=== PATIENT | female | born 1975 | race Caucasian/White ===

== ENCOUNTER 2018-11-16 22:28 | Emergency (ER) | payer SELFPAY ==
[2018-11-16] MEDS ORDERED: Sodium Chloride 0.9% 1,000 ML IV ONE (23:01)
[2018-11-16] MEDS ORDERED: Albuterol/Ipratropium 3.0-0.5 MG/3 ML Neb Soln NEB ONE (23:02)
[2018-11-16] MEDS ORDERED: methylPREDNISolone Sodium Succinate 125 MG/2 ML SDV IVPUSH ONE (23:02)
--- NOTE | 2018-11-16 23:03 | EDM.PDOC ---
ED HPI GENERAL MEDICAL PROBLEM - General Chief Complaint: Syncope Stated Complaint: PT FAINTED Time Seen by Provider: 11/16/18 23:03 Source of Information: Reports: Patient - History of Present Illness INITIAL COMMENTS - FREE TEXT/NARRATIVE: HISTORY AND PHYSICAL: History of present illness: [Patient with complaint of fainting She states she has been feeling generally weak similar to a previous episode of urosepsis states she did faint for a period after standing she is vague in this history no evidence of head injury or trauma no current distress whatsoever Denies fever nausea vomiting chills sweats no chest pain shortness breath headache dizziness palpitation no bowel or urine symptoms ] Review of systems: As per history of present illness and below otherwise all systems reviewed and negative. Past medical history: As per history of present illness and as reviewed below otherwise noncontributory. Surgical history: As per history of present illness and as reviewed below otherwise noncontributory. Social history: No reported history of drug or alcohol abuse. Family history: As per history of present illness and as reviewed below otherwise noncontributory. Physical exam: HEENT: Atraumatic, normocephalic, pupils reactive, negative for conjunctival pallor or scleral icterus, mucous membranes moist, throat clear, neck supple, nontender, trachea midline. Lungs: Clear to auscultation, breath sounds equal bilaterally, chest nontender. post neb and Solu-Medrol Heart: S1S2, regular, negative for clicks, rubs, or JVD. Abdomen: Soft, nondistended, nontender. Negative for masses or hepatosplenomegaly. Negative for costovertebral tenderness. Pelvis: Stable nontender. Genitourinary: Deferred. Rectal: Deferred. Extremities: Atraumatic, negative for cords or calf pain. Neurovascular unremarkable. Neuro: Awake, alert, oriented. Cranial nerves II through XII unremarkable. Cerebellum unremarkable. Motor and sensory unremarkable throughout. Exam nonfocal. Diagnostics: [CBC CMP UA hCG Chest [address] no contrast ] Therapeutics: ns saline DuoNeb Solu-Medrol 125 mg IV Levaquin 500 mg by mouth now and daily #10 no refill Patient observed for extended period resting comfortably for nearly 5 hours patient has been in no distress and remained hemodynamically stable during episode she has been up and out of bed to the bathroom several times without difficulty Impression: [ vasovagal Syncope] UTI Definitive disposition and diagnosis as appropriate pending reevaluation and review of above. Generalized Pain Score (Numeric/FACES): 3 - Related Data Allergies Allergy/AdvReac Type Severity Reaction Status Date / Time Penicillins Allergy Vomiting Verified 11/16/18 22:50 Home Meds: Home Meds Ondansetron [Zofran] 1 tab PO ASDIRECTED PRN 08/17/18 [History] Past Medical History HEENT History: Reports: Impaired Vision, Other (See Below) Other HEENT History: wears glasses Cardiovascular History: Reports: Hypertension Respiratory History: Reports: PE Psychiatric History: Reports: Anxiety Hematologic History: Reports: Other (See Below) Other Hematologic History: sepsis - Infectious Disease History Infectious Disease History: Reports: Chicken Pox Social & Family History - Family History Family Medical History: Noncontributory - Tobacco Use Smoking Status *Q: Current Every Day Smoker Years of Tobacco use: 27 Packs/Tins Daily: 1 - Recreational Drug Use Recreational Drug Use: No ED ROS GENERAL - Review of Systems Review Of Systems: See Below ED EXAM, GENERAL - Physical Exam Exam: See Below Course - Vital Signs Last Recorded V/S: Last Vital Signs Temp 99.0 F 11/16/18 22:51 Pulse 68 11/17/18 02:35 Resp 18 11/17/18 02:35 BP 125/78 11/17/18 02:35 Pulse Ox 97 11/17/18 02:11 - Orders/Labs/Meds Orders: Active Orders 24 hr Category Date Time Status EKG Documentation Completion [RC] STAT Care 11/16/18 23:02 Active RT Aerosol Therapy [RC] ASDIRECTED Care 11/16/18 23:02 Active Chest 1V Frontal [CR] Stat Exams 11/16/18 23:02 Taken Head wo Cont [CT] Stat Exams 11/16/18 23:02 Taken CULTURE URINE [RM] Stat Lab 11/16/18 23:30 Received Labs: Laboratory Tests 11/16/18 11/16/18 11/16/18 Range/Units 22:50 22:50 23:30 WBC 10.72 (4.0-11.0) K/uL RBC 4.18 L (4.30-5.90) M/uL Hgb 14.8 (12.0-16.0) g/dL Hct 41.8 (36.0-46.0) % MCV 100.0 H (80.0-98.0) fL MCH 35.4 H (27.0-32.0) pg MCHC 35.4 (31.0-37.0) g/dL RDW Std Deviation 53.6 (28.0-62.0) fl RDW Coeff of [place] 15 (11.0-15.0) % Plt Count 336 (150-400) K/uL MPV 8.80 (7.40-12.00) fL Neut % (Auto) 64.8 (48.0-80.0) % Lymph % (Auto) 25.0 (16.0-40.0) % [place] % (Auto) 9.8 (0.0-15.0) % Eos % (Auto) 0.2 (0.0-7.0) % Baso % (Auto) 0.2 (0.0-1.5) % Neut # (Auto) 7.0 H (1.4-5.7) K/uL Lymph # (Auto) 2.7 H (0.6-2.4) K/uL [place] # (Auto) 1.1 H (0.0-0.8) K/uL Eos # (Auto) 0.0 (0.0-0.7) K/uL Baso # (Auto) 0.0 (0.0-0.1) K/uL Nucleated RBC % 0.0 /100WBC Nucleated RBCs # 0 K/uL Sodium 140 (136-145) mmol/L Potassium 3.6 (3.5-5.1) mmol/L Chloride 104 (98-107) mmol/L Carbon Dioxide 22.2 (21.0-32.0) mmol/L BUN 9 (7.0-18.0) mg/dL Creatinine 0.8 (0.6-1.0) mg/dL Est Cr Clr Drug Dosing 81.03 mL/min Estimated GFR (MDRD) > 60.0 ml/min Glucose 114 H (74-106) mg/dL Calcium 9.3 (8.5-10.1) mg/dL Total Bilirubin 0.4 (0.2-1.0) mg/dL AST 27 (15-37) IU/L ALT 21 (14-63) IU/L Alkaline Phosphatase 115 (46-116) U/L Troponin I < 0.050 (0.000-0.056) ng/mL Total Protein 7.7 (6.4-8.2) g/dL Albumin 3.8 (3.4-5.0) g/dL Globulin 3.9 (2.6-4.0) g/dL Albumin/Globulin Ratio 1.0 (0.9-1.6) Urine Color YELLOW Urine Appearance CLOUDY Urine pH 7.0 (5.0-8.0) Ur Specific [place] 1.015 (1.001-1.035) Urine Protein TRACE H (NEGATIVE) mg/dL Urine Glucose (UA) NEGATIVE (NEGATIVE) mg/dL Urine Ketones 40 H (NEGATIVE) mg/dL Urine Occult Blood SMALL H (NEGATIVE) Urine Nitrite POSITIVE H (NEGATIVE) Urine Bilirubin NEGATIVE (NEGATIVE) Urine Urobilinogen 0.2 (<2.0) EU/dL Ur Leukocyte Esterase NEGATIVE (NEGATIVE) Urine RBC 3-6 (0-2/HPF) Urine WBC 0-1 (0-5/HPF) Ur Squamous Epith Cells FEW Urine Bacteria 3+ H (NEGATIVE) Urine Mucus LIGHT (NONE-MOD) Urine HCG, Qual (NEGATIVE) 11/16/18 Range/Units 23:30 WBC (4.0-11.0) K/uL RBC (4.30-5.90) M/uL Hgb (12.0-16.0) g/dL Hct (36.0-46.0) % MCV (80.0-98.0) fL MCH (27.0-32.0) pg MCHC (31.0-37.0) g/dL RDW Std Deviation (28.0-62.0) fl RDW Coeff of [place] (11.0-15.0) % Plt Count (150-400) K/uL MPV (7.40-12.00) fL Neut % (Auto) (48.0-80.0) % Lymph % (Auto) (16.0-40.0) % [place] % (Auto) (0.0-15.0) % Eos % (Auto) (0.0-7.0) % Baso % (Auto) (0.0-1.5) % Neut # (Auto) (1.4-5.7) K/uL Lymph # (Auto) (0.6-2.4) K/uL [place] # (Auto) (0.0-0.8) K/uL Eos # (Auto) (0.0-0.7) K/uL Baso # (Auto) (0.0-0.1) K/uL Nucleated RBC % /100WBC Nucleated RBCs # K/uL Sodium (136-145) mmol/L Potassium (3.5-5.1) mmol/L Chloride (98-107) mmol/L Carbon Dioxide (21.0-32.0) mmol/L BUN (7.0-18.0) mg/dL Creatinine (0.6-1.0) mg/dL Est Cr Clr Drug Dosing mL/min Estimated GFR (MDRD) ml/min Glucose (74-106) mg/dL Calcium (8.5-10.1) mg/dL Total Bilirubin (0.2-1.0) mg/dL AST (15-37) IU/L ALT (14-63) IU/L Alkaline Phosphatase (46-116) U/L Troponin I (0.000-0.056) ng/mL Total Protein (6.4-8.2) g/dL Albumin (3.4-5.0) g/dL Globulin (2.6-4.0) g/dL Albumin/Globulin Ratio (0.9-1.6) Urine Color Urine Appearance Urine pH (5.0-8.0) Ur Specific [place] (1.001-1.035) Urine Protein (NEGATIVE) mg/dL Urine Glucose (UA) (NEGATIVE) mg/dL Urine Ketones (NEGATIVE) mg/dL Urine Occult Blood (NEGATIVE) Urine Nitrite (NEGATIVE) Urine Bilirubin (NEGATIVE) Urine Urobilinogen (<2.0) EU/dL Ur Leukocyte Esterase (NEGATIVE) Urine RBC (0-2/HPF) Urine WBC (0-5/HPF) Ur Squamous Epith Cells Urine Bacteria (NEGATIVE) Urine Mucus (NONE-MOD) Urine HCG, Qual NEGATIVE (NEGATIVE) Meds: Medications Discontinued Medications Generic Name Dose Route Start Last Admin Trade Name Freq PRN Reason Stop Dose Admin Albuterol/Ipratropium 3 ml 11/16/18 23:02 11/16/18 23:33 Duoneb 3.0-0.5 Mg/3 Ml NEB 11/16/18 23:03 3 ml ONETIME ONE Administration Sodium Chloride 1,000 mls @ 999 mls/hr 11/16/18 23:01 11/16/18 23:26 Normal Saline IV 11/17/18 00:01 999 mls/hr STAT ONE Administration Levofloxacin 500 mg 11/17/18 01:28 Levaquin PO 11/17/18 01:29 ONETIME ONE Methylprednisolone Sodium Succinate 125 mg 11/16/18 23:02 11/16/18 23:27 Solu-Medrol IVPUSH 11/16/18 23:03 125 mg ONETIME ONE Administration Ondansetron HCl 8 mg 11/16/18 23:21 11/16/18 23:26 Zofran IVPUSH 11/16/18 23:22 8 mg ONETIME ONE Administration Ondansetron HCl Confirm 11/16/18 23:23 11/16/18 23:36 Zofran Administered 11/16/18 23:24 Not Given Dose 8 mg .ROUTE .STK-MED ONE Departure - Departure Time of Disposition: 03:08 Disposition: Home, Self-Care 01 Condition: Good Clinical Impression: UTI (urinary tract infection), Vasovagal syncope - Discharge Information Referrals: PCP,None [Primary Care Provider] - Forms: ED Department Discharge Additional Instructions: The following information is given to patients seen in the emergency department who are being discharged to home. This information is to outline your options for follow-up care. We provide all patients seen in our emergency department with a follow-up referral. The need for follow-up, as well as the timing and circumstances, are variable depending upon the specifics of your emergency department visit. If you don't have a primary care physician on staff, we will provide you with a referral. We always advise you to contact your personal physician following an emergency department visit to inform them of the circumstance of the visit and for follow-up with them and/or the need for any referrals to a consulting specialist. The emergency department will also refer you to a specialist when appropriate. This referral assures that you have the opportunity for follow-up care with a specialist. All of these measure are taken in an effort to provide you with optimal care, which includes your follow-up. Under all circumstances we always encourage you to contact your private physician who remains a resource for coordinating your care. When calling for follow-up care, please make the office aware that this follow-up is from your recent emergency room visit. If for any reason you are refused follow-up, please contact the [facility] emergency department at and asked to speak to the emergency department charge nurse. - My Orders Last 24 Hours: My Active Orders 11/16/18 23:02 EKG Documentation Completion [RC] STAT RT Aerosol Therapy [RC] ASDIRECTED Chest 1V Frontal [CR] Stat Head wo Cont [CT] Stat 11/16/18 23:30 CULTURE URINE [RM] Stat - Assessment/Plan Last 24 Hours: My Active Orders 11/16/18 23:02 EKG Documentation Completion [RC] STAT RT Aerosol Therapy [RC] ASDIRECTED Chest 1V Frontal [CR] Stat Head wo Cont [CT] Stat 11/16/18 23:30 CULTURE URINE [RM] Stat
[2018-11-16] MEDS ORDERED: Ondansetron 4 MG/2 ML SDV IVPUSH ONE (23:21)
[2018-11-16 23:22] LABS: CHLORIDE,CL 104 mmol/L (98-107); SODIUM,NA 140 mmol/L (136-145)
[2018-11-16] MEDS ORDERED: Ondansetron 4 MG/2 ML SDV ONE (23:23)
[2018-11-17] MEDS ORDERED: Levofloxacin 500 MG Tab PO ONE (01:28)
--- NOTE | 2018-11-17 11:41 | CR ---
EXAM DATE: 11/16/18 PATIENT'S AGE: 43 Patient: MARVEL DARDEN Facility: [place], [place] Site . Site : 1975 Study: XRay Chest [id number]/16/2019 12:19:56 AM Ordering Physician: Jim Huston Final Report: Indication: Syncope Technique: Chest 1 view. Comparison: None Findings: Cardiovascular and mediastinum: Heart size and vasculature are normal in caliber and appearance. Mediastinum is within normal limits. Lungs and pleural space: Lungs are clear. No sign of infiltrate or mass. No sign of pleural effusion. No pneumothorax. Bones and soft tissues: No significant findings. Impression: No sign of acute disease. Dictated by Jeni Connor MD @ Nov 17 2018 12:23AM (Electronic Signature) Report Signed by Proxy. [facility] MEDICAL CENTERAnuel
--- NOTE | 2018-11-17 11:42 | CT ---
EXAM DATE: 11/16/18 PATIENT'S AGE: 43 Patient: MARVEL DARDEN Facility: [place], [place] Site . Site : 1975 Study: CT Head [id number]/16/2019 12:20:28 AM Ordering Physician: Jim Huston Final Report: INDICATION: Syncope TECHNIQUE: CT head without contrast. COMPARISON: None FINDINGS: CSF spaces: Within normal limits for age. Brain parenchyma: The lechuga-white differentiation is normal. No sign of mass, hemorrhage, or midline shift. Skull base and calvarium: The visualized paranasal sinuses and mastoid air cells demonstrate no acute or significant findings. The visualized orbits are grossly unremarkable. No skull fractures. IMPRESSION: Unremarkable noncontrast head CT. Please note that all CT scans at this facility use dose modulation, iterative reconstruction, and/or weight-based dosing when appropriate to reduce radiation dose to as low as reasonably achievable. Dictated by Jeni Connor MD @ Nov 17 2018 12:39AM (Electronic Signature) Report Signed by Proxy. [facility]TD[facility]
== END 2018-11-17 03:23 | disposition home or self-care (01) ==
LOC: MW.ED 22:28
DX: R55 Syncope and collapse (principal); N39.0 Urinary tract infection, site not specified; I10 Essential (primary) hypertension; F17.210 Nicotine dependence, cigarettes, uncomplicated; Z88.0 Allergy status to penicillin
CPT/HCPCS: 36415; 70450; 71045; 80053; 81001; 81025; 84484; 85025; 87086; 87088; 87186; 93005; 96361; 96374; 96375; 99285; A9270; J2405; J2930; J7040; J7620-GY

== ENCOUNTER 2018-11-20 17:39 | Emergency (ER) | payer SELFPAY ==
--- NOTE | 2018-11-20 18:02 | EDM.PDOC ---
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 Past medical history: As per history of present illness and as reviewed below otherwise noncontributory. Surgical history: As per history of present illness and as reviewed below otherwise noncontributory. Social history: No reported history of drug or alcohol abuse. Family history: As per history of present illness and as reviewed below otherwise noncontributory. Physical exam: HEENT: Atraumatic, normocephalic, pupils reactive, negative for conjunctival pallor or scleral icterus, mucous membranes moist, throat clear, neck supple, nontender, trachea midline. Lungs: Clear to auscultation, breath sounds equal bilaterally, chest nontender. Heart: S1S2, regular, negative for clicks, rubs, or JVD. Abdomen: Soft, nondistended, nontender. Negative for masses or hepatosplenomegaly. Negative for costovertebral tenderness. Pelvis: Stable nontender. Genitourinary: Deferred. Rectal: Deferred. Extremities: Atraumatic, negative for cords or calf pain. Neurovascular unremarkable. Neuro: Awake, alert, oriented. Cranial nerves II through XII unremarkable. Cerebellum unremarkable. Motor and sensory unremarkable throughout. Exam nonfocal. Diagnostics: []CBC CMP UA Carboxyhemoglobin Therapeutics: [] fix the carbon monoxide leak Impression: [] carbon monoxide exposure Definitive disposition and diagnosis as appropriate pending reevaluation and review of above. - Related Data Allergies Allergy/AdvReac Type Severity Reaction Status Date / Time Penicillins Allergy Vomiting Verified 11/20/18 17:52 Home Meds: Home Meds Ondansetron [Zofran] 1 tab PO ASDIRECTED PRN 08/17/18 [History] levoFLOXacin [Levaquin] 1 tab PO DAILY 11/20/18 [History] Past Medical History HEENT History: Reports: Impaired Vision, Other (See Below) Other HEENT History: wears glasses Cardiovascular History: Reports: Hypertension Respiratory History: Reports: PE Psychiatric History: Reports: Anxiety Hematologic History: Reports: Other (See Below) Other Hematologic History: sepsis - Infectious Disease History Infectious Disease History: Reports: Chicken Pox Social & Family History - Family History Family Medical History: Noncontributory - Tobacco Use Smoking Status *Q: Current Every Day Smoker Years of Tobacco use: 20 Packs/Tins Daily: 1 - Caffeine Use Caffeine Use: Reports: Coffee - Recreational Drug Use Recreational Drug Use: No ED ROS GENERAL - Review of Systems Review Of Systems: See Below ED EXAM, GENERAL - Physical Exam Exam: See Below Course - Vital Signs Last Recorded V/S: Last Vital Signs Temp 98.7 F 11/20/18 17:54 Pulse 86 11/20/18 17:54 Resp 16 11/20/18 17:54 BP 177/89 H 11/20/18 17:54 Pulse Ox 99 11/20/18 17:54 - Orders/Labs/Meds Orders: Active Orders 24 hr Category Date Time Status EKG Documentation Completion [RC] STAT Care 11/20/18 18:05 Active COMPREHENSIVE METABOLIC PN,CMP [CHEM] Stat Lab 11/20/18 18:18 Received HCG QUALITATIVE,URINE [URCHEM] Stat Lab 11/20/18 18:15 Ordered UA RFX VY AND CULT IF INDIC [URIN] Stat Lab 11/20/18 18:00 Ordered Labs: Laboratory Tests 11/20/18 11/20/18 Range/Units 18:18 18:18 WBC 11.60 H (4.0-11.0) K/uL RBC 3.59 L (4.30-5.90) M/uL Hgb 12.5 (12.0-16.0) g/dL Hct 36.2 (36.0-46.0) % MCV 100.8 H (80.0-98.0) fL MCH 34.8 H (27.0-32.0) pg MCHC 34.5 (31.0-37.0) g/dL RDW Std Deviation 53.0 (28.0-62.0) fl RDW Coeff of [place] 14 (11.0-15.0) % Plt Count 250 (150-400) K/uL MPV 9.00 (7.40-12.00) fL Neut % (Auto) 64.7 (48.0-80.0) % Lymph % (Auto) 27.5 (16.0-40.0) % [place] % (Auto) 6.8 (0.0-15.0) % Eos % (Auto) 0.8 (0.0-7.0) % Baso % (Auto) 0.2 (0.0-1.5) % Neut # (Auto) 7.5 H (1.4-5.7) K/uL Lymph # (Auto) 3.2 H (0.6-2.4) K/uL [place] # (Auto) 0.8 (0.0-0.8) K/uL Eos # (Auto) 0.1 (0.0-0.7) K/uL Baso # (Auto) 0.0 (0.0-0.1) K/uL Nucleated RBC % 0.0 /100WBC Nucleated RBCs # 0 K/uL ABG Carboxyhemoglobin 7.7 (0-15) % Departure - Departure Time of Disposition: 18:41 Disposition: Home, Self-Care 01 Condition: Good Clinical Impression: Carbon monoxide exposure - Discharge Information Forms: ED Department Discharge Additional Instructions: The following information is given to patients seen in the emergency department who are being discharged to home. This information is to outline your options for follow-up care. We provide all patients seen in our emergency department with a follow-up referral. The need for follow-up, as well as the timing and circumstances, are variable depending upon the specifics of your emergency department visit. If you don't have a primary care physician on staff, we will provide you with a referral. We always advise you to contact your personal physician following an emergency department visit to inform them of the circumstance of the visit and for follow-up with them and/or the need for any referrals to a consulting specialist. The emergency department will also refer you to a specialist when appropriate. This referral assures that you have the opportunity for follow-up care with a specialist. All of these measure are taken in an effort to provide you with optimal care, which includes your follow-up. Under all circumstances we always encourage you to contact your private physician who remains a resource for coordinating your care. When calling for follow-up care, please make the office aware that this follow-up is from your recent emergency room visit. If for any reason you are refused follow-up, please contact the [facility] emergency department at and asked to speak to the emergency department charge nurse. - My Orders Last 24 Hours: My Active Orders 11/20/18 18:00 UA RFX VY AND CULT IF INDIC [URIN] Stat 11/20/18 18:05 EKG Documentation Completion [RC] STAT 11/20/18 18:15 HCG QUALITATIVE,URINE [URCHEM] Stat 11/20/18 18:18 COMPREHENSIVE METABOLIC PN,CMP [CHEM] Stat - Assessment/Plan Last 24 Hours: My Active Orders 11/20/18 18:00 UA RFX VY AND CULT IF INDIC [URIN] Stat 11/20/18 18:05 EKG Documentation Completion [RC] STAT 11/20/18 18:15 HCG QUALITATIVE,URINE [URCHEM] Stat 11/20/18 18:18 COMPREHENSIVE METABOLIC PN,CMP [CHEM] Stat
[2018-11-20 18:50] LABS: CHLORIDE,CL 102 mmol/L (98-107); SODIUM,NA 139 mmol/L (136-145)
== END 2018-11-20 19:08 | disposition home or self-care (01) ==
LOC: MW.ED 17:39
DX: T58.91XA Toxic effect of carbon monoxide from unspecified source, accidental (unintentional), initial encounter (principal); I10 Essential (primary) hypertension; F17.210 Nicotine dependence, cigarettes, uncomplicated; Z88.0 Allergy status to penicillin; Z79.899 Other long term (current) drug therapy
CPT/HCPCS: 36415; 80053; 81001; 81025; 82375; 85025; 93005; 99283; 99284-25

== ENCOUNTER 2019-03-13 18:06 | Emergency (ER) | payer OTHER ==
[2019-03-13] MEDS ORDERED: Ketorolac 60 MG/2 ML SDV IM ONE (19:08)
--- NOTE | 2019-03-13 19:15 | EDM.PDOC ---
ED HPI GENERAL MEDICAL PROBLEM - General Chief Complaint: Upper Extremity Injury/Pain Stated Complaint: LEFT SHOULDER INJURY Time Seen by Provider: 03/13/19 18:28 Source of Information: Reports: Patient History Limitations: Reports: No Limitations - History of Present Illness INITIAL COMMENTS - FREE TEXT/NARRATIVE: HISTORY AND PHYSICAL: History of present illness: Patient is a 43-year-old female presents to the ED today with concern of left shoulder injury that occurred yesterday. 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 Patient states since then she has had pain with range of motion of the shoulder. Patient denies any prior injury to the shoulder. Patient has been taking Tylenol and ibuprofen without relief of symptoms. Patient states she is also concerned that she has a DVT as she has had some pain in her right calf. Patient states she has a history of a PE and prior DVT and she is concerned that her symptoms are similar with her leg in that she's had some intermittent swelling of her right calf. Patient denies any shortness of breath or any other symptoms at this time. Patient denies fever, chills, chest pain, shortness of breath, or cough. Denies headache, neck stiff ness, change in vision, syncope, or near syncope. Denies nausea, vomiting, abdominal pain, diarrhea, constipation, or dysuria. Has not noted any blood in urine or stool. Patient has been eating and drinking appropriately. Review of systems: As per history of present illness and below otherwise all systems reviewed and negative. Past medical history: As per history of present illness and as reviewed below otherwise noncontributory. Surgical history: As per history of present illness and as reviewed below otherwise noncontributory. Social history: See social history for further information Family history: As per history of present illness and as reviewed below otherwise noncontributory. Physical exam: General: Patient is alert, oriented, and in no acute distress. Patient sitting comfortably on exam table. Patient appears older than stated age. HEENT: Atraumatic, normocephalic, pupils equal and reactive bilaterally, negative for conjunctival pallor or scleral icterus, mucous membranes moist, TMs normal bilaterally, throat clear, neck supple, nontender, trachea midline. No drooling or trismus noted. No meningeal signs. No hot potato voice noted. Lungs: Clear to auscultation, breath sounds equal bilaterally, chest nontender. Heart: S1S2, regular rate and rhythm without overt murmur Abdomen: Soft, nondistended, nontender. Negative for masses or hepatosplenomegaly. Negative for costovertebral tenderness. Pelvis: Stable nontender. Genitourinary: Deferred. Rectal: Deferred. Skin: Intact, warm, dry. No lesions or rashes noted. Extremities:Negative for cords or calf pain. Neurovascular unremarkable. Range of motion of left shoulder is limited due to pain with both active and passive. No obvious deformities noted of the shoulder. No step-offs, or crepitus noted of palpation. Patient has generalized pain to palpation of the shoulder. Radial pulses grossly intact with capillary refill less than 2 seconds. Negative pain to palpation of the bilateral lower extremities without any edema, or erythema. Neuro: Awake, alert, oriented. Cranial nerves II through XII unremarkable. Cerebellum unremarkable. Motor and sensory unremarkable throughout. Exam nonfocal. Notes: Patient would not move her arm for different XR views. Discussed the importance of follow-up with an orthopedic provider and primary care provider. Voices understanding and is agreeable to plan of care. Denies any further questions or concerns at this time. Diagnostics: Shoulder x-ray, venous LE US Therapeutics: Toradol, arm sling Prescription: Diclofenac Impression: Left shoulder injury Medical screening exam Plan: 1. Rest, ice, elevate the affected area. You can apply ice 15 minutes on, 15 minutes off. 2. Tylenol as directed for pain management or discomfort. Take medication as prescribed. 3. Follow up with the Orthopedic provider/primary care provider as discussed. Return to the ED as needed and as discussed. Definitive disposition and diagnosis as appropriate pending reevaluation and review of above. left shoulder Pain Score (Numeric/FACES): 5 - Related Data Allergies Allergy/AdvReac Type Severity Reaction Status Date / Time Penicillins Allergy Vomiting Verified 03/13/19 18:31 Home Meds: Home Meds Ondansetron [Zofran] 1 tab PO ASDIRECTED PRN 08/17/18 [History] Promethazine [Phenergan] 10 mg PO ASDIRECTED 03/13/19 [History] Past Medical History HEENT History: Reports: Impaired Vision, Other (See Below) Other HEENT History: wears glasses Cardiovascular History: Reports: Hypertension Respiratory History: Reports: PE Gastrointestinal History: Reports: None Genitourinary History: Reports: UTI, Recurrent Other Genitourinary History: anorexia [employer]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 Musculoskeletal History: Reports: None Neurological History: Reports: None Psychiatric History: Reports: Anxiety Endocrine/Metabolic History: Reports: None Hematologic History: Reports: Other (See Below) Other Hematologic History: sepsis Immunologic History: Reports: None Oncologic (Cancer) History: Reports: None Dermatologic History: Reports: None, Other (See Below) Other Dermatologic History: DVT - Infectious Disease History Infectious Disease History: Reports: Chicken Pox, Other (See Below) Other Infectious Disease History: sepsis - Past Surgical History Head Surgeries/Procedures: Reports: None HEENT Surgical History: Reports: None Cardiovascular Surgical History: Reports: None Respiratory Surgical History: Reports: None GI Surgical History: Reports: None Female Surgical History: Reports: None Endocrine Surgical History: Reports: None Neurological Surgical History: Reports: None Musculoskeletal Surgical History: Reports: None Oncologic Surgical History: Reports: None Dermatological Surgical History: Reports: None Social & Family History - Family History Family Medical History: Noncontributory - Tobacco Use Smoking Status *Q: Current Every Day Smoker Years of Tobacco use: 27 Packs/Tins Daily: 0.7 - Caffeine Use Caffeine Use: Reports: Coffee - Recreational Drug Use Recreational Drug Use: No Review of Systems - Review of Systems Review Of Systems: ROS reveals no pertinent complaints other than HPI. ED EXAM, GENERAL - Physical Exam Exam: See Below (See dictation) Course - Vital Signs Last Recorded V/S: Last Vital Signs Temp 36.8 C 03/13/19 20:38 Pulse 70 03/13/19 20:38 Resp 16 03/13/19 20:38 BP 144/62 H 03/13/19 20:38 Pulse Ox 99 03/13/19 20:38 - Orders/Labs/Meds Orders: Active Orders 24 hr Category Date Time Status DME for Discharge [COMM] Stat Oth 03/13/19 19:15 Ordered Meds: Medications Discontinued Medications Generic Name Dose Route Start Last Admin Trade Name Freq PRN Reason Stop Dose Admin Ketorolac Tromethamine 60 mg 03/13/19 19:08 03/13/19 19:27 Toradol IM 03/13/19 19:09 Not Given ONETIME ONE Departure - Departure Time of Disposition: 21:19 Disposition: Home, Self-Care 01 Clinical Impression: Encounter for medical screening examination Shoulder injury Qualifiers: Encounter type: initial encounter Laterality: left Qualified Code(s): S49.92XA - Unspecified injury of left shoulder and upper arm, initial encounter - Discharge Information Referrals: PCP,None [Primary Care Provider] - Forms: ED Department Discharge Additional Instructions: The following information is given to patients seen in the emergency department who are being discharged to home. This information is to outline your options for follow-up care. We provide all patients seen in our emergency department with a follow-up referral. The need for follow-up, as well as the timing and circumstances, are variable depending upon the specifics of your emergency department visit. If you don't have a primary care physician on staff, we will provide you with a referral. We always advise you to contact your personal physician following an emergency department visit to inform them of the circumstance of the visit and for follow-up with them and/or the need for any referrals to a consulting specialist. The emergency department will also refer you to a specialist when appropriate. This referral assures that you have the opportunity for follow-up care with a specialist. All of these measure are taken in an effort to provide you with optimal care, which includes your follow-up. Under all circumstances we always encourage you to contact your private physician who remains a resource for coordinating your care. When calling for follow-up care, please make the office aware that this follow-up is from your recent emergency room visit. If for any reason you are refused follow-up, please contact the [facility] Emergency Department at and asked to speak to the emergency department charge nurse. [facility] [address] [place] [id number] [address] [facility] Professional Building [address] [facility], [address] [place] [address] 1. Rest, ice, elevate the affected area. You can apply ice 15 minutes on, 15 minutes off. 2. Tylenol as directed for pain management or discomfort. Take medication as prescribed. 3. Follow up with the Orthopedic provider/primary care provider as discussed. Return to the ED as needed and as discussed. - My Orders Last 24 Hours: My Active Orders 03/13/19 19:15 DME for Discharge [COMM] Stat - Assessment/Plan Last 24 Hours: My Active Orders 03/13/19 19:15 DME for Discharge [COMM] Stat
--- NOTE | 2019-03-13 19:32 | CR ---
INDICATION: cat jumped on shoulder INDICATION: Injury. TECHNIQUE: Left shoulder, single portable upright view. COMPARISON: None FINDINGS: Bones: Alignment is normal. No fractures or bone lesions. Joint spaces: Unremarkable. Soft tissues: Lungs are normal where visualized. There is no pneumothorax. IMPRESSION: There is no fracture identified. Dictated by Marek Ricardo MD @ 03/13/2019 7:30:56 PM Dictated by: Marek Ricardo MD @ 03/13/2019 19:31:03 (Electronically Signed)
--- NOTE | 2019-03-13 21:05 | US ---
HISTORY: Right calf pain. TECHNIQUE: Deep venous system of right lower extremity was examined using grayscale, color and Doppler techniques. Compression was assessed where able to be assessed. COMPARISON: No prior. FINDINGS: The right common femoral, superior aspect of the greater saphenous, femoral, popliteal, posterior tibial and peroneal veins are patent without thrombus. IMPRESSION: No deep venous thrombosis within the right lower extremity. Dictated by Dima Gooden MD @ 03/13/2019 9:01:59 PM Dictated by: Dima Gooden MD @ 03/13/2019 21:03:05 (Electronically Signed)
== END 2019-03-13 21:32 | disposition home or self-care (01) ==
LOC: MW.ED 18:06
DX: S49.92XA Unspecified injury of left shoulder and upper arm, initial encounter (principal); I10 Essential (primary) hypertension; F17.210 Nicotine dependence, cigarettes, uncomplicated; Z88.0 Allergy status to penicillin; Z79.899 Other long term (current) drug therapy; W18.09XA Striking against other object with subsequent fall, initial encounter; Y99.0 Civilian activity done for income or pay
CPT/HCPCS: 73030-26-LT; 73030-LT; 93971-26-RT; 93971-RT; 99284-25

== ENCOUNTER 2019-10-27 15:18 | Emergency (ER) | payer SELFPAY ==
--- NOTE | 2019-10-27 15:33 | EDM.PDOC ---
ED HPI GENERAL MEDICAL PROBLEM - General Chief Complaint: Gastrointestinal Problem Stated Complaint: NAUSEA/VOMITING Time Seen by Provider: 10/27/19 15:28 Source of Information: Reports: Patient History Limitations: Reports: No Limitations - History of Present Illness INITIAL COMMENTS - FREE TEXT/NARRATIVE: Patient is a 44-year-old female is complaining of having nausea with diarrhea. Symptoms started approximately 2 weeks ago initially she was also vomiting but has not been vomiting currently. Patient feels she is dehydrated and has lightheaded symptoms with standing. Patient also is complaining of feeling achy all over denies any significant headache or neck pain or stiffness or any cough or dysuria. Dority of her symptoms are consistent with flu. Duration: Week(s): (2) Location: Reports: Generalized Quality: Reports: Ache, Dull Severity: Moderate Improves with: Reports: None Worsens with: Reports: None Associated Symptoms: Reports: Cough, Loss of Appetite, Malaise. Denies: Fever/ Chills, Headaches, Nausea/Vomiting body aches Pain Score (Numeric/FACES): 5 - Related Data Allergies Allergy/AdvReac Type Severity Reaction Status Date / Time Penicillins Allergy Vomiting Verified 03/13/19 18:31 Home Meds: Home Meds Ondansetron [Zofran] 1 tab PO ASDIRECTED PRN 08/17/18 [History] Promethazine [Phenergan] 10 mg PO ASDIRECTED 03/13/19 [History] Past Medical History HEENT History: Reports: Impaired Vision, Other (See Below) Other HEENT History: wears glasses Cardiovascular History: Reports: Hypertension Respiratory History: Reports: PE Gastrointestinal History: Reports: None Genitourinary History: Reports: UTI, Recurrent Other Genitourinary History: anorexia [employer]BACK SPECIALIST History: Reports: None Musculoskeletal History: Reports: None Neurological History: Reports: None Psychiatric History: Reports: Anxiety Endocrine/Metabolic History: Reports: None Hematologic History: Reports: Other (See Below) Other Hematologic History: sepsis Immunologic History: Reports: None Oncologic (Cancer) History: Reports: None Dermatologic History: Reports: None, Other (See Below) Other Dermatologic History: DVT - Infectious Disease History Infectious Disease History: Reports: Chicken Pox, Other (See Below) Other Infectious Disease History: sepsis - Past Surgical History Head Surgeries/Procedures: Reports: None HEENT Surgical History: Reports: None Cardiovascular Surgical History: Reports: None Respiratory Surgical History: Reports: None GI Surgical History: Reports: None Female Surgical History: Reports: None Endocrine Surgical History: Reports: None Neurological Surgical History: Reports: None Musculoskeletal Surgical History: Reports: None Oncologic Surgical History: Reports: None Dermatological Surgical History: Reports: None Social & Family History - Family History Family Medical History: Noncontributory - Caffeine Use Caffeine Use: Reports: Coffee ED ROS GENERAL - Review of Systems Review Of Systems: Comprehensive ROS is negative, except as noted in HPI. ED EXAM, GI/ABD - Physical Exam Exam: See Below Exam Limited By: No Limitations General Appearance: Alert, No Apparent Distress Head: Atraumatic, Normocephalic Neck: Normal Inspection, Supple, Non-Tender Respiratory/Chest: No Respiratory Distress, Lungs Clear, Normal Breath Sounds GI/Abdominal Exam: Normal Bowel Sounds, Soft, Non-Tender, No Organomegaly Back Exam: Normal Inspection Extremities: Normal Inspection Neurological: Alert, Oriented, Normal Cognition Psychiatric: Normal Affect, Normal Mood Skin Exam: Other (Mucous membranes dry.) Course - Vital Signs Last Recorded V/S: Last Vital Signs Temp 37.0 C 10/27/19 15:27 Pulse 83 10/27/19 15:27 Resp 16 10/27/19 15:27 BP 193/110 H 10/27/19 15:27 Pulse Ox 96 10/27/19 15:27 - Orders/Labs/Meds Orders: Active Orders 24 hr Category Date Time Status Sodium Chloride 0.9% [Saline Flush] Med 10/27/19 15:37 Active 10 ml FLUSH ASDIRECTED PRN Sodium Chloride 0.9% [Saline Flush] Med 10/27/19 15:37 Active 2.5 ml FLUSH ASDIRECTED PRN Saline Lock Insert [OM.PC] Stat Oth 10/27/19 15:37 Ordered Medication Orders Sodium Chloride (Saline Flush) 10 ml FLUSH ASDIRECTED PRN PRN Reason: Keep Vein Open Last Admin: 10/27/19 15:47 Dose: 10 ml Sodium Chloride (Saline Flush) 2.5 ml FLUSH ASDIRECTED PRN PRN Reason: Keep Vein Open Last Admin: 10/27/19 15:47 Dose: 2.5 ml Labs: Laboratory Tests 10/27/19 10/27/19 10/27/19 Range/Units 15:37 15:56 15:56 WBC 9.06 (4.0-11.0) K/uL RBC 4.18 L (4.30-5.90) M/uL Hgb 15.6 (12.0-16.0) g/dL Hct 43.8 (36.0-46.0) % MCV 104.8 H (80.0-98.0) fL MCH 37.3 H (27.0-32.0) pg MCHC 35.6 (31.0-37.0) g/dL RDW Std Deviation 56.0 (28.0-62.0) fl RDW Coeff of [place] 15 (11.0-15.0) % Plt Count 220 (150-400) K/uL MPV 9.00 (7.40-12.00) fL Neut % (Auto) 61.2 (48.0-80.0) % Lymph % (Auto) 27.7 (16.0-40.0) % [place] % (Auto) 9.7 (0.0-15.0) % Eos % (Auto) 1.2 (0.0-7.0) % Baso % (Auto) 0.2 (0.0-1.5) % Neut # (Auto) 5.5 (1.4-5.7) K/uL Lymph # (Auto) 2.5 H (0.6-2.4) K/uL [place] # (Auto) 0.9 H (0.0-0.8) K/uL Eos # (Auto) 0.1 (0.0-0.7) K/uL Baso # (Auto) 0.0 (0.0-0.1) K/uL Nucleated RBC % 0.0 /100WBC Nucleated RBCs # 0 K/uL Sodium 141 (136-145) mmol/L Potassium 3.8 (3.5-5.1) mmol/L Chloride 103 (98-107) mmol/L Carbon Dioxide 27.6 (21.0-32.0) mmol/L BUN 8 (7.0-18.0) mg/dL Creatinine 0.7 (0.6-1.0) mg/dL Est Cr Clr Drug Dosing 87.21 mL/min Estimated GFR (MDRD) > 60.0 ml/min Glucose 76 (74-106) mg/dL Calcium 8.5 (8.5-10.1) mg/dL Total Bilirubin 0.6 (0.2-1.0) mg/dL AST 106 H (15-37) IU/L ALT 49 (14-63) IU/L Alkaline Phosphatase 165 H (46-116) U/L Total Protein 7.5 (6.4-8.2) g/dL Albumin 3.6 (3.4-5.0) g/dL Globulin 3.9 (2.6-4.0) g/dL Albumin/Globulin Ratio 0.9 (0.9-1.6) Urine Color YELLOW Urine Appearance HAZY Urine pH 6.5 (5.0-8.0) Ur Specific [place] 1.020 (1.001-1.035) Urine Protein NEGATIVE (NEGATIVE) mg/dL Urine Glucose (UA) NEGATIVE (NEGATIVE) mg/dL Urine Ketones NEGATIVE (NEGATIVE) mg/dL Urine Occult Blood MODERATE H (NEGATIVE) Urine Nitrite POSITIVE H (NEGATIVE) Urine Bilirubin NEGATIVE (NEGATIVE) Urine Urobilinogen 0.2 (<2.0) EU/dL Ur Leukocyte Esterase TRACE H (NEGATIVE) Urine RBC 5-10 (0-2/HPF) Urine WBC 0-3 (0-5/HPF) Ur Epithelial Cells RARE (NONE-FEW) Urine Bacteria 3+ H (NEGATIVE) Meds: Medications Generic Name Dose Route Start Last Admin Trade Name Freq PRN Reason Stop Dose Admin Sodium Chloride 10 ml 10/27/19 15:37 10/27/19 15:47 Saline Flush FLUSH 10 ml ASDIRECTED PRN Administration Keep Vein Open Sodium Chloride 2.5 ml 10/27/19 15:37 10/27/19 15:47 Saline Flush FLUSH 2.5 ml ASDIRECTED PRN Administration Keep Vein Open Discontinued Medications Generic Name Dose Route Start Last Admin Trade Name Freq PRN Reason Stop Dose Admin Sodium Chloride 1,000 mls @ 999 mls/hr 10/27/19 15:37 10/27/19 15:47 Normal Saline IV 10/27/19 16:37 999 mls/hr BOLUS ONE Administration Ketorolac Tromethamine 30 mg 10/27/19 15:37 10/27/19 15:47 Toradol IVPUSH 10/27/19 15:38 30 mg ONETIME ONE Administration Ondansetron HCl 4 mg 10/27/19 15:37 10/27/19 15:47 Zofran IVPUSH 10/27/19 15:38 4 mg ONETIME ONE Administration - Re-Assessments/Exams Free Text/Narrative Re-Assessment/Exam: 10/27/19 17:00 Patient's urine shows she has a urinary tract infection for which I will start her on Bactrim. The remainder of her labs are unremarkable. Patient had a liter of fluid is feeling a little bit better is refusing a second liter at this time and would prefer to go home. Patient's influenza test is negative. Departure - Departure Time of Disposition: 17:00 Disposition: Home, Self-Care 01 Condition: Good Clinical Impression: Gastroenteritis, Flu-like symptoms, UTI, Urinary tract infectious disease, UTI (urinary tract infection) - Discharge Information Instructions: Dehydration, Adult, [id number], Viral Gastroenteritis, Adult Referrals: PCP,None [Primary Care Provider] - Forms: ED Department Discharge Additional Instructions: [id number] Imodium as needed. Zofran if needed. [place] for flulike symptoms. Use fluids to keep your urine clear. Bactrim as prescribed. Follow- up with PCP to recheck urine and other symptoms in 1 week's time. Follow-up sooner or return to ER if not improving or worse. The following information is given to patients seen in the emergency department who are being discharged to home. This information is to outline your options for follow-up care. We provide all patients seen in our emergency department with a follow-up referral. The need for follow-up, as well as the timing and circumstances, are variable depending upon the specifics of your emergency department visit. If you don't have a primary care physician on staff, we will provide you with a referral. We always advise you to contact your personal physician following an emergency department visit to inform them of the circumstance of the visit and for follow-up with them and/or the need for any referrals to a consulting specialist. The emergency department will also refer you to a specialist when appropriate. This referral assures that you have the opportunity for follow-up care with a specialist. All of these measure are taken in an effort to provide you with optimal care, which includes your follow-up. Under all circumstances we always encourage you to contact your private physician who remains a resource for coordinating your care. When calling for follow-up care, please make the office aware that this follow-up is from your recent emergency room visit. If for any reason you are refused follow-up, please contact the [facility] Emergency Department at and asked to speak to the emergency department charge nurse. Sepsis Event Note - Focused Exam Vital Signs: Vital Signs Temp Pulse Resp BP Pulse Ox 10/27/19 15:27 37.0 C 83 16 193/110 H 96 Date Exam was Performed: 10/27/19 Time Exam was Performed: 16:56 - My Orders Last 24 Hours: My Active Orders 10/27/19 15:37 Sodium Chloride 0.9% [Saline Flush] 10 ml FLUSH ASDIRECTED PRN Sodium Chloride 0.9% [Saline Flush] 2.5 ml FLUSH ASDIRECTED PRN Saline Lock Insert [OM.PC] Stat - Assessment/Plan Last 24 Hours: My Active Orders 10/27/19 15:37 Sodium Chloride 0.9% [Saline Flush] 10 ml FLUSH ASDIRECTED PRN Sodium Chloride 0.9% [Saline Flush] 2.5 ml FLUSH ASDIRECTED PRN Saline Lock Insert [OM.PC] Stat
[2019-10-27] MEDS ORDERED: Sodium Chloride 0.9% 1,000 ML IV ONE (15:37)
[2019-10-27] MEDS ORDERED: Ondansetron 4 MG/2 ML SDV IVPUSH ONE (15:37)
[2019-10-27] MEDS ORDERED: Sodium Chloride 0.9% 2.5 ML Syringe FLUSH PRN (15:37)
[2019-10-27] MEDS ORDERED: Ketorolac 30 MG/ML SDV IVPUSH ONE (15:37)
[2019-10-27] MEDS ORDERED: Sodium Chloride 0.9% 10 ML Syringe FLUSH PRN (15:37)
[2019-10-27 16:36] LABS: BLOOD UREA NITROGEN,BUN 8 mg/dL (7.0-18.0); CARBON DIOXIDE,CO2 27.6 mmol/L (21.0-32.0); CHLORIDE,CL 103 mmol/L (98-107); GLUCOSE RANDOM 76 mg/dL (74-106); POTASSIUM,K 3.8 mmol/L (3.5-5.1); SODIUM,NA 141 mmol/L (136-145)
== END 2019-10-27 17:19 | disposition home or self-care (01) ==
LOC: MW.ED 15:18
DX: K52.9 Noninfective gastroenteritis and colitis, unspecified (principal); N39.0 Urinary tract infection, site not specified; J11.1 Influenza due to unidentified influenza virus with other respiratory manifestations; I10 Essential (primary) hypertension; Z88.0 Allergy status to penicillin
CPT/HCPCS: 36415; 80053; 81001; 85025; 87804; 96361; 96374; 96375; 99284; J1885; J2405; J7030

== ENCOUNTER 2020-04-05 09:52 | Emergency (ER) | payer SELFPAY ==
--- NOTE | 2020-04-05 10:18 | EDM.PDOC ---
ED HPI GENERAL MEDICAL PROBLEM - General Chief Complaint: Lower Extremity Injury/Pain Stated Complaint: DBT Time Seen by Provider: 04/05/20 09:59 Source of Information: Reports: Patient History Limitations: Reports: No Limitations - History of Present Illness INITIAL COMMENTS - FREE TEXT/NARRATIVE: HISTORY AND PHYSICAL: History of present illness: Patient is a 44-year-old female who presents to the emergency room with complaints of right ankle pain, swelling and some calf tenderness. She reports she does have history of DVT and is concerned she may have a blood clot. She denies any injury, trauma or falls and is not concerned of any hairline fracture or bone trauma. She denies any numbness, tingling or saddle paresthesias. She is fully ambulatory without any difficulty or deficits. She does wear knee-high CARLOS hose stockings but does not take any form of blood thinner. Patient denies any fever, chills, headache, change in vision, syncope or near syncope. Denies any chest pain, back pain, shortness of breath or cough. Denies any GI or symptoms. Patient has been eating and drinking appropriately. Review of systems: As per history of present illness and below otherwise all systems reviewed and negative. Past medical history: As per history of present illness and as reviewed below otherwise noncontributory. Surgical history: As per history of present illness and as reviewed below otherwise noncontributory. Social history: See social history for further information Family history: As per history of present illness and as reviewed below otherwise noncontributory. Physical exam: General: Well developed and well nourished 44 year old female. A & O x 3. Nontoxic appearing and in no acute distress. HEENT: Atraumatic, normocephalic, pupils equal and reactive bilaterally, negative for conjunctival pallor or scleral icterus, mucous membranes moist, TMs normal bilaterally, throat clear, neck supple, nontender, trachea midline. No drooling or trismus noted. No meningeal signs. No hot potato voice noted. Lungs: Clear to auscultation, breath sounds equal bilaterally, chest nontender. Heart: S1S2, regular rate and rhythm without overt murmur Abdomen: Soft, nondistended, nontender. Negative for masses or hepatosplenomegaly. Negative for costovertebral tenderness. Skin: Intact, warm, dry. No lesions or rashes noted. Extremities: Atraumatic, moves all extremities per self without difficulty or deficits, strong pedal pulses bilaterally. +1 pitting edema to right lateral ankle. Mild right sided calf tenderness without redness or localized area of redness. Neurovascular unremarkable. Neuro: Awake, alert, oriented. Cranial nerves II through XII unremarkable. Cerebellum unremarkable. Motor and sensory unremarkable throughout. Exam nonfocal. Notes: Sluggish blood flow presumably due to chronic valvular disease. No evidence of DVT. We did discuss further diagnostics such as x-ray and lab, she would like to follow-up with Dr. Odom, her primary care provider. We discussed signs and symptoms that would prompt her to return to the emergency room. Supportive care measures were reviewed and discussed. Voices understanding and is agreeable to plan of care. Denies any further questions or concerns at this time. Diagnostics: Venous U/S of right lower ext. Therapeutics: None Prescription: None Impression: Ankle swelling, right Plan: 1. Your ultrasound today showed no evidence of DTV (blood clot). I would like you to follow up with Dr Odom as we discussed for re-evaluation and further management. 2. Rest, ice, elevate the extremity as able. You can alternate Tylenol and/or ibuprofen as needed. Continue to wear your CARLOS hose stockings. 3. Return to the emergency department as needed and as discussed. Definitive disposition and diagnosis as appropriate pending reevaluation and review of above. Right Ankle Pain Score (Numeric/FACES): 5 - Related Data Allergies Allergy/AdvReac Type Severity Reaction Status Date / Time Penicillins Allergy Vomiting Verified 04/05/20 10:20 Home Meds: Home Meds Promethazine [Phenergan] 10 mg PO ASDIRECTED 03/13/19 [History] Ondansetron [Zofran ODT] 4 mg PO Q6H PRN #10 tab.dis 10/27/19 [Rx] Past Medical History HEENT History: Reports: Impaired Vision, Other (See Below) Other HEENT History: wears glasses Cardiovascular History: Reports: Hypertension Respiratory History: Reports: PE Gastrointestinal History: Reports: None Genitourinary History: Reports: UTI, Recurrent Other Genitourinary History: anorexia 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 Musculoskeletal History: Reports: None Neurological History: Reports: None Psychiatric History: Reports: Anxiety Endocrine/Metabolic History: Reports: None Hematologic History: Reports: Other (See Below) Other Hematologic History: sepsis Immunologic History: Reports: None Oncologic (Cancer) History: Reports: None Dermatologic History: Reports: None, Other (See Below) Other Dermatologic History: DVT - Infectious Disease History Infectious Disease History: Reports: Chicken Pox, Other (See Below) Other Infectious Disease History: sepsis - Past Surgical History Head Surgeries/Procedures: Reports: None HEENT Surgical History: Reports: None Cardiovascular Surgical History: Reports: None Respiratory Surgical History: Reports: None GI Surgical History: Reports: None Female Surgical History: Reports: None Endocrine Surgical History: Reports: None Neurological Surgical History: Reports: None Musculoskeletal Surgical History: Reports: None Oncologic Surgical History: Reports: None Dermatological Surgical History: Reports: None Social & Family History - Family History Family Medical History: Noncontributory - Caffeine Use Caffeine Use: Reports: Coffee Review of Systems - Review of Systems Review Of Systems: Comprehensive ROS is negative, except as noted in HPI. ED EXAM, GENERAL - Physical Exam Exam: See Below (See dictation) Course - Vital Signs Last Recorded V/S: Last Vital Signs Temp 97.0 F 04/05/20 10:21 Pulse 64 04/05/20 10:21 Resp 15 04/05/20 10:21 BP 107/69 04/05/20 10:21 Pulse Ox 97 04/05/20 10:21 Departure - Departure Time of Disposition: 11:11 Disposition: Home, Self-Care 01 Clinical Impression: Right ankle swelling - Discharge Information Referrals: Eben Odom DO [Primary Care Provider] - Forms: ED Department Discharge Additional Instructions: The following information is given to patients seen in the emergency department who are being discharged to home. This information is to outline your options for follow-up care. We provide all patients seen in our emergency department with a follow-up referral. The need for follow-up, as well as the timing and circumstances, are variable depending upon the specifics of your emergency department visit. If you don't have a primary care physician on staff, we will provide you with a referral. We always advise you to contact your personal physician following an emergency department visit to inform them of the circumstance of the visit and for follow-up with them and/or the need for any referrals to a consulting specialist. The emergency department will also refer you to a specialist when appropriate. This referral assures that you have the opportunity for follow-up care with a specialist. All of these measure are taken in an effort to provide you with optimal care, which includes your follow-up. Under all circumstances we always encourage you to contact your private physician who remains a resource for coordinating your care. When calling for follow-up care, please make the office aware that this follow-up is from your recent emergency room visit. If for any reason you are refused follow-up, please contact the [facility] Emergency Department at and asked to speak to the emergency department charge nurse. [facility] [address] [place] [address] [facility] [address] [place] [id number] 1. Your ultrasound today showed no evidence of DTV (blood clot). I would like you to follow up with Dr Odom as we discussed for re-evaluation and further management. 2. Rest, ice, elevate the extremity as able. You can alternate Tylenol and/or ibuprofen as needed. Continue to wear your CARLOS hose stockings. 3. Return to the emergency department as needed and as discussed. Sepsis Event Note - Focused Exam Vital Signs: Vital Signs Temp Pulse Resp BP Pulse Ox 04/05/20 10:21 97.0 F 64 15 107/69 97 Date Exam was Performed: 04/05/20 Time Exam was Performed: 11:10
--- NOTE | 2020-04-05 11:01 | US ---
Right lower extremity deep venous ultrasound: Duplex and color Doppler evaluation was obtained of the right common femoral, superficial femoral, popliteal, anterior tibial and posterior tibial veins. Findings: Previous right lower extremity deep venous ultrasound of 03/13/19. Blood flow is sluggish presumably due to chronic valvular disease. Normal compression and Doppler blood flow is seen. Impression: 1. Sluggish blood flow most likely due to chronic valvular disease. 2. No findings of acute deep venous thrombosis within the right lower extremity. Diagnostic code #2 This report was dictated in MDT
== END 2020-04-05 11:22 | disposition home or self-care (01) ==
LOC: MW.ED 09:52
DX: M79.89 Other specified soft tissue disorders (principal); I10 Essential (primary) hypertension; Z86.73 Personal history of transient ischemic attack (TIA), and cerebral infarction without residual deficits; Z88.0 Allergy status to penicillin
CPT/HCPCS: 93971-26-RT; 93971-RT; 99282; 99283-25

== ENCOUNTER 2020-08-05 08:13 | Emergency (ER) | payer OTHER ==
[2020-08-05] MEDS ORDERED: Lactated Ringers 1,000 ML IV ONE (08:16)
[2020-08-05] MEDS ORDERED: Sodium Chloride 0.9% 10 ML Syringe FLUSH PRN (08:16)
[2020-08-05] MEDS ORDERED: Sodium Chloride 0.9% 2.5 ML Syringe FLUSH PRN (08:16)
--- NOTE | 2020-08-05 08:20 | EDM.PDOC ---
ED HPI GENERAL MEDICAL PROBLEM - General Stated Complaint: DIZZINESS Time Seen by Provider: 08/05/20 08:16 Source of Information: Reports: Patient, EMS History Limitations: Reports: No Limitations - History of Present Illness INITIAL COMMENTS - FREE TEXT/NARRATIVE: 45F PMHx anorexia presents for "not feeling well" for last week worsening over last couple of days. Patient notes generalized weakness, nausea, decreased PO, decreased urination. Denies fevers, cough, SOB, chest pain, abdominal pain, dysuria, hematuria. No known sick exposures. Has been staying at home and feels very weak. Notes that her extremities feel numb and she's had her hands cramp so badly she has difficulty moving them. general Pain Score (Numeric/FACES): 3 - Related Data Allergies Allergy/AdvReac Type Severity Reaction Status Date / Time Penicillins Allergy Vomiting Verified 08/05/20 08:25 Home Meds: Home Meds Promethazine [Phenergan] 10 mg PO ASDIRECTED 03/13/19 [History] Ondansetron [Zofran ODT] 4 mg PO Q6H PRN #10 tab.dis 10/27/19 [Rx] Ondansetron [Zofran ODT] 4 mg PO Q6H PRN #12 tab.dis 08/05/20 [Rx] Sulfamethoxazole/Trimethoprim [Bactrim Ds Tablet] 1 each PO BID 7 Days #14 tablet 08/05/20 [Rx] Past Medical History HEENT History: Reports: Impaired Vision, Other (See Below) Other HEENT History: wears glasses Cardiovascular History: Reports: Hypertension Respiratory History: Reports: PE Gastrointestinal History: Reports: None Genitourinary History: Reports: UTI, Recurrent Other Genitourinary History: anorexia 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 Musculoskeletal History: Reports: None Neurological History: Reports: None Psychiatric History: Reports: Anxiety Endocrine/Metabolic History: Reports: None Hematologic History: Reports: Other (See Below) Other Hematologic History: sepsis Immunologic History: Reports: None Oncologic (Cancer) History: Reports: None Dermatologic History: Reports: None, Other (See Below) Other Dermatologic History: DVT - Infectious Disease History Infectious Disease History: Reports: Chicken Pox, Other (See Below) Other Infectious Disease History: sepsis - Past Surgical History Head Surgeries/Procedures: Reports: None HEENT Surgical History: Reports: None Cardiovascular Surgical History: Reports: None Respiratory Surgical History: Reports: None GI Surgical History: Reports: None Female Surgical History: Reports: None Endocrine Surgical History: Reports: None Neurological Surgical History: Reports: None Musculoskeletal Surgical History: Reports: None Oncologic Surgical History: Reports: None Dermatological Surgical History: Reports: None Social & Family History - Family History Family Medical History: Noncontributory - Caffeine Use Caffeine Use: Reports: Coffee ED ROS GENERAL - Review of Systems Review Of Systems: Comprehensive ROS is negative, except as noted in HPI. ED EXAM, GENERAL - Physical Exam Exam: See Below Exam Limited By: No Limitations General Appearance: Alert, WD/WN, Anxious Ears: Normal External Exam Nose: Normal Inspection Throat/Mouth: Normal Inspection, Normal Oropharynx, Normal Voice Head: Atraumatic, Normocephalic Neck: Normal Inspection Respiratory/Chest: No Respiratory Distress, Lungs Clear, Normal Breath Sounds, No Accessory Muscle Use Cardiovascular: Normal Peripheral Pulses, Regular Rate, Rhythm, No Edema GI/Abdominal: Soft, Non-Tender Extremities: Normal Inspection Neurological: Alert Psychiatric: Normal Affect, Anxious Skin Exam: Warm, Dry, Intact, Normal Color EKG INTERPRETATION EKG Date: 08/05/20 Time: 08:25 Rhythm: NSR Rate (Beats/Min): 66 [place]: Normal P-Wave: Present QRS: Normal ST-T: Normal QT: Normal ND/PQ Interval: 66 Comparison: Other: (diffuse T-wave flattening not seen on prior EKG from 2019) Course - Vital Signs Last Recorded V/S: Last Vital Signs Temp 96.9 F 08/05/20 08:24 Pulse 71 08/05/20 11:16 Resp 23 H 08/05/20 11:16 BP 151/57 H 08/05/20 11:16 Pulse Ox 92 L 08/05/20 11:16 - Orders/Labs/Meds Orders: Active Orders 24 hr Category Date Time Status Cardiac Monitoring [RC] . DIRECTED Care 08/05/20 08:16 Active EKG Documentation Completion [RC] STAT Care 08/05/20 08:16 Active Pulse Oximetry [RC] ASDIRECTED Care 08/05/20 08:16 Active Sodium Chloride 0.9% [Saline Flush] Med 08/05/20 08:16 Active 10 ml FLUSH ASDIRECTED PRN Sodium Chloride 0.9% [Saline Flush] Med 08/05/20 08:16 Active 2.5 ml FLUSH ASDIRECTED PRN Saline Lock Insert [OM.PC] Stat Oth 08/05/20 08:16 Ordered Medication Orders Sodium Chloride (Saline Flush) 10 ml FLUSH ASDIRECTED PRN PRN Reason: Keep Vein Open Last Admin: 08/05/20 08:57 Dose: 10 ml Documented by: SANDRITA Sodium Chloride (Saline Flush) 2.5 ml FLUSH ASDIRECTED PRN PRN Reason: Keep Vein Open Last Admin: 08/05/20 08:58 Dose: 2.5 ml Documented by: [email or web address] Labs: Laboratory Tests 08/05/20 08/05/20 08/05/20 Range/Units 08:33 08:33 08:33 WBC 10.92 (4.0-11.0) K/uL RBC 3.69 L (4.30-5.90) M/uL Hgb 14.1 (12.0-16.0) g/dL Hct 40.9 (36.0-46.0) % MCV 110.8 H (80.0-98.0) fL MCH 38.2 H (27.0-32.0) pg MCHC 34.5 (31.0-37.0) g/dL RDW Std Deviation 60.6 (28.0-62.0) fl RDW Coeff of S[place] 15 (11.0-15.0) % Plt Count 349 (150-400) K/uL MPV 9.20 (7.40-12.00) fL Neut % (Auto) 71.1 (48.0-80.0) % Lymph % (Auto) 18.9 (16.0-40.0) % [place] % (Auto) 8.9 (0.0-15.0) % Eos % (Auto) 0.9 (0.0-7.0) % Baso % (Auto) 0.2 (0.0-1.5) % Neut # (Auto) 7.8 H (1.4-5.7) K/uL Lymph # (Auto) 2.1 (0.6-2.4) K/uL [place] # (Auto) 1.0 H (0.0-0.8) K/uL Eos # (Auto) 0.1 (0.0-0.7) K/uL Baso # (Auto) 0.0 (0.0-0.1) K/uL Nucleated RBC % 0.0 /100WBC Nucleated RBCs # 0 K/uL Lactate 4.1 H* (0.20-2.00) mmol/L Sodium 142 (136-145) mmol/L Potassium 3.0 L (3.5-5.1) mmol/L Chloride 103 (98-107) mmol/L Carbon Dioxide 22.7 (21.0-32.0) mmol/L BUN 4 L (7.0-18.0) mg/dL Creatinine 0.7 (0.6-1.0) mg/dL Est Cr Clr Drug Dosing 93.48 mL/min Estimated GFR (MDRD) > 60.0 ml/min Glucose 72 L (74-106) mg/dL Calcium 7.8 L (8.5-10.1) mg/dL Magnesium 1.2 L (1.8-2.4) mg/dL Total Bilirubin 0.5 (0.2-1.0) mg/dL AST 109 H (15-37) IU/L ALT 83 H (14-63) IU/L Alkaline Phosphatase 160 H (46-116) U/L Troponin I < 0.050 (0.000-0.056) ng/mL Total Protein 6.4 (6.4-8.2) g/dL Albumin 3.2 L (3.4-5.0) g/dL Globulin 3.2 (2.6-4.0) g/dL Albumin/Globulin Ratio 1.0 (0.9-1.6) Urine Color Urine Appearance Urine pH (5.0-8.0) Ur Specific [place] (1.001-1.035) Urine Protein (NEGATIVE) mg/dL Urine Glucose (UA) (NEGATIVE) mg/dL Urine Ketones (NEGATIVE) mg/dL Urine Occult Blood (NEGATIVE) Urine Nitrite (NEGATIVE) Urine Bilirubin (NEGATIVE) Urine Urobilinogen (<2.0) EU/dL Ur Leukocyte Esterase (NEGATIVE) Urine RBC (0-2/HPF) Urine WBC (0-5/HPF) Ur Epithelial Cells (NONE-FEW) Urine Bacteria (NEGATIVE) SARS-CoV-2 RNA (SD) (NEGATIVE) 08/05/20 08/05/2020 Range/Units 08:45 12:06 13:10 WBC (4.0-11.0) K/uL RBC (4.30-5.90) M/uL Hgb (12.0-16.0) g/dL Hct (36.0-46.0) % MCV (80.0-98.0) fL MCH (27.0-32.0) pg MCHC (31.0-37.0) g/dL RDW Std Deviation (28.0-62.0) fl RDW Coeff of S[place] (11.0-15.0) % Plt Count (150-400) K/uL MPV (7.40-12.00) fL Neut % (Auto) (48.0-80.0) % Lymph % (Auto) (16.0-40.0) % [place] % (Auto) (0.0-15.0) % Eos % (Auto) (0.0-7.0) % Baso % (Auto) (0.0-1.5) % Neut # (Auto) (1.4-5.7) K/uL Lymph # (Auto) (0.6-2.4) K/uL [place] # (Auto) (0.0-0.8) K/uL Eos # (Auto) (0.0-0.7) K/uL Baso # (Auto) (0.0-0.1) K/uL Nucleated RBC % /100WBC Nucleated RBCs # K/uL Lactate 1.3 (0.20-2.00) mmol/L Sodium (136-145) mmol/L Potassium (3.5-5.1) mmol/L Chloride (98-107) mmol/L Carbon Dioxide (21.0-32.0) mmol/L BUN (7.0-18.0) mg/dL Creatinine (0.6-1.0) mg/dL Est Cr Clr Drug Dosing mL/min Estimated GFR (MDRD) ml/min Glucose (74-106) mg/dL Calcium (8.5-10.1) mg/dL Magnesium (1.8-2.4) mg/dL Total Bilirubin (0.2-1.0) mg/dL AST (15-37) IU/L ALT (14-63) IU/L Alkaline Phosphatase (46-116) U/L Troponin I (0.000-0.056) ng/mL Total Protein (6.4-8.2) g/dL Albumin (3.4-5.0) g/dL Globulin (2.6-4.0) g/dL Albumin/Globulin Ratio (0.9-1.6) Urine Color YELLOW Urine Appearance SLT CLOUDY Urine pH 7.0 (5.0-8.0) Ur Specific [place] 1.020 (1.001-1.035) Urine Protein NEGATIVE (NEGATIVE) mg/dL Urine Glucose (UA) NEGATIVE (NEGATIVE) mg/dL Urine Ketones 15 H (NEGATIVE) mg/dL Urine Occult Blood SMALL H (NEGATIVE) Urine Nitrite POSITIVE H (NEGATIVE) Urine Bilirubin NEGATIVE (NEGATIVE) Urine Urobilinogen 0.2 (<2.0) EU/dL Ur Leukocyte Esterase SMALL H (NEGATIVE) Urine RBC 0-4 (0-2/HPF) Urine WBC 3-6 (0-5/HPF) Ur Epithelial Cells FEW (NONE-FEW) Urine Bacteria 3+ H (NEGATIVE) SARS-CoV-2 RNA (SD) NEGATIVE (NEGATIVE) Meds: Medications Generic Name Dose Route Start Last Admin Trade Name Alejandro PRN Reason Stop Dose Admin Sodium Chloride 10 ml 08/05/20 08:16 08/05/20 08:57 Saline Flush FLUSH 10 ml ASDIRECTED PRN Administration Keep Vein Open Sodium Chloride 2.5 ml 08/05/20 08:16 08/05/20 08:58 Saline Flush FLUSH 2.5 ml ASDIRECTED PRN Administration Keep Vein Open Discontinued Medications Generic Name Dose Route Start Last Admin Trade Name Alejandro PRN Reason Stop Dose Admin Lactated Ringer's 1,000 mls @ 999 mls/hr 08/05/20 08:16 08/05/20 08:58 Ringers, Lactated IV 08/05/20 09:16 999 mls/hr .BOLUS ONE Administration Magnesium Sulfate 2 gm/ Premix 50 mls @ 50 mls/hr 08/05/20 09:57 08/05/20 10:34 IV 08/05/20 10:56 50 mls/hr ONETIME ONE Administration Sodium Chloride 1,000 mls @ 999 mls/hr 08/05/20 10:26 08/05/20 10:34 Normal Saline IV 10/04/20 11:26 999 mls/hr .Bolus ONE Administration Ceftriaxone Sodium/Dextrose 1 50 mls @ 100 mls/hr 08/05/20 12:53 gm/ Premix IV 08/05/20 13:22 ONETIME ONE Labetalol HCl 20 mg 08/05/20 08:47 08/05/20 08:59 Normodyne IVPUSH 08/05/20 08:48 Not Given ONETIME ONE Protocol Ondansetron HCl 4 mg 08/05/20 09:17 08/05/20 10:34 Zofran IVPUSH 08/05/20 09:18 4 mg ONETIME ONE Administration Potassium Chloride 40 meq 08/05/20 09:17 08/05/20 10:34 Potassium Chloride PO 08/05/20 09:18 40 meq ONETIME ONE Administration - Re-Assessments/Exams Free Text/Narrative Re-Assessment/Exam: 08/05/20 08:20 Patient with non-specific symptoms. Does appear anxious/uncomfortable. Will get broad labs to look for source of infection, electrolyte abnormality, COVID. Will give IVFB while working up. Will f/u results and disposition accordingly. 08/05/20 09:00 Patient was noted to be very hypertensive to 200s/170s on arrival, but repeat check without any intervention 140s/90s suggesting either very labile BP or inaccurate initial reading. Chart searching, patient does have history of labile BP with several normal-low readings and several readings >170s systolic. Will defer antihypertensive treatment at this time. 08/05/20 13:00 Patient feels "100%" better after 2-L IVFB. Labs were remarkable for markedly elevated lactate, hypokalemia, and hypomangesemia. Electrolytes were repleted. UA remarkable for UTI. Will give rocephin 1-gm in ED. Spoke with patient regarding admission vs d/c home. She would prefer to go home. I think this is reasonable as long as lactate is downtrending after 2nd bolus. She is also very health literate and understands return precautions to come back to ED if things aren't improving at home. 08/05/20 13:23 Repeat lactate 1.3; will d/c home with PO antibiotics, zofran for symptomatic relief of nausea, and encouragement to PO hydrate. Departure - Departure Time of Disposition: 13:23 Disposition: Home, Self-Care 01 Condition: Good Clinical Impression: Dehydration, Hypokalemia UTI (urinary tract infection) Qualifiers: Urinary tract infection type: acute cystitis Hematuria presence: without hematuria Qualified Code(s): N30.00 - Acute cystitis without hematuria - Discharge Information Prescriptions: Sulfamethoxazole/Trimethoprim [Bactrim Ds Tablet] 1 each PO BID 7 Days #14 tablet Referrals: Hunter Carreon [Primary Care Provider] - Additional Instructions: The following information is given to patients seen in the emergency department who are being discharged to home. This information is to outline your options for follow-up care. We provide all patients seen in our emergency department with a follow-up referral. The need for follow-up, as well as the timing and circumstances, are variable d epending upon the specifics of your emergency department visit. If you don't have a primary care physician on staff, we will provide you with a referral. We always advise you to contact your personal physician following an emergency department visit to inform them of the circumstance of the visit and for follow-up with them and/or the need for any referrals to a consulting specialist. The emergency department will also refer you to a specialist when appropriate. This referral assures that you have the opportunity for follow-up care with a specialist. All of these measure are taken in an effort to provide you with optimal care, which includes your follow-up. Under all circumstances we always encourage you to contact your private physician who remains a resource for coordinating your care. When calling for follow-up care, please make the office aware that this follow-up is from your recent emergency room visit. If for any reason you are refused follow-up, please contact the [facility] Emergency Department at and asked to speak to the emergency department charge nurse. Please follow up with your primary care physician. If you do not have a primary care physician, see below: [facility] [address] [place] [id number] [facility] [address] [place] [address] Sepsis Event Note (ED) - Focused Exam Vital Signs: Vital Signs Temp Pulse Resp BP Pulse Ox 08/05/20 11:16 71 23 H 151/57 H 92 L 08/05/20 10:16 65 18 152/82 H 96 08/05/20 08:59 66 18 148/88 H 96 08/05/20 08:24 96.9 F 78 16 202/178 H 96 - My Orders Last 24 Hours: My Active Orders 08/05/20 08:16 Cardiac Monitoring [RC] . DIRECTED EKG Documentation Completion [RC] STAT Pulse Oximetry [RC] ASDIRECTED Sodium Chloride 0.9% [Saline Flush] 10 ml FLUSH ASDIRECTED PRN Sodium Chloride 0.9% [Saline Flush] 2.5 ml FLUSH ASDIRECTED PRN Saline Lock Insert [OM.PC] Stat - Assessment/Plan Last 24 Hours: My Active Orders 08/05/20 08:16 Cardiac Monitoring [RC] . DIRECTED EKG Documentation Completion [RC] STAT Pulse Oximetry [RC] ASDIRECTED Sodium Chloride 0.9% [Saline Flush] 10 ml FLUSH ASDIRECTED PRN Sodium Chloride 0.9% [Saline Flush] 2.5 ml FLUSH ASDIRECTED PRN Saline Lock Insert [OM.PC] Stat
[2020-08-05] MEDS ORDERED: Labetalol 100 MG/20 ML MDV IVPUSH ONE (08:47)
[2020-08-05 09:08] LABS: BLOOD UREA NITROGEN,BUN 4 mg/dL (7.0-18.0); CARBON DIOXIDE,CO2 22.7 mmol/L (21.0-32.0); CHLORIDE,CL 103 mmol/L (98-107); GLUCOSE RANDOM 72 mg/dL (74-106); SODIUM,NA 142 mmol/L (136-145)
--- NOTE | 2020-08-05 09:15 | CR ---
INDICATION: Shortness of breath. TECHNIQUE: Chest 1 view. COMPARISON: 11/16/2018. FINDINGS: Cardiovascular and mediastinum: Heart size and vasculature are normal in caliber and appearance. Mediastinum is within normal limits. Lungs and pleural space: Lungs are clear. No sign of infiltrate or mass. No sign of pleural effusion. No pneumothorax. Bones and soft tissues: No significant findings. IMPRESSION: Lungs are clear. Dictated by Marek Ricardo MD @ Aug 05 2020 9:13AM Signed by Dr. Marek Ricardo @ Aug 05 2020 9:14AM
[2020-08-05] MEDS ORDERED: Ondansetron 4 MG/2 ML SDV IVPUSH ONE ×2 (09:17→13:26)
[2020-08-05] MEDS ORDERED: Potassium Chloride 10% 20 MEQ/15 ML Soln 30 ML UD Cup PO ONE (09:17)
[2020-08-05] MEDS ORDERED: Magnesium Sulfate/Water 2 GM in Premix Bag 1 BAG IV ONE (09:57)
[2020-08-05] MEDS ORDERED: Sodium Chloride 0.9% 1,000 ML IV ONE (10:26)
[2020-08-05] MEDS ORDERED: cefTRIAXone 1 GM in Premix Bag 1 BAG IV ONE (12:53)
== END 2020-08-05 14:12 | disposition home or self-care (01) ==
LOC: MW.ED 08:13
DX: E86.0 Dehydration (principal); E87.6 Hypokalemia; N30.00 Acute cystitis without hematuria; I10 Essential (primary) hypertension; Z88.0 Allergy status to penicillin; Z20.828 Contact with and (suspected) exposure to other viral communicable diseases
CPT/HCPCS: 36415; 71045; 80053; 81001; 83605; 83735; 84484; 85025; 87635; 93005; 96361; 96365; 96367; 96375; 96376; 99285; A9270; J0696; J2405; J3475; J7030; J7120; 93010; 99284; J3490; U0002

== ENCOUNTER 2020-08-09 16:33 | Inpatient (IN) | payer OTHER ==
[2020-08-09] MEDS ORDERED: cefTRIAXone 1 GM in Premix Bag 1 BAG IV ONE (16:58)
[2020-08-09] MEDS ORDERED: Sodium Chloride 0.9% 10 ML Syringe FLUSH PRN (16:58)
[2020-08-09] MEDS ORDERED: Sodium Chloride 0.9% 1,000 ML IV ONE (16:58)
[2020-08-09] MEDS ORDERED: Sodium Chloride 0.9% 2.5 ML Syringe FLUSH PRN (16:58)
[2020-08-09] MEDS ORDERED: Ondansetron 4 MG/2 ML SDV IVPUSH ONE (17:15)
--- NOTE | 2020-08-09 18:08 | EDM.PDOC ---
ED HPI GENERAL MEDICAL PROBLEM - General Chief Complaint: General Stated Complaint: SICK Time Seen by Provider: 08/09/20 16:43 - History of Present Illness INITIAL COMMENTS - FREE TEXT/NARRATIVE: History of present illness: Patient presents with bilateral flank pain described as aching she was here 3 days ago diagnosed with urinary tract infection was given Bactrim and discharged. She apparently was in the emergency department for a while with an elevated lactic acid of 4.4 she was given fluids and discharged home once it normalized. She states she is feeling weaker and still having achy flank pain. She has been taking the Bactrim as directed but does not feel any better she says she feels like her body is shutting down and that she is septic. She says she has had urosepsis in the past. Patient denies any fever chills she does not have any cough or trouble breathing no abdominal pain she has been nauseous but no vomiting Review of systems: As per history of present illness and below otherwise all systems reviewed and negative. Past medical history: As per history of present illness and as reviewed below otherwise noncontributory. Surgical history: As per history of present illness and as reviewed below otherwise noncontributory. Social history: No reported history of drug or alcohol abuse. Family history: As per history of present illness and as reviewed below otherwise noncontributory. Physical exam: HEENT: Atraumatic, normocephalic, pupils reactive, negative for conjunctival pallor or scleral icterus, mucous membranes moist, throat clear, neck supple, nontender, trachea midline. Lungs: Clear to auscultation, breath sounds equal bilaterally, chest nontender. Heart: S1S2, regular, negative for clicks, rubs, or JVD. Abdomen: Soft, nondistended, nontender. Negative for masses or hepatos plenomegaly. Negative for costovertebral tenderness. Pelvis: Stable nontender. Genitourinary: Deferred. Some bilateral CVA tenderness. Rectal: Deferred. Extremities: Atraumatic, negative for cords or calf pain. Neurovascular unremarkable. Neuro: Awake, alert, oriented. Cranial nerves II through XII unremarkable. Cerebellum unremarkable. Motor and sensory unremarkable throughout. Exam nonfocal. Diagnostics: [] Therapeutics: [] Impression: Pyelonephritis [] Plan: Fluids labs IV antibiotics admit [] Definitive disposition and diagnosis as appropriate pending reevaluation and review of above. - Related Data Allergies Allergy/AdvReac Type Severity Reaction Status Date / Time Penicillins Allergy Vomiting Verified 08/09/20 16:43 Home Meds: Home Meds Promethazine [Phenergan] 10 mg PO ASDIRECTED 03/13/19 [History] Ondansetron [Zofran ODT] 4 mg PO Q6H PRN #12 tab.dis 08/05/20 [Rx] Sulfamethoxazole/Trimethoprim [Bactrim Ds Tablet] 1 each PO BID 7 Days #14 tablet 08/05/20 [Rx] Past Medical History HEENT History: Reports: Impaired Vision, Other (See Below) Other HEENT History: wears glasses Cardiovascular History: Reports: Blood Clots/VTE/DVT, Hypertension Other Cardiovascular History: PE, Seepsis Respiratory History: Reports: PE Gastrointestinal History: Reports: None Genitourinary History: Reports: UTI, Recurrent Other Genitourinary History: anorexia [employer] History: Reports: None Musculoskeletal History: Reports: None Neurological History: Reports: None Psychiatric History: Reports: Anxiety Endocrine/Metabolic History: Reports: None Hematologic History: Reports: Other (See Below) Other Hematologic History: sepsis Immunologic History: Reports: None Oncologic (Cancer) History: Reports: None Dermatologic History: Reports: None, Other (See Below) Other Dermatologic History: DVT - Infectious Disease History Infectious Disease History: Reports: Chicken Pox, Measles Other Infectious Disease History: sepsis - Past Surgical History Head Surgeries/Procedures: Reports: None HEENT Surgical History: Reports: None Cardiovascular Surgical History: Reports: None Respiratory Surgical History: Reports: None GI Surgical History: Reports: None Female Surgical History: Reports: None Endocrine Surgical History: Reports: None Neurological Surgical History: Reports: None Musculoskeletal Surgical History: Reports: None Oncologic Surgical History: Reports: None Dermatological Surgical History: Reports: None Social & Family History - Family History Family Medical History: Noncontributory - Tobacco Use Smoking Status *Q: Current Every Day Smoker Years of Tobacco use: 20 Packs/Tins Daily: 1 - Caffeine Use Caffeine Use: Reports: Coffee - Recreational Drug Use Recreational Drug Use: No ED ROS GENERAL - Review of Systems Review Of Systems: See Below ED EXAM, GENERAL - Physical Exam Exam: See Below Course - Vital Signs Text/Narrative:: Patient is feeling better after antibiotics and fluids however she again has an elevated lactic acid. Her urine looks improved but I think she needs to be admitted for pyelonephritis. Her previous ED stay she had a lactic of 4.4 that cleared but it has recurred so I think it is best to keep her inpatient with IV antibiotics. At 6:20 PM I discussed case with Dr. Garcia who will admit the patient inpatient for pyelonephritis. Last Recorded V/S: Last Vital Signs Temp 37.0 C 08/09/20 16:40 Pulse 86 08/09/20 16:40 Resp 20 08/09/20 16:40 BP 157/93 H 08/09/20 16:40 Pulse Ox 95 08/09/20 16:40 - Orders/Labs/Meds Orders: Active Orders 24 hr Category Date Time Status CORONAVIRUS COVID-19 PCR PHL Stat Lab 08/09/20 18:08 Ordered Sodium Chloride 0.9% [Saline Flush] Med 08/09/20 16:58 Active 10 ml FLUSH ASDIRECTED PRN Sodium Chloride 0.9% [Saline Flush] Med 08/09/20 16:58 Active 2.5 ml FLUSH ASDIRECTED PRN Saline Lock Insert [OM.PC] Stat Oth 08/09/20 16:58 Ordered Medication Orders Sodium Chloride (Saline Flush) 10 ml FLUSH ASDIRECTED PRN PRN Reason: Keep Vein Open Last Admin: 08/09/20 17:28 Dose: 10 ml Documented by: KAUSHIK Sodium Chloride (Saline Flush) 2.5 ml FLUSH ASDIRECTED PRN PRN Reason: Keep Vein Open Last Admin: 08/09/20 17:28 Dose: 2.5 ml Documented by: KAUSHIK Labs: Laboratory Tests 08/09/20 08/09/20 08/09/20 Range/Units 17:19 17:19 17:19 WBC 10.00 (4.0-11.0) K/uL RBC 3.73 L (4.30-5.90) M/uL Hgb 14.2 (12.0-16.0) g/dL Hct 41.2 (36.0-46.0) % MCV 110.5 H (80.0-98.0) fL MCH 38.1 H (27.0-32.0) pg MCHC 34.5 (31.0-37.0) g/dL RDW Std Deviation 59.4 (28.0-62.0) fl RDW Coeff of Sobia 15 (11.0-15.0) % Plt Count 295 (150-400) K/uL MPV 9.50 (7.40-12.00) fL Neut % (Auto) 63.8 (48.0-80.0) % Lymph % (Auto) 25.3 (16.0-40.0) % Barton % (Auto) 9.0 (0.0-15.0) % Eos % (Auto) 1.7 (0.0-7.0) % Baso % (Auto) 0.2 (0.0-1.5) % Neut # (Auto) 6.4 H (1.4-5.7) K/uL Lymph # (Auto) 2.5 H (0.6-2.4) K/uL Barton # (Auto) 0.9 H (0.0-0.8) K/uL Eos # (Auto) 0.2 (0.0-0.7) K/uL Baso # (Auto) 0.0 (0.0-0.1) K/uL Nucleated RBC % 0.0 /100WBC Nucleated RBCs # 0 K/uL Lactate 2.2 H* (0.20-2.00) mmol/L Sodium 141 (136-145) mmol/L Potassium 3.2 L (3.5-5.1) mmol/L Chloride 104 (98-107) mmol/L Carbon Dioxide 23.5 (21.0-32.0) mmol/L BUN 4 L (7.0-18.0) mg/dL Creatinine 0.5 L (0.6-1.0) mg/dL Est Cr Clr Drug Dosing 130.87 mL/min Estimated GFR (MDRD) > 60.0 ml/min Glucose 87 (74-106) mg/dL Calcium 8.2 L (8.5-10.1) mg/dL Total Bilirubin 0.4 (0.2-1.0) mg/dL AST 152 H (15-37) IU/L ALT 91 H (14-63) IU/L Alkaline Phosphatase 149 H (46-116) U/L Total Protein 6.3 L (6.4-8.2) g/dL Albumin 3.0 L (3.4-5.0) g/dL Globulin 3.3 (2.6-4.0) g/dL Albumin/Globulin Ratio 0.9 (0.9-1.6) Urine Color Urine Appearance Urine pH (5.0-8.0) Ur Specific Archbold (1.001-1.035) Urine Protein (NEGATIVE) mg/dL Urine Glucose (UA) (NEGATIVE) mg/dL Urine Ketones (NEGATIVE) mg/dL Urine Occult Blood (NEGATIVE) Urine Nitrite (NEGATIVE) Urine Bilirubin (NEGATIVE) Urine Urobilinogen (<2.0) EU/dL Ur Leukocyte Esterase (NEGATIVE) Urine RBC (0-2/HPF) Urine WBC (0-5/HPF) Ur Epithelial Cells (NONE-FEW) Amorphous Sediment (NEGATIVE) Urine Bacteria (NEGATIVE) Urine Mucus (NONE-MOD) Urine HCG, Qual (NEGATIVE) 08/09/20 08/09/20 Range/Units 17:20 17:20 WBC (4.0-11.0) K/uL RBC (4.30-5.90) M/uL Hgb (12.0-16.0) g/dL Hct (36.0-46.0) % MCV (80.0-98.0) fL MCH (27.0-32.0) pg MCHC (31.0-37.0) g/dL RDW Std Deviation (28.0-62.0) fl RDW Coeff of Sobia (11.0-15.0) % Plt Count (150-400) K/uL MPV (7.40-12.00) fL Neut % (Auto) (48.0-80.0) % Lymph % (Auto) (16.0-40.0) % Barton % (Auto) (0.0-15.0) % Eos % (Auto) (0.0-7.0) % Baso % (Auto) (0.0-1.5) % Neut # (Auto) (1.4-5.7) K/uL Lymph # (Auto) (0.6-2.4) K/uL Barton # (Auto) (0.0-0.8) K/uL Eos # (Auto) (0.0-0.7) K/uL Baso # (Auto) (0.0-0.1) K/uL Nucleated RBC % /100WBC Nucleated RBCs # K/uL Lactate (0.20-2.00) mmol/L Sodium (136-145) mmol/L Potassium (3.5-5.1) mmol/L Chloride (98-107) mmol/L Carbon Dioxide (21.0-32.0) mmol/L BUN (7.0-18.0) mg/dL Creatinine (0.6-1.0) mg/dL Est Cr Clr Drug Dosing mL/min Estimated GFR (MDRD) ml/min Glucose (74-106) mg/dL Calcium (8.5-10.1) mg/dL Total Bilirubin (0.2-1.0) mg/dL AST (15-37) IU/L ALT (14-63) IU/L Alkaline Phosphatase (46-116) U/L Total Protein (6.4-8.2) g/dL Albumin (3.4-5.0) g/dL Globulin (2.6-4.0) g/dL Albumin/Globulin Ratio (0.9-1.6) Urine Color YELLOW Urine Appearance CLEAR Urine pH 6.5 (5.0-8.0) Ur Specific Archbold 1.010 (1.001-1.035) Urine Protein NEGATIVE (NEGATIVE) mg/dL Urine Glucose (UA) NEGATIVE (NEGATIVE) mg/dL Urine Ketones NEGATIVE (NEGATIVE) mg/dL Urine Occult Blood TRACE-INTACT H (NEGATIVE) Urine Nitrite NEGATIVE (NEGATIVE) Urine Bilirubin NEGATIVE (NEGATIVE) Urine Urobilinogen 0.2 (<2.0) EU/dL Ur Leukocyte Esterase NEGATIVE (NEGATIVE) Urine RBC 0-2 (0-2/HPF) Urine WBC 0-1 (0-5/HPF) Ur Epithelial Cells FEW (NONE-FEW) Amorphous Sediment RARE (NEGATIVE) Urine Bacteria FEW (NEGATIVE) Urine Mucus RARE (NONE-MOD) Urine HCG, Qual NEGATIVE (NEGATIVE) Meds: Medications Generic Name Dose Route Start Last Admin Trade Name Freq PRN Reason Stop Dose Admin Sodium Chloride 10 ml 08/09/20 16:58 08/09/20 17:28 Saline Flush FLUSH 10 ml ASDIRECTED PRN Administration Keep Vein Open Sodium Chloride 2.5 ml 08/09/20 16:58 08/09/20 17:28 Saline Flush FLUSH 2.5 ml ASDIRECTED PRN Administration Keep Vein Open Discontinued Medications Generic Name Dose Route Start Last Admin Trade Name Damonq PRN Reason Stop Dose Admin Ceftriaxone Sodium/Dextrose 1 50 mls @ 100 mls/hr 08/09/20 16:58 08/09/20 17:27 gm/ Premix IV 08/09/20 17:27 100 mls/hr ONETIME ONE Administration Sodium Chloride 1,000 mls @ 999 mls/hr 08/09/20 16:58 08/09/20 17:27 Normal Saline IV 08/09/20 17:58 999 mls/hr .Bolus ONE Administration Ondansetron HCl 4 mg 08/09/20 17:15 08/09/20 17:28 Zofran IVPUSH 08/09/20 17:16 4 mg ONETIME ONE Administration Departure - Departure Time of Disposition: 18:20 Disposition: Admitted As Inpatient 65 Condition: Good Clinical Impression: Pyelonephritis - Discharge Information *PRESCRIPTION DRUG MONITORING PROGRAM REVIEWED*: Not Applicable *COPY OF PRESCRIPTION DRUG MONITORING REPORT IN PATIENT MELLY: Not Applicable Referrals: Eben Odom DO [Primary Care Provider] - Forms: ED Department Discharge Sepsis Event Note (ED) - Evaluation Sepsis Screening Result: No Definite Risk - Focused Exam Vital Signs: Vital Signs Temp Pulse Resp BP Pulse Ox 08/09/20 16:40 37.0 C 86 20 157/93 H 95 - My Orders Last 24 Hours: My Active Orders 08/09/20 16:58 Sodium Chloride 0.9% [Saline Flush] 10 ml FLUSH ASDIRECTED PRN Sodium Chloride 0.9% [Saline Flush] 2.5 ml FLUSH ASDIRECTED PRN Saline Lock Insert [OM.PC] Stat 08/09/20 18:08 CORONAVIRUS COVID-19 PCR PHL Stat - Assessment/Plan Last 24 Hours: My Active Orders 08/09/20 16:58 Sodium Chloride 0.9% [Saline Flush] 10 ml FLUSH ASDIRECTED PRN Sodium Chloride 0.9% [Saline Flush] 2.5 ml FLUSH ASDIRECTED PRN Saline Lock Insert [OM.PC] Stat 08/09/20 18:08 CORONAVIRUS COVID-19 PCR PHL Stat
[2020-08-09 18:09] LABS: BLOOD UREA NITROGEN,BUN 4 mg/dL (7.0-18.0); CARBON DIOXIDE,CO2 23.5 mmol/L (21.0-32.0); CHLORIDE,CL 104 mmol/L (98-107); GLUCOSE RANDOM 87 mg/dL (74-106); POTASSIUM,K 3.2 mmol/L (3.5-5.1); SODIUM,NA 141 mmol/L (136-145)
--- NOTE | 2020-08-09 19:45 | US ---
INDICATION: pyelonephritis RENAL ULTRASOUND Multiple sonographic images of the kidneys and urinary bladder were performed. The kidneys appear normal in size and shape, the right kidney measuring 11.1 x 5.0 x 5.6cm and the left kidney measuring 11.9 x 6.2 x 5.3cm. Renal parenchymal thickness and echogenicity are within normal limits. No renal masses or calcifications are identified and there is no hydronephrosis involving either kidney. Images of the urinary bladder show no apparent wall thickening or mass. Ureteral jets are demonstrated. IMPRESSION: Normal renal ultrasound. MARIS CEDILLO MD [facility] Dictated by: Cuco Cedillo MD @ 08/09/2020 19:43:59 (Electronically Signed)
[2020-08-09] MEDS ORDERED: Potassium Chloride 20 MEQ Tab.ER PO ONE (22:10)
[2020-08-09] MEDS ORDERED: Acetaminophen 325 MG Tab PO PRN (22:40)
--- NOTE | 2020-08-09 23:43 | PCM.HP.2 ---
H&P History of Present Illness - General Date of Service: 08/09/20 Admit Problem/Dx: Admission Diagnosis/Problem Admission Diagnosis/Problem Pyelonephritis - History of Present Illness Initial Comments - Free Text/Narative: 45 yo female who over past few weeks has been feeling ill. She reports nausea and vomiting. She denies any fevers, chills, dysuria, cough, shortness of breath or abdominal pain. She was seen in the ED four days ago noted to have a UTI with a lactate of 4 which improved with IV fluids. She was sent home on bactrim. She reports she has still burton nauseated and filling ill. She reports chronic lower back pain on and off. - Related Data Allergies/Adverse Reactions: Allergies Allergy/AdvReac Type Severity Reaction Status Date / Time Penicillins Allergy Vomiting Verified 08/09/20 16:43 Home Medications: Home Meds Promethazine [Phenergan] 10 mg PO ASDIRECTED 03/13/19 [History] Ondansetron [Zofran ODT] 4 mg PO Q6H PRN #12 tab.dis 08/05/20 [Rx] Sulfamethoxazole/Trimethoprim [Bactrim Ds Tablet] 1 each PO BID 7 Days #14 tablet 08/05/20 [Rx] Past Medical History HEENT History: Reports: Impaired Vision, Other (See Below) Other HEENT History: wears glasses Cardiovascular History: Reports: Blood Clots/VTE/DVT, Hypertension Other Cardiovascular History: PE, Seepsis Respiratory History: Reports: PE Gastrointestinal History: Reports: None Genitourinary History: Reports: UTI, Recurrent Other Genitourinary History: anorexia 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 Musculoskeletal History: Reports: None Neurological History: Reports: None Psychiatric History: Reports: Anxiety Endocrine/Metabolic History: Reports: None Hematologic History: Reports: Other (See Below) Other Hematologic History: sepsis Immunologic History: Reports: None Oncologic (Cancer) History: Reports: None Dermatologic History: Reports: None, Other (See Below) Other Dermatologic History: DVT - Infectious Disease History Infectious Disease History: Reports: Chicken Pox, Measles Other Infectious Disease History: sepsis - Past Surgical History Head Surgeries/Procedures: Reports: None HEENT Surgical History: Reports: None Cardiovascular Surgical History: Reports: None Respiratory Surgical History: Reports: None GI Surgical History: Reports: None Female Surgical History: Reports: None Endocrine Surgical History: Reports: None Neurological Surgical History: Reports: None Musculoskeletal Surgical History: Reports: None Oncologic Surgical History: Reports: None Dermatological Surgical History: Reports: None Social & Family History - Family History Family Medical History: Noncontributory - Tobacco Use Smoking Status *Q: Current Every Day Smoker Years of Tobacco use: 20 Packs/Tins Daily: 1 - Caffeine Use Caffeine Use: Reports: Coffee - Recreational Drug Use Recreational Drug Use: No H&P Review of Systems - Review of Systems: Review Of Systems: Comprehensive ROS is negative, except as noted in HPI. Exam - Exam Exam: See Below - Vital Signs Vital Signs: Last Vital Signs Temp 35.9 C L 08/09/20 21:08 Pulse 70 08/09/20 21:08 Resp 17 08/09/20 21:08 BP 156/96 H 08/09/20 21:08 Pulse Ox 98 08/09/20 21:08 Weight: 60.6 kg - Exam General: Alert, Oriented HEENT: Mucosa Moist & [place] Lungs: Clear to Auscultation, Normal Respiratory Effort Cardiovascular: Regular Rate, Regular Rhythm GI/Abdominal Exam: Normal Bowel Sounds, Soft, Non-Tender Back Exam: No: CVA Tenderness (L), CVA Tenderness (R) Extremities: Non-Tender, No Pedal Edema Skin: Warm, Dry, Intact - Patient Data Lab Results Last 24 hrs: Laboratory Results - last 24 hr 08/09/20 08/09/20 08/09/20 Range/Units 17:19 17:19 17:19 WBC 10.00 (4.0-11.0) K/uL RBC 3.73 L (4.30-5.90) M/uL Hgb 14.2 (12.0-16.0) g/dL Hct 41.2 (36.0-46.0) % MCV 110.5 H (80.0-98.0) fL MCH 38.1 H (27.0-32.0) pg MCHC 34.5 (31.0-37.0) g/dL RDW Std Deviation 59.4 (28.0-62.0) fl RDW Coeff of [place] 15 (11.0-15.0) % Plt Count 295 (150-400) K/uL MPV 9.50 (7.40-12.00) fL Neut % (Auto) 63.8 (48.0-80.0) % Lymph % (Auto) 25.3 (16.0-40.0) % [place] % (Auto) 9.0 (0.0-15.0) % Eos % (Auto) 1.7 (0.0-7.0) % Baso % (Auto) 0.2 (0.0-1.5) % Neut # (Auto) 6.4 H (1.4-5.7) K/uL Lymph # (Auto) 2.5 H (0.6-2.4) K/uL [place] # (Auto) 0.9 H (0.0-0.8) K/uL Eos # (Auto) 0.2 (0.0-0.7) K/uL Baso # (Auto) 0.0 (0.0-0.1) K/uL Nucleated RBC % 0.0 /100WBC Nucleated RBCs # 0 K/uL Lactate 2.2 H* (0.20-2.00) mmol/L Sodium 141 (136-145) mmol/L Potassium 3.2 L (3.5-5.1) mmol/L Chloride 104 (98-107) mmol/L Carbon Dioxide 23.5 (21.0-32.0) mmol/L BUN 4 L (7.0-18.0) mg/dL Creatinine 0.5 L (0.6-1.0) mg/dL Est Cr Clr Drug Dosing 130.87 mL/min Estimated GFR (MDRD) > 60.0 ml/min Glucose 87 (74-106) mg/dL Calcium 8.2 L (8.5-10.1) mg/dL Total Bilirubin 0.4 (0.2-1.0) mg/dL AST 152 H (15-37) IU/L ALT 91 H (14-63) IU/L Alkaline Phosphatase 149 H (46-116) U/L Total Protein 6.3 L (6.4-8.2) g/dL Albumin 3.0 L (3.4-5.0) g/dL Globulin 3.3 (2.6-4.0) g/dL Albumin/Globulin Ratio 0.9 (0.9-1.6) Urine Color Urine Appearance Urine pH (5.0-8.0) Ur Specific [place] (1.001-1.035) Urine Protein (NEGATIVE) mg/dL Urine Glucose (UA) (NEGATIVE) mg/dL Urine Ketones (NEGATIVE) mg/dL Urine Occult Blood (NEGATIVE) Urine Nitrite (NEGATIVE) Urine Bilirubin (NEGATIVE) Urine Urobilinogen (<2.0) EU/dL Ur Leukocyte Esterase (NEGATIVE) Urine RBC (0-2/HPF) Urine WBC (0-5/HPF) Ur Epithelial Cells (NONE-FEW) Amorphous Sediment (NEGATIVE) Urine Bacteria (NEGATIVE) Urine Mucus (NONE-MOD) Urine HCG, Qual (NEGATIVE) SARS-CoV-2 RNA (SD) (NEGATIVE) 08/09/20 08/09/20 08/09/20 Range/Units 17:20 17:20 19:10 WBC (4.0-11.0) K/uL RBC (4.30-5.90) M/uL Hgb (12.0-16.0) g/dL Hct (36.0-46.0) % MCV (80.0-98.0) fL MCH (27.0-32.0) pg MCHC (31.0-37.0) g/dL RDW Std Deviation (28.0-62.0) fl RDW Coeff of [place] (11.0-15.0) % Plt Count (150-400) K/uL MPV (7.40-12.00) fL Neut % (Auto) (48.0-80.0) % Lymph % (Auto) (16.0-40.0) % [place] % (Auto) (0.0-15.0) % Eos % (Auto) (0.0-7.0) % Baso % (Auto) (0.0-1.5) % Neut # (Auto) (1.4-5.7) K/uL Lymph # (Auto) (0.6-2.4) K/uL [place] # (Auto) (0.0-0.8) K/uL Eos # (Auto) (0.0-0.7) K/uL Baso # (Auto) (0.0-0.1) K/uL Nucleated RBC % /100WBC Nucleated RBCs # K/uL Lactate (0.20-2.00) mmol/L Sodium (136-145) mmol/L Potassium (3.5-5.1) mmol/L Chloride (98-107) mmol/L Carbon Dioxide (21.0-32.0) mmol/L BUN (7.0-18.0) mg/dL Creatinine (0.6-1.0) mg/dL Est Cr Clr Drug Dosing mL/min Estimated GFR (MDRD) ml/min Glucose (74-106) mg/dL Calcium (8.5-10.1) mg/dL Total Bilirubin (0.2-1.0) mg/dL AST (15-37) IU/L ALT (14-63) IU/L Alkaline Phosphatase (46-116) U/L Total Protein (6.4-8.2) g/dL Albumin (3.4-5.0) g/dL Globulin (2.6-4.0) g/dL Albumin/Globulin Ratio (0.9-1.6) Urine Color YELLOW Urine Appearance CLEAR Urine pH 6.5 (5.0-8.0) Ur Specific [place] 1.010 (1.001-1.035) Urine Protein NEGATIVE (NEGATIVE) mg/dL Urine Glucose (UA) NEGATIVE (NEGATIVE) mg/dL Urine Ketones NEGATIVE (NEGATIVE) mg/dL Urine Occult Blood TRACE-INTACT H (NEGATIVE) Urine Nitrite NEGATIVE (NEGATIVE) Urine Bilirubin NEGATIVE (NEGATIVE) Urine Urobilinogen 0.2 (<2.0) EU/dL Ur Leukocyte Esterase NEGATIVE (NEGATIVE) Urine RBC 0-2 (0-2/HPF) Urine WBC 0-1 (0-5/HPF) Ur Epithelial Cells FEW (NONE-FEW) Amorphous Sediment RARE (NEGATIVE) Urine Bacteria FEW (NEGATIVE) Urine Mucus RARE (NONE-MOD) Urine HCG, Qual NEGATIVE (NEGATIVE) SARS-CoV-2 RNA (SD) NEGATIVE (NEGATIVE) 08/09/20 Range/Units 21:47 WBC (4.0-11.0) K/uL RBC (4.30-5.90) M/uL Hgb (12.0-16.0) g/dL Hct (36.0-46.0) % MCV (80.0-98.0) fL MCH (27.0-32.0) pg MCHC (31.0-37.0) g/dL RDW Std Deviation (28.0-62.0) fl RDW Coeff of [place] (11.0-15.0) % Plt Count (150-400) K/uL MPV (7.40-12.00) fL Neut % (Auto) (48.0-80.0) % Lymph % (Auto) (16.0-40.0) % [place] % (Auto) (0.0-15.0) % Eos % (Auto) (0.0-7.0) % Baso % (Auto) (0.0-1.5) % Neut # (Auto) (1.4-5.7) K/uL Lymph # (Auto) (0.6-2.4) K/uL [place] # (Auto) (0.0-0.8) K/uL Eos # (Auto) (0.0-0.7) K/uL Baso # (Auto) (0.0-0.1) K/uL Nucleated RBC % /100WBC Nucleated RBCs # K/uL Lactate 1.1 (0.20-2.00) mmol/L Sodium (136-145) mmol/L Potassium (3.5-5.1) mmol/L Chloride (98-107) mmol/L Carbon Dioxide (21.0-32.0) mmol/L BUN (7.0-18.0) mg/dL Creatinine (0.6-1.0) mg/dL Est Cr Clr Drug Dosing mL/min Estimated GFR (MDRD) ml/min Glucose (74-106) mg/dL Calcium (8.5-10.1) mg/dL Total Bilirubin (0.2-1.0) mg/dL AST (15-37) IU/L ALT (14-63) IU/L Alkaline Phosphatase (46-116) U/L Total Protein (6.4-8.2) g/dL Albumin (3.4-5.0) g/dL Globulin (2.6-4.0) g/dL Albumin/Globulin Ratio (0.9-1.6) Urine Color Urine Appearance Urine pH (5.0-8.0) Ur Specific [place] (1.001-1.035) Urine Protein (NEGATIVE) mg/dL Urine Glucose (UA) (NEGATIVE) mg/dL Urine Ketones (NEGATIVE) mg/dL Urine Occult Blood (NEGATIVE) Urine Nitrite (NEGATIVE) Urine Bilirubin (NEGATIVE) Urine Urobilinogen (<2.0) EU/dL Ur Leukocyte Esterase (NEGATIVE) Urine RBC (0-2/HPF) Urine WBC (0-5/HPF) Ur Epithelial Cells (NONE-FEW) Amorphous Sediment (NEGATIVE) Urine Bacteria (NEGATIVE) Urine Mucus (NONE-MOD) Urine HCG, Qual (NEGATIVE) SARS-CoV-2 RNA (SD) (NEGATIVE) Result Diagrams: 08/09/20 17:19 08/09/20 17:19 Sepsis Event Note - Evaluation Sepsis Screening Result: No Definite Risk - Focused Exam Vital Signs: Vital Signs Temp Pulse Resp BP Pulse Ox 08/09/20 21:08 35.9 C L 70 17 156/96 H 98 08/09/20 20:08 65 130/87 96 08/09/20 19:08 71 141/90 H 96 08/09/20 18:39 66 142/82 H 98 08/09/20 17:13 79 18 168/90 H 98 08/09/20 16:40 37.0 C 86 20 157/93 H 95 Problem List Initiated/Reviewed/Updated: Yes Orders Last 24hrs: Active Orders 24 hr Category Date Time Status Patient Status [ADT] Routine ADT 08/09/20 18:26 Active Antiembolic Devices [RC] PER UNIT ROUTINE Care 08/09/20 23:37 Ordered Oxygen Therapy [RC] PRN Care 08/09/20 23:36 Ordered Up ad [place] [RC] ASDIRECTED Care 08/09/20 23:36 Ordered VTE/DVT Education [RC] PER UNIT ROUTINE Care 08/09/20 23:36 Ordered Vital Signs [RC] Q4H Care 08/09/20 23:36 Ordered Regular Diet [DIET] Diet 08/10/20 Breakfast Active BASIC METABOLIC PANEL,BMP [CHEM] Routine Lab 08/10/20 05:11 Ordered CBC WITH AUTO DIFF [HEME] Routine Lab 08/10/20 05:11 Ordered CULTURE URINE [RM] Routine Lab 08/09/20 17:20 Received MAGNESIUM [CHEM] Routine Lab 08/09/20 23:38 Ordered Acetaminophen [TylenoL] Med 08/09/20 22:40 Active 650 mg PO Q6H PRN Enoxaparin [Lovenox] Med 08/09/20 23:45 Ordered 40 mg SUBCUT Q24H Ondansetron [Zofran] Med 08/09/20 22:41 Active 4 mg IVPUSH Q4H PRN Sodium Chloride 0.9% @ 125 MLS/HR (1000ml) Med 08/09/20 23:45 Ordered Sodium Chloride 0.9% [Normal Saline] 1,000 ml IV ASDIRECTED Sodium Chloride 0.9% [Saline Flush] Med 08/09/20 16:58 Active 10 ml FLUSH ASDIRECTED PRN Sodium Chloride 0.9% [Saline Flush] Med 08/09/20 16:58 Active 2.5 ml FLUSH ASDIRECTED PRN cefTRIAXone [Rocephin in Dextrose,Iso-Osm 1 GM/50 ML] 1 Med 08/10/20 10:00 Active gm Premix Bag 1 bag IV Q24H Saline Lock Insert [OM.PC] Stat Oth 08/09/20 16:58 Ordered Sequential Compression Device [OM.PC] Per Unit Routine Oth 08/09/20 23:37 Ordered Resuscitation Status Routine Resus Stat 08/09/20 23:36 Ordered Medication Orders Acetaminophen (Tylenol) 650 mg PO Q6H PRN PRN Reason: Pain Enoxaparin Sodium (Lovenox) 40 mg SUBCUT Q24H NEVA Ceftriaxone Sodium/Dextrose 1 (gm/ Premix) 50 mls @ 100 mls/hr IV Q24H NEVA Sodium Chloride (Normal Saline) 1,000 mls @ 125 mls/hr IV ASDIRECTED NEVA Ondansetron HCl (Zofran) 4 mg IVPUSH Q4H PRN PRN Reason: Nausea/Vomiting Sodium Chloride (Saline Flush) 10 ml FLUSH ASDIRECTED PRN PRN Reason: Keep Vein Open Last Admin: 08/09/20 17:28 Dose: 10 ml Documented by: KAUSHIK Sodium Chloride (Saline Flush) 2.5 ml FLUSH ASDIRECTED PRN PRN Reason: Keep Vein Open Last Admin: 08/09/20 17:28 Dose: 2.5 ml Documented by: KAUSHIK Assessment/Plan Comment:: 45 yo female admitted for suspect UTI which has failed outpatient management. We will treat with Rocephin, cultures ordered. Will hydrate with IV fluids.
[2020-08-09] MEDS ORDERED: Enoxaparin 40 MG/0.4 ML Syringe SUBCUT ONE (23:45)
[2020-08-09] MEDS ORDERED: Sodium Chloride 0.9% 1,000 ML IV SCH (23:45)
[2020-08-10] MEDS: Ondansetron 4 MG/2 ML SDV IVPUSH PRN ×2 (00:46→10:46)
[2020-08-10 06:50] LABS: BLOOD UREA NITROGEN,BUN 6 mg/dL (7.0-18.0); CARBON DIOXIDE,CO2 28.1 mmol/L (21.0-32.0); CHLORIDE,CL 106 mmol/L (98-107); GLUCOSE RANDOM 86 mg/dL (74-106); POTASSIUM,K 3.8 mmol/L (3.5-5.1); SODIUM,NA 141 mmol/L (136-145)
[2020-08-10] MEDS ORDERED: cefTRIAXone 1 GM in Premix Bag 1 BAG IV SCH (10:00)
--- NOTE | 2020-08-10 10:33 | PCM.DCSUM1 ---
Discharge Summary - Hospital Course Brief History: 45 yo female who over past few weeks has been feeling ill. She reports nausea and vomiting. She denies any fevers, chills, dysuria, cough, shortness of breath or abdominal pain. She was seen in the ED four days ago noted to have a UTI with a lactate of 4 which improved with IV fluids. She was sent home on bactrim. She reports she has still bur[place] nauseated and filling ill. She reports chronic lower back pain on and off. - Discharge Data Discharge Date: 08/10/20 Discharge Disposition: Home, Self-Care 01 Condition: Good - Referral to Home Health Primary Care Physician: Eben Odom DO - Patient Summary/Data Hospital Course: Admitting Diagnoses: Pyelonephritis Discharge Diagnoses: Pyelonephritis She was admitted secondary to continued illness and low back pain suspected pyelonephritis. She was placed on Rocephin. Lactic acid was elevated on arrival she was given IV fluids which improved this. Today she is feeling much better no more back pain and tolerating diet well. She is requesting discharge home. I will discharge home with Levaquin 750 for 5 more days for pyelonephritis. She is to return to the ER or clinic if concerns should arise sooner. Follow-up with PCP in 1 week. She was told to monitor for fevers chil ls and return of back pain. - Patient Instructions Diet: Regular Diet as Tolerated Activity: As Tolerated, No Strenuous Activities, Rest and Relax Today Showering/Bathing: May Shower Notify Provider of: Fever, Increased Pain, Swelling and Redness, Drainage, Nausea and/or Vomiting - Discharge Plan *PRESCRIPTION DRUG MONITORING PROGRAM REVIEWED*: Not Applicable *COPY OF PRESCRIPTION DRUG MONITORING REPORT IN PATIENT MELLY: Not Applicable Prescriptions/Med Rec: levoFLOXacin [Levaquin] 750 mg PO DAILY #5 tab Home Medications: Home Meds Promethazine [Phenergan] 10 mg PO ASDIRECTED PRN 03/13/19 [History] Ondansetron [Zofran ODT] 8 mg PO Q6H PRN 08/10/20 [History] levoFLOXacin [Levaquin] 750 mg PO DAILY #5 tab 08/10/20 [Rx] Oxygen Therapy Mode: Room Air Patient Handouts: Pyelonephritis, Adult, Urinary Tract Infection, Adult, Levofloxacin tablets Referrals: Eben Odom DO [Primary Care Provider] - 08/28/20 5:45 pm - Discharge Summary/Plan Comment DC Time >30 min.: No - Patient Data Vitals - Most Recent: Last Vital Signs Temp 98.4 F 08/10/20 08:00 Pulse 67 08/10/20 08:00 Resp 16 08/10/20 08:00 BP 163/79 H 08/10/20 08:00 Pulse Ox 96 08/10/20 08:00 Weight - Most Recent: 60.6 kg I&O - Last 24 hours: Intake & Output 08/09/20 08/10/20 08/10/20 22:59 06:59 14:59 Intake Total 550 Output Total 650 Balance -100 Lab Results - Last 24 hrs: Laboratory Results - last 24 hr 08/09/20 08/09/20 08/09/20 Range/Units 17:19 17:19 17:19 WBC 10.00 (4.0-11.0) K/uL RBC 3.73 L (4.30-5.90) M/uL Hgb 14.2 (12.0-16.0) g/dL Hct 41.2 (36.0-46.0) % MCV 110.5 H (80.0-98.0) fL MCH 38.1 H (27.0-32.0) pg MCHC 34.5 (31.0-37.0) g/dL RDW Std Deviation 59.4 (28.0-62.0) fl RDW Coeff of [place] 15 (11.0-15.0) % Plt Count 295 (150-400) K/uL MPV 9.50 (7.40-12.00) fL Neut % (Auto) 63.8 (48.0-80.0) % Lymph % (Auto) 25.3 (16.0-40.0) % [place] % (Auto) 9.0 (0.0-15.0) % Eos % (Auto) 1.7 (0.0-7.0) % Baso % (Auto) 0.2 (0.0-1.5) % Neut # (Auto) 6.4 H (1.4-5.7) K/uL Lymph # (Auto) 2.5 H (0.6-2.4) K/uL [place] # (Auto) 0.9 H (0.0-0.8) K/uL Eos # (Auto) 0.2 (0.0-0.7) K/uL Baso # (Auto) 0.0 (0.0-0.1) K/uL Nucleated RBC % 0.0 /100WBC Nucleated RBCs # 0 K/uL Lactate 2.2 H* (0.20-2.00) mmol/L Sodium 141 (136-145) mmol/L Potassium 3.2 L (3.5-5.1) mmol/L Chloride 104 (98-107) mmol/L Carbon Dioxide 23.5 (21.0-32.0) mmol/L BUN 4 L (7.0-18.0) mg/dL Creatinine 0.5 L (0.6-1.0) mg/dL Est Cr Clr Drug Dosing 130.87 mL/min Estimated GFR (MDRD) > 60.0 ml/min Glucose 87 (74-106) mg/dL Calcium 8.2 L (8.5-10.1) mg/dL Magnesium (1.8-2.4) mg/dL Total Bilirubin 0.4 (0.2-1.0) mg/dL AST 152 H (15-37) IU/L ALT 91 H (14-63) IU/L Alkaline Phosphatase 149 H (46-116) U/L Total Protein 6.3 L (6.4-8.2) g/dL Albumin 3.0 L (3.4-5.0) g/dL Globulin 3.3 (2.6-4.0) g/dL Albumin/Globulin Ratio 0.9 (0.9-1.6) Urine Color Urine Appearance Urine pH (5.0-8.0) Ur Specific [place] (1.001-1.035) Urine Protein (NEGATIVE) mg/dL Urine Glucose (UA) (NEGATIVE) mg/dL Urine Ketones (NEGATIVE) mg/dL Urine Occult Blood (NEGATIVE) Urine Nitrite (NEGATIVE) Urine Bilirubin (NEGATIVE) Urine Urobilinogen (<2.0) EU/dL Ur Leukocyte Esterase (NEGATIVE) Urine RBC (0-2/HPF) Urine WBC (0-5/HPF) Ur Epithelial Cells (NONE-FEW) Amorphous Sediment (NEGATIVE) Urine Bacteria (NEGATIVE) Urine Mucus (NONE-MOD) Urine HCG, Qual (NEGATIVE) SARS-CoV-2 RNA (SD) (NEGATIVE) 08/09/20 08/09/20 08/09/20 Range/Units 17:19 17:20 17:20 WBC (4.0-11.0) K/uL RBC (4.30-5.90) M/uL Hgb (12.0-16.0) g/dL Hct (36.0-46.0) % MCV (80.0-98.0) fL MCH (27.0-32.0) pg MCHC (31.0-37.0) g/dL RDW Std Deviation (28.0-62.0) fl RDW Coeff of [place] (11.0-15.0) % Plt Count (150-400) K/uL MPV (7.40-12.00) fL Neut % (Auto) (48.0-80.0) % Lymph % (Auto) (16.0-40.0) % [place] % (Auto) (0.0-15.0) % Eos % (Auto) (0.0-7.0) % Baso % (Auto) (0.0-1.5) % Neut # (Auto) (1.4-5.7) K/uL Lymph # (Auto) (0.6-2.4) K/uL [place] # (Auto) (0.0-0.8) K/uL Eos # (Auto) (0.0-0.7) K/uL Baso # (Auto) (0.0-0.1) K/uL Nucleated RBC % /100WBC Nucleated RBCs # K/uL Lactate (0.20-2.00) mmol/L Sodium (136-145) mmol/L Potassium (3.5-5.1) mmol/L Chloride (98-107) mmol/L Carbon Dioxide (21.0-32.0) mmol/L BUN (7.0-18.0) mg/dL Creatinine (0.6-1.0) mg/dL Est Cr Clr Drug Dosing mL/min Estimated GFR (MDRD) ml/min Glucose (74-106) mg/dL Calcium (8.5-10.1) mg/dL Magnesium 1.4 L (1.8-2.4) mg/dL Total Bilirubin (0.2-1.0) mg/dL AST (15-37) IU/L ALT (14-63) IU/L Alkaline Phosphatase (46-116) U/L Total Protein (6.4-8.2) g/dL Albumin (3.4-5.0) g/dL Globulin (2.6-4.0) g/dL Albumin/Globulin Ratio (0.9-1.6) Urine Color YELLOW Urine Appearance CLEAR Urine pH 6.5 (5.0-8.0) Ur Specific [place] 1.010 (1.001-1.035) Urine Protein NEGATIVE (NEGATIVE) mg/dL Urine Glucose (UA) NEGATIVE (NEGATIVE) mg/dL Urine Ketones NEGATIVE (NEGATIVE) mg/dL Urine Occult Blood TRACE-INTACT H (NEGATIVE) Urine Nitrite NEGATIVE (NEGATIVE) Urine Bilirubin NEGATIVE (NEGATIVE) Urine Urobilinogen 0.2 (<2.0) EU/dL Ur Leukocyte Esterase NEGATIVE (NEGATIVE) Urine RBC 0-2 (0-2/HPF) Urine WBC 0-1 (0-5/HPF) Ur Epithelial Cells FEW (NONE-FEW) Amorphous Sediment RARE (NEGATIVE) Urine Bacteria FEW (NEGATIVE) Urine Mucus RARE (NONE-MOD) Urine HCG, Qual NEGATIVE (NEGATIVE) SARS-CoV-2 RNA (SD) (NEGATIVE) 08/09/20 08/09/20 08/10/20 Range/Units 19:10 21:47 05:38 WBC 9.37 (4.0-11.0) K/uL RBC 3.49 L (4.30-5.90) M/uL Hgb 13.0 (12.0-16.0) g/dL Hct 39.0 (36.0-46.0) % MCV 111.7 H (80.0-98.0) fL MCH 37.2 H (27.0-32.0) pg MCHC 33.3 (31.0-37.0) g/dL RDW Std Deviation 61.0 (28.0-62.0) fl RDW Coeff of [place] 15 (11.0-15.0) % Plt Count 258 (150-400) K/uL MPV 9.90 (7.40-12.00) fL Neut % (Auto) 64.3 (48.0-80.0) % Lymph % (Auto) 22.6 (16.0-40.0) % [place] % (Auto) 11.2 (0.0-15.0) % Eos % (Auto) 1.7 (0.0-7.0) % Baso % (Auto) 0.2 (0.0-1.5) % Neut # (Auto) 6.0 H (1.4-5.7) K/uL Lymph # (Auto) 2.1 (0.6-2.4) K/uL [place] # (Auto) 1.1 H (0.0-0.8) K/uL Eos # (Auto) 0.2 (0.0-0.7) K/uL Baso # (Auto) 0.0 (0.0-0.1) K/uL Nucleated RBC % 0.0 /100WBC Nucleated RBCs # 0 K/uL Lactate 1.1 (0.20-2.00) mmol/L Sodium (136-145) mmol/L Potassium (3.5-5.1) mmol/L Chloride (98-107) mmol/L Carbon Dioxide (21.0-32.0) mmol/L BUN (7.0-18.0) mg/dL Creatinine (0.6-1.0) mg/dL Est Cr Clr Drug Dosing mL/min Estimated GFR (MDRD) ml/min Glucose (74-106) mg/dL Calcium (8.5-10.1) mg/dL Magnesium (1.8-2.4) mg/dL Total Bilirubin (0.2-1.0) mg/dL AST (15-37) IU/L ALT (14-63) IU/L Alkaline Phosphatase (46-116) U/L Total Protein (6.4-8.2) g/dL Albumin (3.4-5.0) g/dL Globulin (2.6-4.0) g/dL Albumin/Globulin Ratio (0.9-1.6) Urine Color Urine Appearance Urine pH (5.0-8.0) Ur Specific [place] (1.001-1.035) Urine Protein (NEGATIVE) mg/dL Urine Glucose (UA) (NEGATIVE) mg/dL Urine Ketones (NEGATIVE) mg/dL Urine Occult Blood (NEGATIVE) Urine Nitrite (NEGATIVE) Urine Bilirubin (NEGATIVE) Urine Urobilinogen (<2.0) EU/dL Ur Leukocyte Esterase (NEGATIVE) Urine RBC (0-2/HPF) Urine WBC (0-5/HPF) Ur Epithelial Cells (NONE-FEW) Amorphous Sediment (NEGATIVE) Urine Bacteria (NEGATIVE) Urine Mucus (NONE-MOD) Urine HCG, Qual (NEGATIVE) SARS-CoV-2 RNA (SD) NEGATIVE (NEGATIVE) 08/10/20 Range/Units 05:38 WBC (4.0-11.0) K/uL RBC (4.30-5.90) M/uL Hgb (12.0-16.0) g/dL Hct (36.0-46.0) % MCV (80.0-98.0) fL MCH (27.0-32.0) pg MCHC (31.0-37.0) g/dL RDW Std Deviation (28.0-62.0) fl RDW Coeff of [place] (11.0-15.0) % Plt Count (150-400) K/uL MPV (7.40-12.00) fL Neut % (Auto) (48.0-80.0) % Lymph % (Auto) (16.0-40.0) % [place] % (Auto) (0.0-15.0) % Eos % (Auto) (0.0-7.0) % Baso % (Auto) (0.0-1.5) % Neut # (Auto) (1.4-5.7) K/uL Lymph # (Auto) (0.6-2.4) K/uL [place] # (Auto) (0.0-0.8) K/uL Eos # (Auto) (0.0-0.7) K/uL Baso # (Auto) (0.0-0.1) K/uL Nucleated RBC % /100WBC Nucleated RBCs # K/uL Lactate (0.20-2.00) mmol/L Sodium 141 (136-145) mmol/L Potassium 3.8 (3.5-5.1) mmol/L Chloride 106 (98-107) mmol/L Carbon Dioxide 28.1 (21.0-32.0) mmol/L BUN 6 L (7.0-18.0) mg/dL Creatinine 0.6 (0.6-1.0) mg/dL Est Cr Clr Drug Dosing 112.08 mL/min Estimated GFR (MDRD) > 60.0 ml/min Glucose 86 (74-106) mg/dL Calcium 7.8 L (8.5-10.1) mg/dL Magnesium (1.8-2.4) mg/dL Total Bilirubin (0.2-1.0) mg/dL AST (15-37) IU/L ALT (14-63) IU/L Alkaline Phosphatase (46-116) U/L Total Protein (6.4-8.2) g/dL Albumin (3.4-5.0) g/dL Globulin (2.6-4.0) g/dL Albumin/Globulin Ratio (0.9-1.6) Urine Color Urine Appearance Urine pH (5.0-8.0) Ur Specific [place] (1.001-1.035) Urine Protein (NEGATIVE) mg/dL Urine Glucose (UA) (NEGATIVE) mg/dL Urine Ketones (NEGATIVE) mg/dL Urine Occult Blood (NEGATIVE) Urine Nitrite (NEGATIVE) Urine Bilirubin (NEGATIVE) Urine Urobilinogen (<2.0) EU/dL Ur Leukocyte Esterase (NEGATIVE) Urine RBC (0-2/HPF) Urine WBC (0-5/HPF) Ur Epithelial Cells (NONE-FEW) Amorphous Sediment (NEGATIVE) Urine Bacteria (NEGATIVE) Urine Mucus (NONE-MOD) Urine HCG, Qual (NEGATIVE) SARS-CoV-2 RNA (SD) (NEGATIVE) Med Orders - Current: Current Medications Acetaminophen (Tylenol) 650 mg PO Q6H PRN PRN Reason: Pain Enoxaparin Sodium (Lovenox) 40 mg SUBCUT Q24H [facility] Ceftriaxone Sodium/Dextrose 1 (gm/ Premix) 50 mls @ 100 mls/hr IV Q24H [facility] Sodium Chloride (Normal Saline) 1,000 mls @ 125 mls/hr IV ASDIRECTED NEVA Last Admin: 08/10/20 00:44 Dose: 125 mls/hr Documented by: Ondansetron HCl (Zofran) 4 mg IVPUSH Q4H PRN PRN Reason: Nausea/Vomiting Last Admin: 08/10/20 00:46 Dose: 4 mg Documented by: Sodium Chloride (Saline Flush) 10 ml FLUSH ASDIRECTED PRN PRN Reason: Keep Vein Open Last Admin: 08/09/20 17:28 Dose: 10 ml Documented by: Sodium Chloride (Saline Flush) 2.5 ml FLUSH ASDIRECTED PRN PRN Reason: Keep Vein Open Last Admin: 08/09/20 17:28 Dose: 2.5 ml Documented by: Discontinued Medications Enoxaparin Sodium (Lovenox) 40 mg SUBCUT ONETIME ONE Stop: 08/09/20 23:46 Last Admin: 08/10/20 00:34 Dose: 40 mg Documented by: Ceftriaxone Sodium/Dextrose 1 (gm/ Premix) 50 mls @ 100 mls/hr IV ONETIME ONE Stop: 08/09/20 17:27 Last Admin: 08/09/20 17:27 Dose: 100 mls/hr Documented by: Sodium Chloride (Normal Saline) 1,000 mls @ 999 mls/hr IV .Bolus ONE Stop: 08/09/20 17:58 Last Admin: 08/09/20 17:27 Dose: 999 mls/hr Documented by: Ondansetron HCl (Zofran) 4 mg IVPUSH ONETIME ONE Stop: 08/09/20 17:16 Last Admin: 08/09/20 17:28 Dose: 4 mg Documented by: Potassium Chloride (Klor-Con M20) 40 meq PO ONETIME ONE Stop: 08/09/20 22:11 Last Admin: 08/09/20 23:07 Dose: 40 meq Documented by:
[2020-08-10] MEDS ORDERED: Enoxaparin 40 MG/0.4 ML Syringe SUBCUT SCH (21:00)
== END 2020-08-10 14:15 | disposition home or self-care (01) | DRG 690 ==
LOC: MW.ED 16:33 → MW.MS 18:26
PROVIDERS: ADMIT Internal Medicine; ATTEND Internal Medicine
DX: N12 Tubulo-interstitial nephritis, not specified as acute or chronic (principal); F41.9 Anxiety disorder, unspecified; I10 Essential (primary) hypertension; F17.200 Nicotine dependence, unspecified, uncomplicated; Z20.828 Contact with and (suspected) exposure to other viral communicable diseases; Z88.0 Allergy status to penicillin; Z79.899 Other long term (current) drug therapy; Z86.718 Personal history of other venous thrombosis and embolism; Z86.711 Personal history of pulmonary embolism
CPT/HCPCS: 36415; 76770; 76770-26; 80048; 80053; 81001; 81025; 83605; 83735; 85025; 87086; 96365; 96375; 99221; 99238; 99284; 99285-25; A9270-GY; J0696; J1650; J2405; J7030; U0002

== ENCOUNTER 2020-08-12 06:55 | Day surgery (SDC) | payer OTHER ==
[2020-08-12] MEDS ORDERED: Lactated Ringers 1,000 ML IV ONE (07:54)
[2020-08-12] MEDS ORDERED: fentaNYL 50 MCG/ML SDV IVPUSH ONE (07:54)
[2020-08-12] MEDS ORDERED: Sodium Chloride 0.9% 10 ML Syringe FLUSH PRN (07:54)
[2020-08-12] MEDS ORDERED: Sodium Chloride 0.9% 2.5 ML Syringe FLUSH PRN (07:54)
[2020-08-12] MEDS ORDERED: Ondansetron 4 MG/2 ML SDV IVPUSH ONE (07:54)
--- NOTE | 2020-08-12 07:58 | EDM.PDOC ---
ED HPI GENERAL MEDICAL PROBLEM - General Chief Complaint: Abdominal Pain Stated Complaint: RT SIDE PAIN Time Seen by Provider: 08/12/20 07:03 Source of Information: Reports: Patient, Old Records History Limitations: Reports: No Limitations - History of Present Illness INITIAL COMMENTS - FREE TEXT/NARRATIVE: 45-year-old female with a past medical history of pyelonephritis, hypertension, DVT, recurrent UTIs, anxiety with recent hospitalization for the same presenting with abdominal pain. Recently hospitalized from 08/09 to 08/10 for pyelonephritis, discharged home with levofloxacin for 5 days. Left the hospital 2 days ago. Was feeling better. Yesterday morning, she began developing right lower quadrant abdominal pain. Onset gradual, now constant. Worse with deep breathing. Described as "sharp". Reports nausea but no vomiting. No history of prior pain like this. No history of any intra- abdominal surgeries. Denies fever, vomiting, hematemesis, diarrhea, rectal bleeding, dysuria, urinary frequency, hematuria, history of kidney stones. ROS: A 10-point review of systems was negative, except as noted in the HPI (or in the ROS section of this note). Past medical history: Reviewed, no additional pertinent history. Surgical history: Reviewed in system, no additional pertinent history. Social history: Reviewed in system, no additional pertinent history. Family history: Reviewed in system, no additional pertinent history. PHYSICAL EXAM Vital signs reviewed. Nursing notes reviewed. Constitutional: Awake, alert, non-distressed. Head: Normocephalic, atraumatic. Eyes: EOMI, conjunctiva normal, no discharge, no scleral icterus. Ears, Nose, Throat: External ears and nose normal, moist oral mucosa. Cardiovascular: 2+ radial pulse, capillary refill less than 2 seconds. Pulmonary: normal work of breathing, no accessory muscle use. Abdomen/GI: Soft, moderate tenderness with guarding in the right lower quadrant, nondistended, no guarding or rigidity, no masses. No CVA tenderness. Musculoskeletal: No deformities. Integumentary: Appropriate color for ethnicity, warm, dry, no pallor or jaundice, no rash. Neurologic: Alert, answering questions appropriately, normal speech, no facial droop, moving all extremities well. Psychiatric: Appropriate mood and affect, normal thought process. Right Lower Abdomen Pain Score (Numeric/FACES): 7 - Related Data Allergies Allergy/AdvReac Type Severity Reaction Status Date / Time Penicillins Allergy Vomiting Verified 08/12/20 07:08 Home Meds: Home Meds Promethazine [Phenergan] 10 mg PO ASDIRECTED PRN 03/13/19 [History] Ondansetron [Zofran ODT] 8 mg PO Q6H PRN 08/10/20 [History] levoFLOXacin [Levaquin] 750 mg PO DAILY #5 tab 08/10/20 [Rx] Past Medical History HEENT History: Reports: Impaired Vision, Other (See Below) Other HEENT History: wears glasses Cardiovascular History: Reports: Blood Clots/VTE/DVT, Hypertension Other Cardiovascular History: PE, Seepsis Respiratory History: Reports: PE Gastrointestinal History: Reports: None Genitourinary History: Reports: UTI, Recurrent Other Genitourinary History: anorexia FUDGER History: Reports: None Musculoskeletal History: Reports: None Neurological History: Reports: None Psychiatric History: Reports: Anxiety Endocrine/Metabolic History: Reports: None Hematologic History: Reports: Other (See Below) Other Hematologic History: sepsis Immunologic History: Reports: None Oncologic (Cancer) History: Reports: None Dermatologic History: Reports: None, Other (See Below) Other Dermatologic History: DVT - Infectious Disease History Infectious Disease History: Reports: None Other Infectious Disease History: sepsis - Past Surgical History Head Surgeries/Procedures: Reports: None HEENT Surgical History: Reports: None Cardiovascular Surgical History: Reports: None Respiratory Surgical History: Reports: None GI Surgical History: Reports: None Female Surgical History: Reports: None Endocrine Surgical History: Reports: None Neurological Surgical History: Reports: None Musculoskeletal Surgical History: Reports: None Oncologic Surgical History: Reports: None Dermatological Surgical History: Reports: None Social & Family History - Family History Family Medical History: Noncontributory - Tobacco Use Smoking Status *Q: Current Every Day Smoker Years of Tobacco use: 20 Packs/Tins Daily: 1 - Caffeine Use Caffeine Use: Reports: Coffee, Tea - Recreational Drug Use Recreational Drug Use: No ED ROS GENERAL - Review of Systems Review Of Systems: See Below ED EXAM, GI/ABD - Physical Exam Exam: See Below Course - Vital Signs Text/Narrative:: Patient hemodynamically stable, afebrile, well-appearing, looks nontoxic. Differential diagnosis includes but is not limited to: appendicitis, ovarian to rsion, constipation, rectus abdominus muscle strain, mesenteric ischemia, cystitis, pyelonephritis, renal colic, aortic aneurysm, gastritis, mesenteric thrombus, strangulated bowel, small bowel obstruction, IBD, and many others. 0745: Ordered IV access, labs, urinalysis, fentanyl and Zofran, noncontrast CT abdomen/pelvis (did recommend a contrasted CT scan but the patient refused due to prior side effects of IV contrast, primarily anxiety/restlessness, she understands the potential limitations in diagnostic utility by foregoing IV contrast and still wants to decline the contrast). 0945: Reviewed CT report concerning for acute appendicitis. I discussed this with the patient. Patient is n.p.o. She is resting comfortably. I did page the on-call surgeon Dr. Rk Norman who is going to evaluate the patient in the emergency department. We will get a routine COVID swab. Dr. Norman wants to wait on antibiotics until he evaluates the patient. 1052: Dr. Norman at bedside. 1105: Dr. Norman also concerned about acute appendicitis - will plan to take the patient to the operating room for surgical management. He does not want antibiotics in the ED at this point. Transferred to the OR in good condition. Last Recorded V/S: Last Vital Signs Temp 36.6 C 08/12/20 10:03 Pulse 91 08/12/20 10:03 Resp 20 08/12/20 10:03 BP 169/120 H 08/12/20 10:03 Pulse Ox 95 08/12/20 10:03 - Orders/Labs/Meds Orders: Active Orders 24 hr Category Date Time Status Admission Status [Patient Status] [ADT] Stat ADT 08/12/20 10:12 Active Pulse Oximetry [RC] ASDIRECTED Care 08/12/20 07:54 Active Nothing Per Oral Diet [DIET] Diet 08/12/20 Breakfast Active CORONAVIRUS COVID-19 SD [MOLEC] Stat Lab 08/12/20 10:10 Received Sodium Chloride 0.9% [Saline Flush] Med 08/12/20 07:54 Active 10 ml FLUSH ASDIRECTED PRN Sodium Chloride 0.9% [Saline Flush] Med 08/12/20 07:54 Active 2.5 ml FLUSH ASDIRECTED PRN Saline Lock Insert [OM.PC] Stat Oth 08/12/20 07:54 Ordered Medication Orders Sodium Chloride (Saline Flush) 10 ml FLUSH ASDIRECTED PRN PRN Reason: Keep Vein Open Last Admin: 08/12/20 08:12 Dose: 10 ml Documented by: KAUSHIK Sodium Chloride (Saline Flush) 2.5 ml FLUSH ASDIRECTED PRN PRN Reason: Keep Vein Open Last Admin: 08/12/20 08:12 Dose: 2.5 ml Documented by: KAUSHIK Labs: Laboratory Tests 08/12/20 08/12/20 08/12/20 Range/Units 08:00 08:00 08:08 WBC 9.53 (4.0-11.0) K/uL RBC 3.66 L (4.30-5.90) M/uL Hgb 13.9 (12.0-16.0) g/dL Hct 40.6 (36.0-46.0) % MCV 110.9 H (80.0-98.0) fL MCH 38.0 H (27.0-32.0) pg MCHC 34.2 (31.0-37.0) g/dL RDW Std Deviation 59.9 (28.0-62.0) fl RDW Coeff of [place] 15 (11.0-15.0) % Plt Count 268 (150-400) K/uL MPV 9.30 (7.40-12.00) fL Neut % (Auto) 68.2 (48.0-80.0) % Lymph % (Auto) 20.3 (16.0-40.0) % [place] % (Auto) 10.6 (0.0-15.0) % Eos % (Auto) 0.7 (0.0-7.0) % Baso % (Auto) 0.2 (0.0-1.5) % Neut # (Auto) 6.5 H (1.4-5.7) K/uL Lymph # (Auto) 1.9 (0.6-2.4) K/uL [place] # (Auto) 1.0 H (0.0-0.8) K/uL Eos # (Auto) 0.1 (0.0-0.7) K/uL Baso # (Auto) 0.0 (0.0-0.1) K/uL Nucleated RBC % 0.0 /100WBC Nucleated RBCs # 0 K/uL Lactate (0.20-2.00) mmol/L Sodium (136-145) mmol/L Potassium (3.5-5.1) mmol/L Chloride (98-107) mmol/L Carbon Dioxide (21.0-32.0) mmol/L BUN (7.0-18.0) mg/dL Creatinine (0.6-1.0) mg/dL Est Cr Clr Drug Dosing mL/min Estimated GFR (MDRD) ml/min Glucose (74-106) mg/dL Calcium (8.5-10.1) mg/dL Total Bilirubin (0.2-1.0) mg/dL AST (15-37) IU/L ALT (14-63) IU/L Alkaline Phosphatase (46-116) U/L Total Protein (6.4-8.2) g/dL Albumin (3.4-5.0) g/dL Globulin (2.6-4.0) g/dL Albumin/Globulin Ratio (0.9-1.6) Urine Color YELLOW Urine Appearance SLT CLOUDY Urine pH 6.0 (5.0-8.0) Ur Specific [place] >= 1.030 (1.001-1.035) Urine Protein NEGATIVE (NEGATIVE) mg/dL Urine Glucose (UA) NEGATIVE (NEGATIVE) mg/dL Urine Ketones NEGATIVE (NEGATIVE) mg/dL Urine Occult Blood TRACE-INTACT H (NEGATIVE) Urine Nitrite NEGATIVE (NEGATIVE) Urine Bilirubin NEGATIVE (NEGATIVE) Urine Urobilinogen 0.2 (<2.0) EU/dL Ur Leukocyte Esterase TRACE H (NEGATIVE) Urine RBC 0-2 (0-2/HPF) Urine WBC 0-2 (0-5/HPF) Ur Epithelial Cells FEW (NONE-FEW) Calcium Oxalate Crystal FEW (NEGATIVE) Amorphous Sediment LIGHT (NEGATIVE) Urine Bacteria FEW (NEGATIVE) Urine Mucus LIGHT (NONE-MOD) Urine HCG, Qual NEGATIVE (NEGATIVE) 08/12/20 08/12/20 Range/Units 08:08 08:08 WBC (4.0-11.0) K/uL RBC (4.30-5.90) M/uL Hgb (12.0-16.0) g/dL Hct (36.0-46.0) % MCV (80.0-98.0) fL MCH (27.0-32.0) pg MCHC (31.0-37.0) g/dL RDW Std Deviation (28.0-62.0) fl RDW Coeff of [place] (11.0-15.0) % Plt Count (150-400) K/uL MPV (7.40-12.00) fL Neut % (Auto) (48.0-80.0) % Lymph % (Auto) (16.0-40.0) % [place] % (Auto) (0.0-15.0) % Eos % (Auto) (0.0-7.0) % Baso % (Auto) (0.0-1.5) % Neut # (Auto) (1.4-5.7) K/uL Lymph # (Auto) (0.6-2.4) K/uL [place] # (Auto) (0.0-0.8) K/uL Eos # (Auto) (0.0-0.7) K/uL Baso # (Auto) (0.0-0.1) K/uL Nucleated RBC % /100WBC Nucleated RBCs # K/uL Lactate 1.6 (0.20-2.00) mmol/L Sodium 141 (136-145) mmol/L Potassium 3.4 L (3.5-5.1) mmol/L Chloride 104 (98-107) mmol/L Carbon Dioxide 22.9 (21.0-32.0) mmol/L BUN 4 L (7.0-18.0) mg/dL Creatinine 0.6 (0.6-1.0) mg/dL Est Cr Clr Drug Dosing 111.58 mL/min Estimated GFR (MDRD) > 60.0 ml/min Glucose 90 (74-106) mg/dL Calcium 8.4 L (8.5-10.1) mg/dL Total Bilirubin 0.2 (0.2-1.0) mg/dL AST 92 H (15-37) IU/L ALT 78 H (14-63) IU/L Alkaline Phosphatase 152 H (46-116) U/L Total Protein 6.5 (6.4-8.2) g/dL Albumin 3.0 L (3.4-5.0) g/dL Globulin 3.5 (2.6-4.0) g/dL Albumin/Globulin Ratio 0.9 (0.9-1.6) Urine Color Urine Appearance Urine pH (5.0-8.0) Ur Specific [place] (1.001-1.035) Urine Protein (NEGATIVE) mg/dL Urine Glucose (UA) (NEGATIVE) mg/dL Urine Ketones (NEGATIVE) mg/dL Urine Occult Blood (NEGATIVE) Urine Nitrite (NEGATIVE) Urine Bilirubin (NEGATIVE) Urine Urobilinogen (<2.0) EU/dL Ur Leukocyte Esterase (NEGATIVE) Urine RBC (0-2/HPF) Urine WBC (0-5/HPF) Ur Epithelial Cells (NONE-FEW) Calcium Oxalate Crystal (NEGATIVE) Amorphous Sediment (NEGATIVE) Urine Bacteria (NEGATIVE) Urine Mucus (NONE-MOD) Urine HCG, Qual (NEGATIVE) Meds: Medications Generic Name Dose Route Start Last Admin Trade Name Freq PRN Reason Stop Dose Admin Sodium Chloride 10 ml 08/12/20 07:54 08/12/20 08:12 Saline Flush FLUSH 10 ml ASDIRECTED PRN Administration Keep Vein Open Sodium Chloride 2.5 ml 08/12/20 07:54 08/12/20 08:12 Saline Flush FLUSH 2.5 ml ASDIRECTED PRN Administration Keep Vein Open Discontinued Medications Generic Name Dose Route Start Last Admin Trade Name Freq PRN Reason Stop Dose Admin Fentanyl 75 mcg 08/12/20 07:54 08/12/20 08:12 Fentanyl IVPUSH 08/12/20 07:55 75 mcg ONETIME ONE Administration Lactated Ringer's 1,000 mls @ 999 mls/hr 08/12/20 07:54 08/12/20 08:12 Ringers, Lactated IV 08/12/20 08:54 999 mls/hr .BOLUS ONE Administration Metoclopramide HCl 5 mg 08/12/20 08:38 08/12/20 09:05 Reglan IVPUSH 08/12/20 08:39 5 mg ONETIME ONE Administration Ondansetron HCl 4 mg 08/12/20 07:54 08/12/20 08:12 Zofran IVPUSH 08/12/20 07:55 4 mg ONETIME ONE Administration Departure - Departure Time of Disposition: 11:08 Disposition: Still A Patient 30 Condition: Good Clinical Impression: Appendicitis Qualifiers: Appendicitis type: acute appendicitis Acute appendicitis type: unspecified acute appendicitis type Qualified Code(s): K35.80 - Unspecified acute appendicitis - Discharge Information Sepsis Event Note (ED) - Evaluation Sepsis Screening Result: No Definite Risk - Focused Exam Vital Signs: Vital Signs Temp Pulse Resp BP Pulse Ox 08/12/20 10:03 36.6 C 91 20 169/120 H 95 08/12/20 09:23 92 174/90 H 95 08/12/20 08:22 99 16 115/94 H 94 L 08/12/20 07:08 36.8 C 106 H 20 136/74 94 L - My Orders Last 24 Hours: My Active Orders 08/12/20 Breakfast Nothing Per Oral Diet [DIET] 08/12/20 07:54 Pulse Oximetry [RC] ASDIRECTED Sodium Chloride 0.9% [Saline Flush] 10 ml FLUSH ASDIRECTED PRN Sodium Chloride 0.9% [Saline Flush] 2.5 ml FLUSH ASDIRECTED PRN Saline Lock Insert [OM.PC] Stat 08/12/20 10:10 CORONAVIRUS COVID-19 SD [MOLEC] Stat 08/12/20 10:12 Admission Status [Patient Status] [ADT] Stat - Assessment/Plan Last 24 Hours: My Active Orders 08/12/20 Breakfast Nothing Per Oral Diet [DIET] 08/12/20 07:54 Pulse Oximetry [RC] ASDIRECTED Sodium Chloride 0.9% [Saline Flush] 10 ml FLUSH ASDIRECTED PRN Sodium Chloride 0.9% [Saline Flush] 2.5 ml FLUSH ASDIRECTED PRN Saline Lock Insert [OM.PC] Stat 08/12/20 10:10 CORONAVIRUS COVID-19 SD [MOLEC] Stat 08/12/20 10:12 Admission Status [Patient Status] [ADT] Stat
[2020-08-12] MEDS ORDERED: Metoclopramide 10 MG/2 ML SDV IVPUSH ONE (08:38)
[2020-08-12 08:40] LABS: BLOOD UREA NITROGEN,BUN 4 mg/dL (7.0-18.0); CARBON DIOXIDE,CO2 22.9 mmol/L (21.0-32.0); CHLORIDE,CL 104 mmol/L (98-107); GLUCOSE RANDOM 90 mg/dL (74-106); POTASSIUM,K 3.4 mmol/L (3.5-5.1); SODIUM,NA 141 mmol/L (136-145)
--- NOTE | 2020-08-12 09:29 | CT ---
INDICATION: Right lower quadrant pain. Suspect appendicitis versus stone TECHNIQUE: CT of abdomen and pelvis performed without oral IV contrast due to patient reported previous severe reaction to IV contrast aspect. FINDINGS: Moderate vascular calcifications in the abdomen and pelvis. Linear atelectasis or scarring in the lower lungs greatest in the right middle lobe posteriorly. Heterogeneous moderately prominent abnormal density throughout the liver consistent combination of moderately severe fatty infiltration of liver with areas of focal fatty sparing. No renal or ureteral calculi. Small amount of fluid density and lower central uterus and endocervix could be could be related fluid in the endometrial canal and endocervix or thickening of the structures. Minimal stranding in the perirectal and left colon regions. Increased number of small nonenlarged lymph nodes in the abdomen pelvis nonspecific. The appendix is mildly dilated at 8-9 findings borders are indistinct with fluid and inflammatory stranding in the fat posterior to the cecum and about the appendix. There are diverticula involving the cecum. Wall of the cecum in the region of the diverticula is somewhat thickened. Fascia plane thickening in this region. Findings would favor an acute appendicitis given the dilatation of the appendix. Differential consideration would be inflammatory changes related to right-sided colonic diverticula extending to the periappendiceal region. The former should be excluded. Reactive right lower quadrant lymph nodes. Remainder negative. Impression : 1. Acute inflammatory stranding in the right lower quadrant fat about the cecum and appendix with a small amount of fluid in the pericecal and periappendiceal regions. Appendix is mildly dilated and its borders are indistinct. Right-sided colonic diverticula with wall thickening involving portions of the sigmoid colon. Findings would favor acute appendicitis over right-sided diverticulitis with inflammatory changes extending to the appendiceal regions. Appendicitis is favored due to the fluid and stranding being most prominent around the appendix and the fact that the appendix is dilated. No free air or abscess. 2. Increased fluid density in the lower endometrial caudal and endocervix could be correlated pelvic ultrasound. 3. Heterogeneous fatty infiltration of liver. Other findings as above. Please note that all CT scans at this facility use dose modulation, iterative reconstruction, and/or weight-based dosing when appropriate to reduce radiation dose to as low as reasonably achievable. Dictated by Jessee Holguin MD @ Aug 12 2020 9:24AM Signed by Dr. Jessee Holguin @ Aug 12 2020 9:27AM
--- NOTE | 2020-08-12 11:14 | PCM.CONS ---
H&P History of Present Illness - General Date of Service: 08/12/20 Admit Problem/Dx: Admission Diagnosis/Problem Admission Diagnosis/Problem Acute appendicitis Right lower quadrant pain with nausea and anorexia. No vomiting. Source of Information: Patient History Limitations: Reports: No Limitations - History of Present Illness Initial Comments - Free Text/Narative: Patient is a 45-year-old female who presented to the emergency room today complaining of right-sided abdominal pain. She was discharged from the hospital 2-3 days ago following an episode of pyelonephritis. She was being treated with outpatient antibiotics. Thursday morning she developed onset of right-sided abdominal pain that has become progressively more intense. This is associated with nausea but no vomiting. She says her appetite is poor, although she did have some liquids earlier this morning. She denies any fever or chills. She also notes pain on ambulation and is unable to stand straight up when she walks. Symptom Onset Date: 08/11/20 Duration of Symptoms: Reports: Day(s): Location: Reports: Abdomen (Right lower quadrant) Quality: Reports: Pressure, Sharp Severity: Moderate Improves with: Reports: Rest Worsens with: Reports: Eating, Movement Context: Reports: Sick Contact Associated Symptoms: Reports: Loss of Appetite, Nausea/Vomiting (No vomiting) Right Lower Abdomen Pain Score (Numeric/FACES): 7 - Related Data Allergies/Adverse Reactions: Allergies Allergy/AdvReac Type Severity Reaction Status Date / Time Penicillins Allergy Vomiting Verified 08/12/20 07:08 Home Medications: Home Meds Promethazine [Phenergan] 10 mg PO ASDIRECTED PRN 03/13/19 [History] Ondansetron [Zofran ODT] 8 mg PO Q6H PRN 08/10/20 [History] levoFLOXacin [Levaquin] 750 mg PO DAILY #5 tab 08/10/20 [Rx] Past Medical History HEENT History: Reports: Impaired Vision, Other (See Below) Other HEENT History: wears glasses Cardiovascular History: Reports: Blood Clots/VTE/DVT, Hypertension Other Cardiovascular History: PE, Seepsis Respiratory History: Reports: PE Gastrointestinal History: Reports: None Genitourinary History: Reports: UTI, Recurrent Other Genitourinary History: anorexia [employer] History: Reports: None Musculoskeletal History: Reports: None Neurological History: Reports: None Psychiatric History: Reports: Anxiety Endocrine/Metabolic History: Reports: None Hematologic History: Reports: Other (See Below) Other Hematologic History: sepsis Immunologic History: Reports: None Oncologic (Cancer) History: Reports: None Dermatologic History: Reports: None, Other (See Below) Other Dermatologic History: DVT - Infectious Disease History Infectious Disease History: Reports: None Other Infectious Disease History: sepsis - Past Surgical History Head Surgeries/Procedures: Reports: None HEENT Surgical History: Reports: None Cardiovascular Surgical History: Reports: None Respiratory Surgical History: Reports: None GI Surgical History: Reports: None Female Surgical History: Reports: None Endocrine Surgical History: Reports: None Neurological Surgical History: Reports: None Musculoskeletal Surgical History: Reports: None Oncologic Surgical History: Reports: None Dermatological Surgical History: Reports: None Social & Family History - Family History Family Medical History: Noncontributory - Tobacco Use Smoking Status *Q: Current Every Day Smoker Years of Tobacco use: 20 Packs/Tins Daily: 1 - Caffeine Use Caffeine Use: Reports: Coffee, Tea - Recreational Drug Use Recreational Drug Use: No H&P Review of Systems - Review of Systems: Review Of Systems: See Below General: Reports: Decreased Appetite. Denies: Fever, Chills, Malaise HEENT: Reports: No Symptoms Pulmonary: Denies: Shortness of Breath, Wheezing Cardiovascular: Denies: Chest Pain, Palpitations Gastrointestinal: Reports: Abdominal Pain, Anorexia, Flatus, Nausea. Denies: Black Stool, Bloody Stool, Constipation, Diarrhea, Decreased Appetite, Hematemesis, Vomiting Genitourinary: Denies: Dysuria, Frequency, Burning, Pain, Urgency Musculoskeletal: Reports: No Symptoms Skin: Reports: No Symptoms Psychiatric: Reports: Anxiety. Denies: Confusion, Depression Neurological: Reports: No Symptoms Hematologic/Lymphatic: Reports: No Symptoms Immunologic: Reports: Other (States she is allergic to penicillin. This causes nausea. No skin rash or respiratory problems.) Exam - Exam Exam: See Below - Vital Signs Vital Signs: Last Vital Signs Temp 97.9 F 08/12/20 10:03 Pulse 91 08/12/20 10:03 Resp 20 08/12/20 10:03 BP 169/120 H 08/12/20 10:03 Pulse Ox 95 08/12/20 10:03 Weight: 133 lb - Exam Quality Assessment: No: Supplemental Oxygen, Central Line/PICC, Urinary Catheter General: Alert, Oriented, Cooperative, Moderate Distress HEENT: Conjunctiva Clear, Nares Patent, Pupils Equal, Pupils Reactive. No: Scleral Icterus Neck: Supple, Trachea Midline Lungs: Clear to Auscultation, Normal Respiratory Effort. No: Wheezing Cardiovascular: Regular Rate, Regular Rhythm. No: Tachycardia GI/Abdominal Exam: Normal Bowel Sounds, Soft, No Distention, Rebound, Tender (Right lower quadrant over McBurney's point). No: Guarding, Rigid (Female) Exam: Deferred Rectal (Female) Exam: Deferred Back Exam: Normal Inspection, Full Range of Motion Extremities: Normal Inspection, Normal Range of Motion, Normal Capillary Refill Peripheral Pulses: 4+: Posterior Tibial (L), Posterior Tibial (R), Dorsalis Pedis (L), Dorsalis Pedis (R) Skin: Warm, Dry, Intact Neurological: Cranial Nerves Intact, Reflexes Equal Bilateral Psychiatric: Alert, Normal Affect, Normal Mood, Anxious - Patient Data Lab Results Last 24 hrs: Laboratory Results - last 24 hr 08/12/20 08/12/20 08/12/20 Range/Units 08:00 08:00 08:08 WBC 9.53 (4.0-11.0) K/uL RBC 3.66 L (4.30-5.90) M/uL Hgb 13.9 (12.0-16.0) g/dL Hct 40.6 (36.0-46.0) % MCV 110.9 H (80.0-98.0) fL MCH 38.0 H (27.0-32.0) pg MCHC 34.2 (31.0-37.0) g/dL RDW Std Deviation 59.9 (28.0-62.0) fl RDW Coeff of Sobia 15 (11.0-15.0) % Plt Count 268 (150-400) K/uL MPV 9.30 (7.40-12.00) fL Neut % (Auto) 68.2 (48.0-80.0) % Lymph % (Auto) 20.3 (16.0-40.0) % [place] % (Auto) 10.6 (0.0-15.0) % Eos % (Auto) 0.7 (0.0-7.0) % Baso % (Auto) 0.2 (0.0-1.5) % Neut # (Auto) 6.5 H (1.4-5.7) K/uL Lymph # (Auto) 1.9 (0.6-2.4) K/uL [place] # (Auto) 1.0 H (0.0-0.8) K/uL Eos # (Auto) 0.1 (0.0-0.7) K/uL Baso # (Auto) 0.0 (0.0-0.1) K/uL Nucleated RBC % 0.0 /100WBC Nucleated RBCs # 0 K/uL Lactate (0.20-2.00) mmol/L Sodium (136-145) mmol/L Potassium (3.5-5.1) mmol/L Chloride (98-107) mmol/L Carbon Dioxide (21.0-32.0) mmol/L BUN (7.0-18.0) mg/dL Creatinine (0.6-1.0) mg/dL Est Cr Clr Drug Dosing mL/min Estimated GFR (MDRD) ml/min Glucose (74-106) mg/dL Calcium (8.5-10.1) mg/dL Total Bilirubin (0.2-1.0) mg/dL AST (15-37) IU/L ALT (14-63) IU/L Alkaline Phosphatase (46-116) U/L Total Protein (6.4-8.2) g/dL Albumin (3.4-5.0) g/dL Globulin (2.6-4.0) g/dL Albumin/Globulin Ratio (0.9-1.6) Urine Color YELLOW Urine Appearance SLT CLOUDY Urine pH 6.0 (5.0-8.0) Ur Specific [place] >= 1.030 (1.001-1.035) Urine Protein NEGATIVE (NEGATIVE) mg/dL Urine Glucose (UA) NEGATIVE (NEGATIVE) mg/dL Urine Ketones NEGATIVE (NEGATIVE) mg/dL Urine Occult Blood TRACE-INTACT H (NEGATIVE) Urine Nitrite NEGATIVE (NEGATIVE) Urine Bilirubin NEGATIVE (NEGATIVE) Urine Urobilinogen 0.2 (<2.0) EU/dL Ur Leukocyte Esterase TRACE H (NEGATIVE) Urine RBC 0-2 (0-2/HPF) Urine WBC 0-2 (0-5/HPF) Ur Epithelial Cells FEW (NONE-FEW) Calcium Oxalate Crystal FEW (NEGATIVE) Amorphous Sediment LIGHT (NEGATIVE) Urine Bacteria FEW (NEGATIVE) Urine Mucus LIGHT (NONE-MOD) Urine HCG, Qual NEGATIVE (NEGATIVE) 08/12/20 08/12/20 Range/Units 08:08 08:08 WBC (4.0-11.0) K/uL RBC (4.30-5.90) M/uL Hgb (12.0-16.0) g/dL Hct (36.0-46.0) % MCV (80.0-98.0) fL MCH (27.0-32.0) pg MCHC (31.0-37.0) g/dL RDW Std Deviation (28.0-62.0) fl RDW Coeff of S[place] (11.0-15.0) % Plt Count (150-400) K/uL MPV (7.40-12.00) fL Neut % (Auto) (48.0-80.0) % Lymph % (Auto) (16.0-40.0) % [place] % (Auto) (0.0-15.0) % Eos % (Auto) (0.0-7.0) % Baso % (Auto) (0.0-1.5) % Neut # (Auto) (1.4-5.7) K/uL Lymph # (Auto) (0.6-2.4) K/uL [place] # (Auto) (0.0-0.8) K/uL Eos # (Auto) (0.0-0.7) K/uL Baso # (Auto) (0.0-0.1) K/uL Nucleated RBC % /100WBC Nucleated RBCs # K/uL Lactate 1.6 (0.20-2.00) mmol/L Sodium 141 (136-145) mmol/L Potassium 3.4 L (3.5-5.1) mmol/L Chloride 104 (98-107) mmol/L Carbon Dioxide 22.9 (21.0-32.0) mmol/L BUN 4 L (7.0-18.0) mg/dL Creatinine 0.6 (0.6-1.0) mg/dL Est Cr Clr Drug Dosing 111.58 mL/min Estimated GFR (MDRD) > 60.0 ml/min Glucose 90 (74-106) mg/dL Calcium 8.4 L (8.5-10.1) mg/dL Total Bilirubin 0.2 (0.2-1.0) mg/dL AST 92 H (15-37) IU/L ALT 78 H (14-63) IU/L Alkaline Phosphatase 152 H (46-116) U/L Total Protein 6.5 (6.4-8.2) g/dL Albumin 3.0 L (3.4-5.0) g/dL Globulin 3.5 (2.6-4.0) g/dL Albumin/Globulin Ratio 0.9 (0.9-1.6) Urine Color Urine Appearance Urine pH (5.0-8.0) Ur Specific [place] (1.001-1.035) Urine Protein (NEGATIVE) mg/dL Urine Glucose (UA) (NEGATIVE) mg/dL Urine Ketones (NEGATIVE) mg/dL Urine Occult Blood (NEGATIVE) Urine Nitrite (NEGATIVE) Urine Bilirubin (NEGATIVE) Urine Urobilinogen (<2.0) EU/dL Ur Leukocyte Esterase (NEGATIVE) Urine RBC (0-2/HPF) Urine WBC (0-5/HPF) Ur Epithelial Cells (NONE-FEW) Calcium Oxalate Crystal (NEGATIVE) Amorphous Sediment (NEGATIVE) Urine Bacteria (NEGATIVE) Urine Mucus (NONE-MOD) Urine HCG, Qual (NEGATIVE) Result Diagrams: 08/12/20 08:08 08/12/20 08:08 Imaging Impressions Last 24 hrs: CT scan has been personally reviewed, and the report. Discussed with the interpreting radiologist. There are mild inflammatory changes in the area of the appendix. She is noted to have cecal diverticulitis, but there does not appear to be any direct inflammatory component to the cecum. There was no free air nor any fluid collection. The interpretation favors appendicitis over cecal diverticulitis. Sepsis Event Note - Evaluation Sepsis Screening Result: No Definite Risk - Focused Exam Vital Signs: Vital Signs Temp Pulse Resp BP Pulse Ox 08/12/20 10:03 97.9 F 91 20 169/120 H 95 08/12/20 09:23 92 174/90 H 95 08/12/20 08:22 99 16 115/94 H 94 L 08/12/20 07:08 98.2 F 106 H 20 136/74 94 L Consult PN Assessment/Plan Procedures: Procedures ASSAY CARBOXYHB QUANT (11/20/18) ASSAY OF LACTIC ACID (08/05/20) ASSAY OF MAGNESIUM (08/05/20) ASSAY OF TROPONIN QUANT (08/05/20) COMPLETE CBC W/AUTO DIFF WBC (08/05/20) COMPREHEN METABOLIC PANEL (08/05/20) CT HEAD/BRAIN W/O DYE (11/16/18) DRUG TEST PRSMV DIR OPT OBS (08/17/18) ELECTROCARDIOGRAM TRACING (08/05/20) EMERGENCY DEPT VISIT (08/05/20) EMERGENCY DEPT VISIT (04/05/20) EMERGENCY DEPT VISIT (10/27/19) EMERGENCY DEPT VISIT (11/16/18) EXTREMITY STUDY (04/05/20) FIBRIN DEGRADATION QUANT (08/17/18) HYDRATE IV INFUSION ADD-ON (08/05/20) INFLUENZA ASSAY W/OPTIC (10/27/19) MICROBE SUSCEPTIBLE VY (11/16/18) PROTHROMBIN TIME (08/17/18) ROUTINE VENIPUNCTURE (08/05/20) SARS-COV2 COVID-19 AMP PRB (08/05/20) THER/PROPH/DIAG INJ IV PUSH (10/27/19) THER/PROPH/DIAG IV INF INIT (08/05/20) TX/PRO/DX INJ NEW DRUG ADDON (08/05/20) TX/PRO/DX INJ SAME DRUG GUEST ASSOCIATE (08/05/20) TX/PROPH/DG ADDL SEQ IV INF (08/05/20) URINALYSIS AUTO W/SCOPE (08/05/20) URINE BACTERIA CULTURE (11/16/18) URINE CULTURE/COLONY COUNT (11/16/18) URINE TEST (11/20/18) X-RAY EXAM CHEST 1 VIEW (08/05/20) X-RAY EXAM OF SHOULDER (03/13/19) (1) Right lower quadrant abdominal pain SNOMED Code(s): 108441629 Code(s): R10.31 - RIGHT LOWER QUADRANT PAIN Priority: High Current Visit: Yes (2) Diverticulosis of colon SNOMED Code(s): 919141204, 636741097 Code(s): K57.30 - DVRTCLOS OF LG INT W/O PERFORATION OR ABSCESS W/O BLEEDING Priority: Low Current Visit: Yes (3) Appendicitis SNOMED Code(s): 15797240 Code(s): K37 - UNSPECIFIED APPENDICITIS Priority: High Current Visit: Yes Qualifiers: Appendicitis type: acute appendicitis Acute appendicitis type: unspecified acute appendicitis type Qualified Code(s): K35.80 - Unspecified acute appendicitis Problem List Initiated/Reviewed/Updated: Yes My Orders Last 24 Hours: My Active Orders 08/12/20 Lunch Nothing Per Oral Diet [DIET] 08/12/20 11:06 Resuscitation Status Routine 08/12/20 11:07 Antiembolic Devices [RC] PER UNIT ROUTINE Insert Urinary Catheter [OM.PC] Timed Oxygen Therapy [RC] ASDIRECTED RT Incentive Spirometry [RC] Q1HWA Skin Preparation [RC] .PREOP Urinary Catheter Assessment [RC] ASDIRECTED Urinary Catheter Assessment [RC] ASDIRECTED Urinary Catheter Assessment [RC] ASDIRECTED Vital Signs [RC] PER UNIT ROUTINE Antiembolic Hose [OM.PC] Routine 08/12/20 11:15 Lactated Ringers @ 125 MLS/HR(1000ml) Lactated Ringers [Ringers, Lactated] 1,000 ml IV ASDIRECTED cefOXitin [Mefoxin in Dextrose,Iso-Osm 1 GM/50 ML] 1 gm Premix Bag 1 bag IV Q6H Plan: Clinically, the diagnosis fits appendicitis, more likely than cecal diverticulitis. Both entities have been discussed with the patient including the possibility that this could indeed be cecal diverticulitis, which might require a larger operation than laparoscopic or open appendectomy. Laparoscopic appendectomy, possible open appendectomy. Both operative procedures, along with the risks, including, but not limited to, bleeding, infection, pneumonia, deep venous thrombosis, pulmonary emboli, myocardial infarction, and adjacent organ injury have been reviewed with the patient who voices understanding, offers no questions and agrees to proceed. Patient has been informed about the potential for an open appendectomy or laparotomy if inde ed this is a cecal diverticulitis. She states she understands. Questions have been answered. She wishes to proceed.
[2020-08-12] MEDS ORDERED: Lactated Ringers 1,000 ML IV SCH ×2 (11:15→13:45)
[2020-08-12] MEDS ORDERED: Midazolam 1 MG/ML 2 ML SDV ONE (11:20)
[2020-08-12] MEDS ORDERED: Propofol 200 MG/20 ML SDV ONE (11:20)
[2020-08-12] MEDS ORDERED: ceFAZolin 1 GM Vial ONE (11:20)
[2020-08-12] MEDS ORDERED: Bupivacaine 0.5% 30 ML SDV ONE (11:20)
[2020-08-12] MEDS ORDERED: fentaNYL 250 MCG/5 ML SDV ONE (11:20)
[2020-08-12] MEDS ORDERED: Succinylcholine/Sod PF 100 MG/5 ML SYRINGE IV ONE (11:22)
[2020-08-12] MEDS ORDERED: Rocuronium Bromide 50 MG/5 ML Syringe ONE (11:22)
[2020-08-12] MEDS ORDERED: Scopolamine 1.5 MG Transdermal Patch ONE (11:45)
[2020-08-12] MEDS ORDERED: Ondansetron 4 MG/2 ML SDV ONE (12:14)
[2020-08-12] MEDS ORDERED: Dexamethasone 4 MG/ML 5 ML MDV ONE (12:14)
--- NOTE | 2020-08-12 12:40 | PCM.PREANE ---
Preanesthetic Assessment - Procedure Proposed Procedure: Laparoscopic Appendectomy - Anesthesia/Transfusion/Family Hx Anesthesia History: Prior Anesthesia Reaction Transfusion History: No Prior Transfusion(s) - Review of Systems General: No Symptoms Pulmonary: No Symptoms Cardiovascular: No Symptoms Gastrointestinal: No Symptoms Neurological: No Symptoms Other: Reports: None - Physical Assessment NPO Status Date: 08/12/20 NPO Status Time: 06:30 (Water at 0630, Solids before midnight) Vital Signs: Last Vital Signs Temp 36.6 C 08/12/20 10:03 Pulse 91 08/12/20 10:03 Resp 20 08/12/20 10:03 BP 169/120 H 08/12/20 10:03 Pulse Ox 95 08/12/20 10:03 Height: 5 ft 9 in Weight: 60.328 kg ASA Class: 2E Mental Status: Alert & Oriented x3 (Very anxious. Tearful at times.) Airway Class: Mallampati = 2 Dentition: Reports: Broken Tooth/Teeth, Caries (Poor dentition. Some loose.) Thyro-Mental Finger Breadths: 3 Mouth Opening Finger Breadths: 3 ROM/Head Extension: Full Lungs: Clear to Auscultation, Normal Respiratory Effort Cardiovascular: Regular Rate, Regular Rhythm - Lab Values: Laboratory Last Values WBC 9.53 K/uL (4.0-11.0) 08/12/20 08:08 RBC 3.66 M/uL (4.30-5.90) L 08/12/20 08:08 Hgb 13.9 g/dL (12.0-16.0) 08/12/20 08:08 Hct 40.6 % (36.0-46.0) 08/12/20 08:08 MCV 110.9 fL (80.0-98.0) H 08/12/20 08:08 MCH 38.0 pg (27.0-32.0) H 08/12/20 08:08 MCHC 34.2 g/dL (31.0-37.0) 08/12/20 08:08 RDW Std Deviation 59.9 fl (28.0-62.0) 08/12/20 08:08 RDW Coeff of Sobia 15 % (11.0-15.0) 08/12/20 08:08 Plt Count 268 K/uL (150-400) 08/12/20 08:08 MPV 9.30 fL (7.40-12.00) 08/12/20 08:08 Neut % (Auto) 68.2 % (48.0-80.0) 08/12/20 08:08 Lymph % (Auto) 20.3 % (16.0-40.0) 08/12/20 08:08 [place] % (Auto) 10.6 % (0.0-15.0) 08/12/20 08:08 Eos % (Auto) 0.7 % (0.0-7.0) 08/12/20 08:08 Baso % (Auto) 0.2 % (0.0-1.5) 08/12/20 08:08 Neut # (Auto) 6.5 K/uL (1.4-5.7) H 08/12/20 08:08 Lymph # (Auto) 1.9 K/uL (0.6-2.4) 08/12/20 08:08 [place] # (Auto) 1.0 K/uL (0.0-0.8) H 08/12/20 08:08 Eos # (Auto) 0.1 K/uL (0.0-0.7) 08/12/20 08:08 Baso # (Auto) 0.0 K/uL (0.0-0.1) 08/12/20 08:08 Nucleated RBC % 0.0 /100WBC 08/12/20 08:08 Nucleated RBCs # 0 K/uL 08/12/20 08:08 Lactate 1.6 mmol/L (0.20-2.00) 08/12/20 08:08 Sodium 141 mmol/L (136-145) 08/12/20 08:08 Potassium 3.4 mmol/L (3.5-5.1) L 08/12/20 08:08 Chloride 104 mmol/L (98-107) 08/12/20 08:08 Carbon Dioxide 22.9 mmol/L (21.0-32.0) 08/12/20 08:08 BUN 4 mg/dL (7.0-18.0) L 08/12/20 08:08 Creatinine 0.6 mg/dL (0.6-1.0) 08/12/20 08:08 Est Cr Clr Drug Dosing 111.58 mL/min 08/12/20 08:08 Estimated GFR (MDRD) > 60.0 ml/min 08/12/20 08:08 Glucose 90 mg/dL (74-106) 08/12/20 08:08 Calcium 8.4 mg/dL (8.5-10.1) L 08/12/20 08:08 Total Bilirubin 0.2 mg/dL (0.2-1.0) 08/12/20 08:08 AST 92 IU/L (15-37) H 08/12/20 08:08 ALT 78 IU/L (14-63) H 08/12/20 08:08 Alkaline Phosphatase 152 U/L (46-116) H 08/12/20 08:08 Total Protein 6.5 g/dL (6.4-8.2) 08/12/20 08:08 Albumin 3.0 g/dL (3.4-5.0) L 08/12/20 08:08 Globulin 3.5 g/dL (2.6-4.0) 08/12/20 08:08 Albumin/Globulin Ratio 0.9 (0.9-1.6) 08/12/20 08:08 Urine Color YELLOW 08/12/20 08:00 Urine Appearance SLT CLOUDY 08/12/20 08:00 Urine pH 6.0 (5.0-8.0) 08/12/20 08:00 Ur Specific [place] >= 1.030 (1.001-1.035) 08/12/20 08:00 Urine Protein NEGATIVE mg/dL (NEGATIVE) 08/12/20 08:00 Urine Glucose (UA) NEGATIVE mg/dL (NEGATIVE) 08/12/20 08:00 Urine Ketones NEGATIVE mg/dL (NEGATIVE) 08/12/20 08:00 Urine Occult Blood TRACE-INTACT (NEGATIVE) H 08/12/20 08:00 Urine Nitrite NEGATIVE (NEGATIVE) 08/12/20 08:00 Urine Bilirubin NEGATIVE (NEGATIVE) 08/12/20 08:00 Urine Urobilinogen 0.2 EU/dL (<2.0) 08/12/20 08:00 Ur Leukocyte Esterase TRACE (NEGATIVE) H 08/12/20 08:00 Urine RBC 0-2 (0-2/HPF) 08/12/20 08:00 Urine WBC 0-2 (0-5/HPF) 08/12/20 08:00 Ur Epithelial Cells FEW (NONE-FEW) 08/12/20 08:00 Calcium Oxalate Crystal FEW (NEGATIVE) 08/12/20 08:00 Amorphous Sediment LIGHT (NEGATIVE) 08/12/20 08:00 Urine Bacteria FEW (NEGATIVE) 08/12/20 08:00 Urine Mucus LIGHT (NONE-MOD) 08/12/20 08:00 Urine HCG, Qual NEGATIVE (NEGATIVE) 08/12/20 08:00 SARS-CoV-2 RNA (SD) NEGATIVE (NEGATIVE) 08/12/20 10:10 - Allergies Allergies/Adverse Reactions: Allergies Allergy/AdvReac Type Severity Reaction Status Date / Time Penicillins Allergy Vomiting Verified 08/12/20 07:08 - Anesthesia Plan Free Text/Narrative:: GETA Pre-Op Medication Ordered: Other (Scopalomine patch for hx PONV) - Acknowledgements Anesthesia Type Planned: General Anesthesia Pt an Appropriate Candidate for the Planned Anesthesia: Yes Alternatives and Risks of Anesthesia Discussed w Pt/Guardian: Yes Pt/Guardian Understands and Agrees with Anesthesia Plan: Yes PreAnesthesia Questionnaire HEENT History: Reports: Impaired Vision, Other (See Below) Other HEENT History: wears glasses Cardiovascular History: Reports: Blood Clots/VTE/DVT, Hypertension Other Cardiovascular History: PE, Sepsis Respiratory History: Reports: PE Other Respiratory History: Bilateral PE 7 yrs ago, DVT after non-surgical leg injury Gastrointestinal History: Reports: GERD Other Gastrointestinal History: GERD food related Genitourinary History: Reports: Pyelonephritis, UTI, Recurrent Other Genitourinary History: pylonepritis recently with admission within the past week. Recurrent UTI's. CONTACT ASSEMBLER History: Reports: None Musculoskeletal History: Reports: None Neurological History: Reports: None Psychiatric History: Reports: Anxiety, Depression (Currently very anxious and concerned. Patient reports hx of depression.) Endocrine/Metabolic History: Reports: None Other Endocrine/Metabolic History: Anorexia Hematologic History: Reports: Other (See Below) Other Hematologic History: sepsis Immunologic History: Reports: None Oncologic (Cancer) History: Reports: None Dermatologic History: Reports: None, Other (See Below) Other Dermatologic History: DVT - Infectious Disease History Infectious Disease History: Reports: None Other Infectious Disease History: sepsis - Past Surgical History Head Surgeries/Procedures: Reports: None HEENT Surgical History: Reports: None Cardiovascular Surgical History: Reports: None Respiratory Surgical History: Reports: None GI Surgical History: Reports: None Other Female Surgeries/Procedures: Right Breast Abcess Endocrine Surgical History: Reports: None Neurological Surgical History: Reports: None Musculoskeletal Surgical History: Reports: Arthroscopic Knee Other Musculoskeletal Surgeries/Procedures:: Right knee scope Oncologic Surgical History: Reports: None Dermatological Surgical History: Reports: None Other Surgical History Comment: EDG/Colonoscopy - SUBSTANCE USE Smoking Status *Q: Current Every Day Smoker (1ppd+) Number of Drinks Per Day: 4 (reports 3-4 glasses of wine daily) Date of Last Drink: 08/11/20 Recreational Drug Use History: No - HOME MEDS Home Medications: Home Meds Promethazine [Phenergan] 10 mg PO ASDIRECTED PRN 03/13/19 [History] Ondansetron [Zofran ODT] 8 mg PO Q6H PRN 08/10/20 [History] levoFLOXacin [Levaquin] 750 mg PO DAILY #5 tab 08/10/20 [Rx] - CURRENT (IN HOUSE) MEDS Current Meds: Current Medications Lactated Ringer's (Ringers, Lactated) 1,000 mls @ 125 mls/hr IV ASDIRECTED NEVA Cefoxitin Sodium 1 gm/ Premix 50 mls @ 100 mls/hr IV Q6H NEVA Sodium Chloride (Saline Flush) 10 ml FLUSH ASDIRECTED PRN PRN Reason: Keep Vein Open Last Admin: 08/12/20 08:12 Dose: 10 ml Documented by: Sodium Chloride (Saline Flush) 2.5 ml FLUSH ASDIRECTED PRN PRN Reason: Keep Vein Open Last Admin: 08/12/20 08:12 Dose: 2.5 ml Documented by: Discontinued Medications Bupivacaine HCl (Marcaine 0.5%) Confirm Administered Dose 30 ml .ROUTE .STK-MED ONE Stop: 08/12/20 11:21 Cefazolin Sodium (Ancef) Confirm Administered Dose 1 gm .ROUTE .STK-MED ONE Stop: 08/12/20 11:21 Dexamethasone (Dexamethasone) Confirm Administered Dose 20 mg .ROUTE .STK-MED ONE Stop: 08/12/20 12:15 Fentanyl (Fentanyl) 75 mcg IVPUSH ONETIME ONE Stop: 08/12/20 07:55 Last Admin: 08/12/20 08:12 Dose: 75 mcg Documented by: Fentanyl (Sublimaze) Confirm Administered Dose 250 mcg .ROUTE .STK-MED ONE Stop: 08/12/20 11:21 Lactated Ringer's (Ringers, Lactated) 1,000 mls @ 999 mls/hr IV .BOLUS ONE Stop: 08/12/20 08:54 Last Admin: 08/12/20 08:12 Dose: 999 mls/hr Documented by: Metoclopramide HCl (Reglan) 5 mg IVPUSH ONETIME ONE Stop: 08/12/20 08:39 Last Admin: 08/12/20 09:05 Dose: 5 mg Documented by: Midazolam HCl (Versed 1 Mg/Ml) Confirm Administered Dose 2 mg .ROUTE .STK-MED ON E Stop: 08/12/20 11:21 Ondansetron HCl (Zofran) 4 mg IVPUSH ONETIME ONE Stop: 08/12/20 07:55 Last Admin: 08/12/20 08:12 Dose: 4 mg Documented by: Ondansetron HCl (Zofran) Confirm Administered Dose 4 mg .ROUTE .STK-MED ONE Stop: 08/12/20 12:15 Propofol (Diprivan 20 Ml) Confirm Administered Dose 400 mg .ROUTE .STK-MED ONE Stop: 08/12/20 11:21 Rocuronium [place] (Rocuronium [place]) Confirm Administered Dose 50 mg .ROUTE .STK-MED ONE Stop: 08/12/20 11:23 Scopolamine (Transderm-Scop) Confirm Administered Dose 1.5 mg .ROUTE .STK-MED ONE Stop: 08/12/20 11:46
[2020-08-12] MEDS ORDERED: Ketorolac 30 MG/ML SDV ONE (12:54)
[2020-08-12] MEDS ORDERED: Glycopyrrolate 0.2 MG/ML SDV ONE (13:01)
[2020-08-12] MEDS ORDERED: Acetaminophen 1,000 MG in Premix Bag 1 BAG IV ONE (13:26)
[2020-08-12] MEDS ORDERED: Promethazine 25 MG/ML SDV IM ONE (13:26)
[2020-08-12] MEDS ORDERED: Ondansetron 4 MG/2 ML SDV IV ONE (13:35)
[2020-08-12] MEDS ORDERED: Morphine 10 MG/ML Syringe IVPUSH PRN (13:35)
[2020-08-12] MEDS ORDERED: Acetaminophen 325 MG Tab PO PRN (13:35)
--- NOTE | 2020-08-12 13:39 | PCM.OPNOTE ---
- General Post-Op/Procedure Note Date of Surgery/Procedure: 08/12/20 Operative Procedure(s): Laparoscopic appendectomy Pre Op Diagnosis: Acute abdomen. Right lower quadrant pain. Post-Op Diagnosis: Acute nonruptured appendicitis with localized peritonitis Anesthesia Technique: General ET Tube (ASA IIE) Primary Surgeon: Rk Norman Registered Nurse Teacher: Arnaud Sarabia Fluid Replacement, Intraop: 800 Output, Urine Amount: 60 EBL in mLs: 10 Condition: Good Free Text/Narrative:: Intake & Output 08/12/20 08/12/20 08/12/20 03:59 11:59 19:59 Output Total 60 Balance -60 DICTATION [id number] CPT CODE 93961
[2020-08-12] MEDS ORDERED: cefOXitin 1 GM in Premix Bag 1 BAG IV SCH (13:45)
--- NOTE | 2020-08-12 13:52 | PCM.POSTAN ---
POST ANESTHESIA ASSESSMENT - MENTAL STATUS Mental Status: Alert, Oriented - VITAL SIGNS Vital Signs: Last Vital Signs Temp 36.6 C 08/12/20 10:03 Pulse 91 08/12/20 10:03 Resp 20 08/12/20 10:03 BP 169/120 H 08/12/20 10:03 Pulse Ox 95 08/12/20 10:03 - RESPIRATORY Respiratory Status: Respiratory Rate WNL, Airway Patent, O2 Saturation Stable - CARDIOVASCULAR CV Status: Pulse Rate WNL, Blood Pressure Stable - GASTROINTESTINAL GI Status: No Symptoms - PAIN Pain Score: 5 (Patient drifts off to sleep easily.) - POST OP HYDRATION Hydration Status: Adequate & Stable - OBSERVATIONS Free Text/Narrative:: No anesthesia complications or concerns noted at this time.
--- NOTE | 2020-08-12 14:48 | OR ---
SURGEON: Rk Norman M.D. DATE OF PROCEDURE: 08/12/2020 OPERATION PERFORMED: Laparoscopic appendectomy. PRIMARY SURGEON: Rk Norman M.D. ROLLER LEVELER OPERATOR: registered nurse first assistant: ANDREW Benton student. ANESTHESIA: General endotracheal. ASA CLASSIFICATION: IIE. PREOPERATIVE DIAGNOSIS: Acute abdomen. POSTOPERATIVE DIAGNOSIS: Acute suppurative nonruptured appendicitis. ESTIMATED BLOOD LOSS: 10 mL. INTRAOPERATIVE FLUID REPLACEMENT: 800 mL of crystalloid. INTRAOPERATIVE URINARY OUTPUT: 60 mL. DESCRIPTION OF PROCEDURE: The patient was taken to the operating room and placed on the operating table in the supine position. Time-out was called for appropriate identification of patient and procedure. Monitored anesthesia care was provided. Time-out was called for appropriate identification of patient and procedure. SARS-CoV-2 virus swab was negative preoperatively. Following satisfactory attainment of general endotracheal anesthesia and with sequential compression boots in place, Lopez catheter was placed in the patient's urinary bladder. The abdomen was prepped with DuraPrep solution. Sterile drapes were applied. The skin above the umbilicus was infiltrated with 0.5% Marcaine solution. Skin incision was made and deepened through the subcutaneous tissue obtaining hemostasis with the use of electrocautery. The Veress needle was introduced into the peritoneal cavity. Saline drop test was positive. Carbon dioxide pneumoperitoneum was established with the release set at 13 cm of water. Once a satisfactory pneumoperitoneum was established, 5 mm camera and port were placed through the supraumbilical incision. Under camera vision and with the patient positioned with her head down and rolled to the left, 12 mm suprapubic and 5 mm left lower quadrant ports were placed. Each incision had preemptively been infiltrated with 0.5% Marcaine solution. The appendix was in a retrocecal position. Adhesions to the right abdominal sidewall were taken down with blunt dissection and the Harmonic scalpel. No significant bleeding was noted. The appendix was then able to be delivered and the mesoappendix was taken down with the Harmonic scalpel. The base of the appendix was doubly ligated with 0 PDS Endoloops. The appendix was then amputated and promptly placed in an Endopouch. The right lower quadrant was inspected for hemostasis and no bleeding was noted. The right lower quadrant was irrigated with sterile saline solution and all fluid was aspirated. The patient was now returned to a neutral position. Under camera vision, the 12 mm suprapubic and EndoCatch containing appendix was removed. Again, under camera vision, the 5 mm left lower quadrant port was removed and finally the supraumbilical camera port was removed. The wounds were inspected for hemostasis and no bleeding was noted. The suprapubic and supraumbilical incisions were closed in 2 layers approximating the subcutaneous tissue with 3-0 Vicryl and the skin with subcuticular 4-0 Monocryl. The left lower quadrant incision was closed with subcuticular 4-0 Monocryl. All incisions were Steri- Stripped and dressed with sterile Tegaderm pads. Sponge, needle, and instrument counts were all correct. Lopez catheter was removed prior to emergence from anesthesia. Following emergence from anesthesia and extubation, the patient was taken to recovery room in stable condition. MEREDITH BECKHAM /[id number]
[2020-08-12] MEDS: cefOXitin 1 GM in Premix Bag 1 BAG IV SCH ×3 (18:12→23:46)
[2020-08-12] MEDS: Nicotine 21 MG/24 Hr Patch TRDERM SCH (18:13)
[2020-08-12] MEDS: Ondansetron 4 MG/2 ML SDV IVPUSH PRN ×2 (18:28→21:18)
[2020-08-12] MEDS: Acetaminophen/HYDROcodone 325-5 MG Tab PO PRN (21:07)
[2020-08-13] MEDS: Ondansetron 4 MG/2 ML SDV IVPUSH PRN ×2 (04:04→08:55)
[2020-08-13] MEDS: cefOXitin 1 GM in Premix Bag 1 BAG IV SCH (04:15)
--- NOTE | 2020-08-13 07:20 | PCM48HPAN ---
Post Anesthesia Note - EVALUATION WITHIN 48HRS OF ANESTHETIC Vital Signs in Normal Range: Yes Patient Participated in Evaluation: Yes Respiratory Function Stable: Yes Airway Patent: Yes Cardiovascular Function Stable: Yes Hydration Status Stable: Yes Pain Control Satisfactory: Yes Nausea and Vomiting Control Satisfactory: Yes Mental Status Recovered: Yes Vital Signs: Last Vital Signs Temp 36.6 C 08/13/20 03:10 Pulse 53 L 08/13/20 03:10 Resp 17 08/13/20 03:10 BP 129/72 08/13/20 03:10 Pulse Ox 96 08/13/20 03:10 - COMMENTS/OBSERVATIONS Free Text/Narrative:: Patient doing well. No anesthesia complications or concerns noted.
[2020-08-13] MEDS: Acetaminophen/HYDROcodone 325-5 MG Tab PO PRN (08:55)
[2020-08-13] MEDS: Nicotine 21 MG/24 Hr Patch TRDERM SCH (08:57)
== END 2020-08-13 11:24 | disposition home or self-care (01) ==
LOC: MW.ED 06:55 → MW.SDS 11:05 → MW.MS 13:20 → MW.SDS 08-13 11:24
PROVIDERS: ATTEND Surgery
DX: K35.80 Unspecified acute appendicitis (principal); Z01.812 Encounter for preprocedural laboratory examination; Z20.828 Contact with and (suspected) exposure to other viral communicable diseases; I10 Essential (primary) hypertension; F17.210 Nicotine dependence, cigarettes, uncomplicated; K57.30 Diverticulosis of large intestine without perforation or abscess without bleeding; Z88.0 Allergy status to penicillin; Z79.899 Other long term (current) drug therapy
CPT/HCPCS: 36415; 44970; 74176; 80053; 81001; 81025; 83605; 85025; 87635; 88304; 96361; 96374; 96375; 99285; A9270; J0131; J0330; J0694; J1100; J1885; J2250; J2405; J2704; J2765; J3010; J3490; J7120; 00840; 99284; J0690; U0002

== ENCOUNTER 2021-02-19 21:07 | Emergency (ER) | payer SELFPAY ==
[2021-02-19] MEDS ORDERED: Ondansetron 4 MG/2 ML SDV IVPUSH ONE (21:39)
[2021-02-19] MEDS ORDERED: Sodium Chloride 0.9% 2.5 ML Syringe FLUSH PRN (21:39)
[2021-02-19] MEDS ORDERED: Sodium Chloride 0.9% 10 ML Syringe FLUSH PRN (21:39)
[2021-02-19] MEDS ORDERED: Pantoprazole 40 MG in Sodium Chloride 0.9% 10 ML IV ONE (21:41)
--- NOTE | 2021-02-19 21:43 | EDM.PDOC ---
ED HPI GENERAL MEDICAL PROBLEM - General Chief Complaint: Abdominal Pain Stated Complaint: VOMITTING, NAUSEA Time Seen by Provider: 02/19/21 21:31 - History of Present Illness INITIAL COMMENTS - FREE TEXT/NARRATIVE: History of present illness: The patient reports she had her appendix out 6 weeks ago. Since then she is constipated. She has increasing abdominal pain since then. She is vomiting everything. She feels as sharp unbearable pain. She has a colonoscopy scheduled 2 days from now but she says she cannot bear the pain. [] Review of systems: As per history of present illness and below otherwise all systems reviewed and negative. Past medical history: As per history of present illness and as reviewed below otherwise noncontributory. Surgical history: As per history of present illness and as reviewed below otherwise noncontributory. Social history: No reported history of drug or alcohol abuse. Family history: As per history of present illness and as reviewed below otherwise noncontributory. Physical exam: Constitutional - well developed, well-nourished and in no acute distress HEENT - normocephalic, no evidence of trauma - external nose and mouth normal - no mass in neck and no JVD - mucosae moist EYES - full EOM, PERRL, no icterus - no evidence of inflammation, injection, or drainage Respiratory - no respiratory distress, equal bilateral expansion, lungs clear to auscultation and no abnormal lung sounds Cardiovascular - Regular Rhythm with S1 and S2 appreciated and no murmur, gallop or rub. GI - abdomen soft without distension or organomegaly - normal bowel sounds - no guard or rebound Musculoskeletal no gross deformity of long bones or joints - no tenderness, swelling or edema Neurologic - Alert and oriented times four - CN II-XII grossly intact - motor sensory and coordination symmetrically normal Psychiatric - appropriate mood and affect with normal thought content Hematologic - No petechiae or purpura - mucosa appropriate color and sclera not pale - normal nail bed color and refill Integument - no rash or evidence of trauma - normal turgor Diagnostics: [] Therapeutics: [] Impression: [] Plan: [] Definitive disposition and diagnosis as appropriate pending reevaluation and review of above. Abdomen Pain Score (Numeric/FACES): 7 - Related Data Allergies Allergy/AdvReac Type Severity Reaction Status Date / Time Penicillins Allergy Vomiting Verified 02/19/21 21:36 Home Meds: Home Meds Ondansetron [Zofran ODT] 4 mg PO Q6H PRN 08/10/20 [History] ALPRAZolam [Xanax] 0.5 mg PO ASDIRECTED PRN 02/18/21 [History] Acetaminophen/HYDROcodone [[place] 325-10 MG] 1 tab PO Q4H PRN #10 tab 02/20/21 [Rx] Ondansetron [Zofran ODT] 4 mg PO Q6H PRN #10 tab.dis 02/20/21 [Rx] Past Medical History HEENT History: Reports: Other (See Below) Other HEENT History: wears glasses Cardiovascular History: Reports: Blood Clots/VTE/DVT, Hypertension Other Cardiovascular History: hx of hypertension in the past- no medications now Respiratory History: Reports: PE Other Respiratory History: 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 Recurrent UTI's. CANDY POLISHER History: Reports: None Musculoskeletal History: Reports: Fracture Other Musculoskeletal History: hx of fx back and toe- no hardware Neurological History: Reports: Other (See Below) Other Neuro History: hx of motion sickness and claustrophobia Psychiatric History: Reports: Anxiety Other Psychiatric History: occasionall takes Zanax Endocrine/Metabolic History: Reports: None Other Endocrine/Metabolic History: Anorexia Insulin Pump Model and Associate Entertainment Editor: None Hematologic History: Reports: None Other Hematologic History: sepsis Immunologic History: Reports: Other (See Below) Other Immunologic History: hx of sepsis x2 Oncologic (Cancer) History: Reports: None Dermatologic History: Reports: None Other Dermatologic History: DVT - Infectious Disease History Infectious Disease History: Reports: None Other Infectious Disease History: sepsis - Past Surgical History Head Surgeries/Procedures: Reports: None HEENT Surgical History: Reports: None Cardiovascular Surgical History: Reports: None Respiratory Surgical History: Reports: None GI Surgical History: Reports: Appendectomy, Colonoscopy Female Surgical History: Reports: Breast Biopsy Other Female Surgeries/Procedures: Right Breast Abcess Endocrine Surgical History: Reports: None Neurological Surgical History: Reports: None Musculoskeletal Surgical History: Reports: Arthroscopic Knee Other Musculoskeletal Surgeries/Procedures:: Right knee scope Oncologic Surgical History: Reports: None Dermatological Surgical History: Reports: None Social & Family History - Family History Family Medical History: No Pertinent Family History - Caffeine Use Caffeine Use: Reports: Coffee, Tea - Recreational Drug Use Recreational Drug Use: No ED ROS GENERAL - Review of Systems Review Of Systems: Comprehensive ROS is negative, except as noted in HPI. ED EXAM, GENERAL - Physical Exam Exam: See Below Free Text/Narrative:: My physical exam is in the HPI Course - Vital Signs Text/Narrative:: Patient seems somewhat improved but still felt poorly. She was discharged because a CT did not show any need for surgery or admission and she has colonoscopy scheduled on the . Last Recorded V/S: Last Vital Signs Temp 36.3 C 02/19/21 21:30 Pulse 82 02/19/21 23:15 Resp 18 02/19/21 23:15 BP 115/71 02/19/21 23:15 Pulse Ox 99 02/19/21 23:15 - Orders/Labs/Meds Orders: Active Orders 24 hr Category Date Time Status Communication Order [RC] STAT Care 02/19/21 21:55 Active Sodium Chloride 0.9% [Saline Flush] Med 02/19/21 21:39 Active 10 ml FLUSH ASDIRECTED PRN Sodium Chloride 0.9% [Saline Flush] Med 02/19/21 21:39 Active 2.5 ml FLUSH ASDIRECTED PRN Saline Lock Insert [OM.PC] Stat Oth 02/19/21 21:39 Ordered Medication Orders Sodium Chloride (Sodium Chloride 0.9% 10 Ml Syringe) 10 ml FLUSH ASDIRECTED PRN PRN Reason: Keep Vein Open Sodium Chloride (Sodium Chloride 0.9% 2.5 Ml Syringe) 2.5 ml FLUSH ASDIRECTED PRN PRN Reason: Keep Vein Open Labs: Laboratory Tests 02/19/21 02/19/21 02/19/21 Range/Units 21:40 21:40 21:40 WBC 17.26 H (4.0-11.0) K/uL RBC 3.89 L (4.30-5.90) M/uL Hgb 15.2 (12.0-16.0) g/dL Hct 42.7 (36.0-46.0) % MCV 109.8 H (80.0-98.0) fL MCH 39.1 H (27.0-32.0) pg MCHC 35.6 (31.0-37.0) g/dL RDW Std Deviation 55.9 (28.0-62.0) fl RDW Coeff of [place] 14 (11.0-15.0) % Plt Count 643 H (150-400) K/uL MPV 9.70 (7.40-12.00) fL Neut % (Auto) 73.0 (48.0-80.0) % Lymph % (Auto) 17.3 (16.0-40.0) % [place] % (Auto) 8.7 (0.0-15.0) % Eos % (Auto) 0.8 (0.0-7.0) % Baso % (Auto) 0.2 (0.0-1.5) % Neut # (Auto) 12.6 H (1.4-5.7) K/uL Lymph # (Auto) 3.0 H (0.6-2.4) K/uL [place] # (Auto) 1.5 H (0.0-0.8) K/uL Eos # (Auto) 0.1 (0.0-0.7) K/uL Baso # (Auto) 0.0 (0.0-0.1) K/uL Nucleated RBC % 0.0 /100WBC Nucleated RBCs # 0 K/uL Sodium 136 (136-145) mmol/L Potassium 3.2 L (3.5-5.1) mmol/L Chloride 97 L (98-107) mmol/L Carbon Dioxide 28.5 (21.0-32.0) mmol/L BUN 1 L (7.0-18.0) mg/dL Creatinine 0.7 (0.6-1.0) mg/dL Est Cr Clr Drug Dosing TNP Estimated GFR (MDRD) > 60.0 ml/min Glucose 99 (74-106) mg/dL Calcium 8.6 (8.5-10.1) mg/dL Total Bilirubin 0.3 (0.2-1.0) mg/dL AST 89 H (15-37) IU/L ALT 43 (14-63) IU/L Alkaline Phosphatase 214 H (46-116) U/L Total Protein 7.0 (6.4-8.2) g/dL Albumin 2.7 L (3.4-5.0) g/dL Globulin 4.3 H (2.6-4.0) g/dL Albumin/Globulin Ratio 0.6 L (0.9-1.6) Lipase 62 L (73-393) U/L Urine Color YELLOW Urine Appearance SLT CLOUDY Urine pH 6.5 (5.0-8.0) Ur Specific Od[place] 1.015 (1.001-1.035) Urine Protein NEGATIVE (NEGATIVE) mg/dL Urine Glucose (UA) NEGATIVE (NEGATIVE) mg/dL Urine Ketones NEGATIVE (NEGATIVE) mg/dL Urine Occult Blood TRACE-LYSED H (NEGATIVE) Urine Nitrite NEGATIVE (NEGATIVE) Urine Bilirubin NEGATIVE (NEGATIVE) Urine Urobilinogen 0.2 (<2.0) EU/dL Ur Leukocyte Esterase TRACE H (NEGATIVE) Urine RBC 0-2 (0-2/HPF) Urine WBC 2-4 (0-5/HPF) Ur Epithelial Cells MODERATE (NONE-FEW) Urine Bacteria FEW (NEGATIVE) Meds: Medications Generic Name Dose Route Start Last Admin Trade Name Freq PRN Reason Stop Dose Admin Sodium Chloride 10 ml 02/19/21 21:39 Sodium Chloride 0.9% 10 Ml Syringe FLUSH ASDIRECTED PRN Keep Vein Open Sodium Chloride 2.5 ml 02/19/21 21:39 Sodium Chloride 0.9% 2.5 Ml Syringe FLUSH ASDIRECTED PRN Keep Vein Open Discontinued Medications Generic Name Dose Route Start Last Admin Trade Name Freq PRN Reason Stop Dose Admin Pantoprazole Sodium 40 mg/ 10 mls @ 300 mls/hr 02/19/21 21:41 02/19/21 21:49 Sodium Chloride IV 02/19/21 21:42 300 mls/hr NOW ONE Administration Sodium Chloride 1,000 mls @ 1,000 mls/hr 02/19/21 21:56 02/19/21 22:01 Normal Saline IV 02/19/21 22:55 1,000 mls/hr .Bolus ONE Administration Ondansetron HCl 4 mg 02/19/21 21:39 02/19/21 21:49 Ondansetron 4 Mg/2 Ml Sdv IVPUSH 02/19/21 21:40 4 mg ONETIME ONE Administration Departure - Departure Time of Disposition: 00:48 Disposition: Home, Self-Care 01 Condition: Good Clinical Impression: Abdominal pain - Discharge Information Prescriptions: Acetaminophen/HYDROcodone [[place] 325-10 MG] 1 tab PO Q4H PRN #10 tab PRN Reason: Pain (Severe 7-10) Ondansetron [Zofran ODT] 4 mg PO Q6H PRN #10 tab.dis PRN Reason: Nausea Instructions: Abdominal Pain, Adult, [id number] Referrals: Eben Odom DO [Primary Care Provider] - Forms: ED Department Discharge Additional Instructions: [facility] - General Surgery Professional Building [address] [place] [address], [address] [place] [address] The following information is given to patients seen in the emergency department who are being discharged to home. This information is to outline your options for follow-up care. We provide all patients seen in our emergency department with a follow-up referral. The need for follow-up, as well as the timing and circumstances, are variable depending upon the specifics of your emergency department visit. If you don't have a primary care physician on staff, we will provide you with a referral. We always advise you to contact your personal physician following an emergency department visit to inform them of the circumstance of the visit and for follow-up with them and/or the need for any referrals to a consulting specialist. The emergency department will also refer you to a specialist when appropriate. This referral assures that you have the opportunity for follow-up care with a specialist. All of these measure are taken in an effort to provide you with optimal care, which includes your follow-up. Under all circumstances we always encourage you to contact your private physician who remains a resource for coordinating your care. When calling for follow-up care, please make the office aware that this follow-up is from your recent emergency room visit. If for any reason you are refused follow-up, please contact the [facility] Emergency Department at and asked to speak to the emergency department charge nurse. Sepsis Event Note (ED) - Evaluation Sepsis Screening Result: No Definite Risk - Focused Exam Vital Signs: Vital Signs Temp Pulse Resp BP Pulse Ox 02/19/21 23:15 82 18 115/71 99 02/19/21 21:30 36.3 C 86 18 119/83 98 - My Orders Last 24 Hours: My Active Orders 02/19/21 21:39 Sodium Chloride 0.9% [Saline Flush] 10 ml FLUSH ASDIRECTED PRN Sodium Chloride 0.9% [Saline Flush] 2.5 ml FLUSH ASDIRECTED PRN Saline Lock Insert [OM.PC] Stat 02/19/21 21:55 Communication Order [RC] STAT - Assessment/Plan Last 24 Hours: My Active Orders 02/19/21 21:39 Sodium Chloride 0.9% [Saline Flush] 10 ml FLUSH ASDIRECTED PRN Sodium Chloride 0.9% [Saline Flush] 2.5 ml FLUSH ASDIRECTED PRN Saline Lock Insert [OM.PC] Stat 02/19/21 21:55 Communication Order [RC] STAT
[2021-02-19] MEDS ORDERED: Sodium Chloride 0.9% 1,000 ML IV ONE (21:56)
[2021-02-19 22:14] LABS: BLOOD UREA NITROGEN,BUN 1 mg/dL (7.0-18.0); CARBON DIOXIDE,CO2 28.5 mmol/L (21.0-32.0); CHLORIDE,CL 97 mmol/L (98-107); GLUCOSE RANDOM 99 mg/dL (74-106); LIPASE 62 U/L (73-393); POTASSIUM,K 3.2 mmol/L (3.5-5.1); SODIUM,NA 136 mmol/L (136-145)
--- NOTE | 2021-02-19 22:58 | CR ---
Indication: Abdominal pain, constipation and vomiting Technique: Chest x-ray and two view abdomen Comparison: None Findings/Impression: The lungs are clear. No pleural effusion or pneumothorax. Cardiomediastinal silhouette unremarkable. No dilated loops of large or small intestine. Small phleboliths within the pelvis. Osseous structures unremarkable. Dictated by Gabriel Kim MD @ Feb 19 2021 10:54PM Signed by Dr. Gabriel Kim @ Feb 19 2021 10:57PM
--- NOTE | 2021-02-20 00:05 | CT ---
INDICATION: Right lower quadrant abdominal pain TECHNIQUE: Axial images were obtained from the diaphragm to the pubic symphysis. Reformats were obtained in the coronal and sagittal plane. IV Contrast: None Oral Contrast: None COMPARISON: Abdomen and pelvis CT 08/12/2020 FINDINGS: Lower chest: Trace discoid atelectasis right lung base. Liver: Heterogeneous density of the liver with geographic hypodense areas. Gallbladder and bile ducts: Unremarkable. No stones or inflammation. No biliary dilatation. Spleen: Unremarkable. Normal in size without mass. Pancreas: Unremarkable. No mass or inflammation. Adrenal glands: Unremarkable. No nodules. Kidneys: Unremarkable. No masses, stones, or hydronephrosis. Vasculature: Mild atherosclerotic calcification without abdominal aortic aneurysm. GI tract: The stomach is unremarkable. No dilated loops of large or small intestine. Colonic diverticulosis. Appendix appears diminutive without gross abnormality. Pelvis: Unremarkable. Bones: Unremarkable for age. IMPRESSION: 1. Colonic diverticulosis without morro diverticulitis. 2. Markedly heterogeneous density of the liver consistent with geographic fatty infiltration. Please note that all CT scans at this facility use dose modulation, iterative reconstruction, and/or weight-based dosing when appropriate to reduce radiation dose to as low as reasonably achievable. Dictated by Gabriel Kim MD @ Feb 19 2021 11:57PM Signed by Dr. Gabriel Kim @ Feb 20 2021 12:03AM
== END 2021-02-20 01:01 | disposition home or self-care (01) ==
LOC: MW.ED 21:07
DX: R10.9 Unspecified abdominal pain (principal); I10 Essential (primary) hypertension; Z88.0 Allergy status to penicillin; Z79.899 Other long term (current) drug therapy
CPT/HCPCS: 36415; 74022; 74176; 80053; 81001; 83690; 85025; 96374; 96375; 99284; C9113; J2405; J7030

== ENCOUNTER 2021-02-21 08:49 | Day surgery (SDC) | payer SELFPAY ==
[~2021-02-21 08:49] MED LIST: Lactated Ringers 1,000 ML IV SCH; Sodium Chloride 0.9% 10 ML SDV IV PRN; Sodium Chloride 0.9% 10 ML Syringe FLUSH PRN; Sodium Chloride 0.9% 2.5 ML Syringe FLUSH PRN
[2021-02-21] MEDS ORDERED: Scopolamine 1.5 MG Transdermal Patch TRDERM ONE (09:40)
--- NOTE | 2021-02-21 09:40 | PCM.PREANE ---
Preanesthetic Assessment - Anesthesia/Transfusion/Family Hx Anesthesia History: Prior Anesthesia Without Reaction Other Type of Anesthesia Reaction Comment: wants antiemetics- hates "puking" Family History of Anesthesia Reaction: No Transfusion History: No Prior Transfusion(s) - Review of Systems General: No Symptoms Pulmonary: No Symptoms Cardiovascular: No Symptoms Gastrointestinal: No Symptoms Neurological: No Symptoms Other: Reports: None - Physical Assessment NPO Status Date: 02/21/21 NPO Status Time: 00:01 Vital Signs: Last Vital Signs Temp 97.7 F 02/21/21 09:34 Pulse 71 02/21/21 09:34 Resp 18 02/21/21 09:34 BP 110/75 02/21/21 09:34 Pulse Ox Height: 5 ft 9 in Weight: 119 lb ASA Class: 2 Mental Status: Alert & Oriented x3 Airway Class: Mallampati = 2 Dentition: Reports: Normal Dentition, Broken Tooth/Teeth, Missing Tooth/Teeth, Caries ROM/Head Extension: Full Lungs: Clear to Auscultation, Normal Respiratory Effort Cardiovascular: Regular Rate, Regular Rhythm - Lab Values: Laboratory Last Values Urine HCG, Qual NEGATIVE (NEGATIVE) 02/21/21 08:10 - Allergies Allergies/Adverse Reactions: Allergies Allergy/AdvReac Type Severity Reaction Status Date / Time Penicillins Allergy Vomiting Verified 02/19/21 21:36 - Anesthesia Plan Pre-Op Medication Ordered: None - Acknowledgements Anesthesia Type Planned: General Anesthesia Pt an Appropriate Candidate for the Planned Anesthesia: Yes Alternatives and Risks of Anesthesia Discussed w Pt/Guardian: Yes Pt/Guardian Understands and Agrees with Anesthesia Plan: Yes Additional Comments: npo tob 1 ppd etoh 2-3 vodka's a week anxiety phobia regarding emesis motion sick daily zofran no cv problems par no questions PreAnesthesia Questionnaire HEENT History: Reports: Other (See Below) Other HEENT History: wears glasses Cardiovascular History: Reports: Blood Clots/VTE/DVT, Hypertension Other Cardiovascular History: hx of hypertension in the past- no medications now Respiratory History: Reports: PE Other Respiratory History: 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 Recurrent UTI's. WOOL CARDER History: Reports: None Musculoskeletal History: Reports: Fracture Other Musculoskeletal History: hx of fx back and toe- no hardware Neurological History: Reports: Other (See Below) Other Neuro History: hx of motion sickness and claustrophobia Psychiatric History: Reports: Anxiety Other Psychiatric History: occasionall takes Zanax Endocrine/Metabolic History: Reports: None Other Endocrine/Metabolic History: Anorexia Hematologic History: Reports: None Other Hematologic History: sepsis Immunologic History: Reports: Other (See Below) Other Immunologic History: hx of sepsis x2 Oncologic (Cancer) History: Reports: None Dermatologic History: Reports: None Other Dermatologic History: DVT - Infectious Disease History Infectious Disease History: Reports: None Other Infectious Disease History: sepsis - Past Surgical History Head Surgeries/Procedures: Reports: None HEENT Surgical History: Reports: None Cardiovascular Surgical History: Reports: None Respiratory Surgical History: Reports: None GI Surgical History: Reports: Appendectomy, Colonoscopy Female Surgical History: Reports: Breast Biopsy Other Female Surgeries/Procedures: Right Breast Abcess Endocrine Surgical History: Reports: None Neurological Surgical History: Reports: None Musculoskeletal Surgical History: Reports: Arthroscopic Knee Other Musculoskeletal Surgeries/Procedures:: Right knee scope Oncologic Surgical History: Reports: None Dermatological Surgical History: Reports: None - SUBSTANCE USE Tobacco Use Status *Q: Current Every Day Tobacco User Tobacco Use Within Last Twelve Months: Cigarettes Recreational Drug Use History: No - HOME MEDS Home Medications: Home Meds Ondansetron [Zofran ODT] 4 mg PO Q6H PRN 08/10/20 [History] ALPRAZolam [Xanax] 0.5 mg PO ASDIRECTED PRN 02/18/21 [History] Acetaminophen/HYDROcodone [[place] 325-10 MG] 1 tab PO Q4H PRN #10 tab 02/20/21 [Rx] Ondansetron [Zofran ODT] 4 mg PO Q6H PRN #10 tab.dis 02/20/21 [Rx] - CURRENT (IN HOUSE) MEDS Current Meds: Current Medications Lactated Ringer's (Ringers, Lactated) 1,000 mls @ 125 mls/hr IV ASDIRECTED NEVA Scopolamine (Scopolamine 1.5 Mg Transdermal Patch) 1.5 mg TRDERM ONETIME ONE Stop: 02/21/21 09:41 Sodium Chloride (Sodium Chloride 0.9% 10 Ml Syringe) 10 ml FLUSH ASDIRECTED PRN PRN Reason: Keep Vein Open Sodium Chloride (Sodium Chloride 0.9% 2.5 Ml Syringe) 2.5 ml FLUSH ASDIRECTED PRN PRN Reason: Keep Vein Open Sodium Chloride (Sodium Chloride 0.9% 10 Ml Syringe) 10 ml FLUSH ASDIRECTED PRN PRN Reason: Keep Vein Open Sodium Chloride (Sodium Chloride 0.9% 2.5 Ml Syringe) 2.5 ml FLUSH ASDIRECTED PRN PRN Reason: Keep Vein Open Sodium Chloride (Sodium Chloride 0.9% 10 Ml Sdv) 10 ml IV ASDIRECTED PRN PRN Reason: IV Use
[2021-02-21] MEDS ORDERED: Scopolamine 1.5 MG Transdermal Patch ONE (09:45)
[2021-02-21] MEDS ORDERED: Propofol 200 MG/20 ML SDV ONE (10:44)
[2021-02-21] MEDS ORDERED: fentaNYL 100 MCG/2 ML SDV ONE (10:48)
--- NOTE | 2021-02-21 10:56 | PCM.SN.2 ---
- Free Text/Narrative Note: Patient is a 45 year old female who presents for a diagnostic colonoscopy due to chronic constipation. When I visited with the patient in the pre-operative area, she mentioned that she has been having mid epigastric pain as well as early satiety. I visited with her regarding her symptoms. I explained that we could also perform a diagnostic EGD today to rule out an upper GI source of these symptoms. I explained the procedure, the expected perioperative course, and the risks of bleeding or perforation. She verbalized understanding and wishes to proceed. A new consent was signed by myself and the patient.
[2021-02-21] MEDS ORDERED: Ondansetron 4 MG/2 ML SDV ONE (10:57)
--- NOTE | 2021-02-21 11:32 | PCM.OPNOTE ---
- General Post-Op/Procedure Note Date of Surgery/Procedure: 02/21/21 Operative Procedure(s): Diagnostic EGD and colonoscopy Findings: Hiatal hernia, gastritis, grade IV hemorrhoids, diverticulosis, transverse colon polyp Pre Op Diagnosis: Nausea, postprandial abdominal pain, diverticulosis, chronic constipation Post-Op Diagnosis: Hiatal hernia, gastritis, grade IV hemorrhoids, transverse colon polyp, diverticulosis Anesthesia Technique: [facility] Primary Surgeon: Melody Garza Condition: Good
--- NOTE | 2021-02-21 11:59 | PCM.POSTAN ---
POST ANESTHESIA ASSESSMENT - MENTAL STATUS Mental Status: Alert (no anesthetic problems), Oriented - VITAL SIGNS Vital Signs: Last Vital Signs Temp 97.7 F 02/21/21 09:34 Pulse 49 L 02/21/21 11:40 Resp 9 L 02/21/21 11:40 BP 116/68 02/21/21 11:40 Pulse Ox 99 02/21/21 11:40 - RESPIRATORY Respiratory Status: Respiratory Rate WNL, Airway Patent, O2 Saturation Stable - CARDIOVASCULAR CV Status: Pulse Rate WNL, Blood Pressure Stable - GASTROINTESTINAL GI Status: No Symptoms - POST OP HYDRATION Hydration Status: Adequate & Stable
--- NOTE | 2021-02-21 11:59 | PCM48HPAN ---
Post Anesthesia Note - EVALUATION WITHIN 48HRS OF ANESTHETIC Vital Signs in Normal Range: Yes Patient Participated in Evaluation: Yes Respiratory Function Stable: Yes Airway Patent: Yes Cardiovascular Function Stable: Yes Hydration Status Stable: Yes Pain Control Satisfactory: Yes Nausea and Vomiting Control Satisfactory: Yes Mental Status Recovered: Yes Vital Signs: Last Vital Signs Temp 97.7 F 02/21/21 09:34 Pulse 49 L 02/21/21 11:40 Resp 9 L 02/21/21 11:40 BP 116/68 02/21/21 11:40 Pulse Ox 99 02/21/21 11:40
--- NOTE | 2021-02-22 21:24 | OR ---
SURGEON: MEOLDY GARZA MD DATE OF PROCEDURE: 02/21/2021 PREOPERATIVE DIAGNOSES: 1. Nausea. 2. Postprandial abdominal pain. 3. Diverticulosis. 4. Chronic constipation. POSTOPERATIVE DIAGNOSES: 1. Hiatal hernia. 2. Gastritis. 3. Grade 4 hemorrhoids. 4. Transverse colon polyp. 5. Diverticulosis. PROCEDURE PERFORMED: Diagnostic esophagogastroduodenoscopy and colonoscopy. PRIMARY SURGEON: Melody Garza MD. ANESTHESIA: MAC. INSTRUMENT USED: Olympus endoscope and colonoscope. EXTENT OF EXAMINATION: To the second portion of duodenum, to the cecum. PREPARATION: Good. LIMITATIONS: None. INDICATIONS FOR EXAMINATION: The patient is a 45-year-old female who saw me in clinic with complaints of chronic constipation. When I visited her within the preoperative area this morning, the patient complained of nausea as well as postprandial abdominal pain and early satiety. We visited about her symptoms again and decided to perform both a diagnostic EGD and colonoscopy. I visited with the patient regarding the procedures, the expected perioperative course, and the risks. She verbalized understanding and wishes to proceed. PROCEDURE IN DETAIL: The patient was brought to the endoscopy suite and placed in the left lateral decubitus position. A time-out was completed verifying the patient's name, age, date of , allergies, and procedure to be performed. A bite block was placed in the patient's mouth. Monitored anesthesia care was induced and continuous oxygen was provided via face mask throughout the procedure. After adequate sedation was achieved, a well-lubricated endoscope was placed in the patient's mouth and advanced under direct visualization to the second portion of duodenum. This appeared normal, and a photograph was taken. The scope was then straightened out and fully withdrawn while examining the color, texture, anatomy, and integrity of the mucosa of the upper GI tract. The duodenum appeared normal. A biopsy was taken of the duodenum and sent to Pathology. The scope was then brought into the stomach, and a photograph was taken of the pylorus and the GE junction. The patient was noted to have a small hiatal hernia. Along the antrum of the stomach, the patient appeared to have some gastritis. There was no evidence of ulcers. Biopsies were taken of the gastric antrum, body, and fundus and sent for histologic review and H pylori testing. The scope was then brought into the distal esophagus, and a photograph was taken of the Z-line. This appeared normal. A biopsy was taken 1 cm above this, and sent to Pathology, labeled as esophagus. The remainder of the esophagus was normal. The scope was removed, and this portion of procedure terminated. A digital rectal exam was performed. The patient had large prolapsed grade 4 hemorrhoids. A well-lubricated colonoscope was inserted into the rectum and advanced under direct visualization to the level of the cecum. The cecum was identified by both visual and anatomic landmarks. A photograph was taken of the cecal cap as well as with the scope retroflexed within the cecum. The scope was then fully withdrawn while examining the color, texture, anatomy, and integrity of the mucosa from the cecum to the anal canal. The patient was noted to have a small transverse colon polyp. This was removed in piecemeal fashion using a cold biopsy forceps. The patient was noted to have diverticulosis within the sigmoid colon. The scope was then brought into the rectum, and retroflexed to allow visualization of the anal canal opening. Again, the patient was noted to have enlarged hemorrhoids. The scope was straightened out and fully withdrawn. The cecum to anus time was greater than 6 minutes. The patient tolerated the procedure well and was transferred to the PACU in stable condition. ENDOSCOPIC DIAGNOSES: 1. Hiatal hernia. 2. Gastritis. 3. Grade 4 hemorrhoids. 4. Transverse colon polyp. 5. Diverticulosis. RECOMMENDATIONS: The patient did undergo a CT scan of the abdomen and pelvis. This showed no acute pathology. The patient will be placed on a daily PPI and will follow up with me in clinic in 2 weeks to go over her biopsy results and the next steps in treatment. GENIE BECKHAM /[id number]
== END 2021-02-21 12:10 | disposition home or self-care (01) ==
LOC: MW.SDS 08:49
PROVIDERS: ATTEND Surgery
DX: K29.50 Unspecified chronic gastritis without bleeding (principal); K20.90 Esophagitis, unspecified without bleeding; D12.3 Benign neoplasm of transverse colon; K57.30 Diverticulosis of large intestine without perforation or abscess without bleeding; K64.3 Fourth degree hemorrhoids; K44.9 Diaphragmatic hernia without obstruction or gangrene; I10 Essential (primary) hypertension; F17.210 Nicotine dependence, cigarettes, uncomplicated; Z88.0 Allergy status to penicillin; Z79.899 Other long term (current) drug therapy; Z98.890 Other specified postprocedural states
CPT/HCPCS: 43239; 45380; 81025; A9270; J2405; J2704; J3010; J7120; 00813; 88305; 88312

== ENCOUNTER 2021-02-24 23:24 | Emergency (ER) | payer SELFPAY ==
[2021-02-24] MEDS ORDERED: Aspirin 81 MG Tab.Chew PO ONE (23:30)
[2021-02-24] MEDS ORDERED: methylPREDNISolone Sodium Succinate 125 MG/2 ML SDV IVPUSH ONE (23:46)
[2021-02-24] MEDS ORDERED: diphenhydrAMINE 50 MG/ML SDV IVPUSH ONE (23:46)
[2021-02-25 00:03] LABS: BLOOD UREA NITROGEN,BUN 3 mg/dL (7.0-18.0); CARBON DIOXIDE,CO2 24.9 mmol/L (21.0-32.0); CHLORIDE,CL 104 mmol/L (98-107); GLUCOSE RANDOM 112 mg/dL (74-106); POTASSIUM,K 3.2 mmol/L (3.5-5.1); SODIUM,NA 143 mmol/L (136-145)
[2021-02-25] MEDS ORDERED: Potassium Chloride 10% 20 MEQ/15 ML Soln 30 ML UD Cup PO ONE (00:15)
[2021-02-25] MEDS ORDERED: Magnesium Sulfate (4.06 MEQ/ML) 5 GM/10 ML SDV IV STA (00:15)
[2021-02-25] MEDS ORDERED: Magnesium Sulfate/Water 2 GM/50 ML BAG IV ONE (00:30)
[2021-02-25] MEDS ORDERED: Iopamidol 755 MG/ML 500 ML Multipack Bottle IVPUSH STA (01:20)
--- NOTE | 2021-02-25 01:37 | CR ---
INDICATION: Chest pain TECHNIQUE: Chest radiograph 1 view COMPARISON: 02/19/2021 FINDINGS: Mediastinum: The mediastinum is normal in appearance. The heart silhouette is normal in size and morphology. Lung: Both lungs are unremarkable in appearance. A prominent left nipple silhouette is noted. No sign of pleural effusion seen. No pneumothorax is identified. Bone and Soft tissue: Unremarkable for age. IMPRESSION: 1. No acute cardiopulmonary disease is seen. Dictated by: Kiran Flores MD @ 02/25/2021 01:34:36 (Electronically Signed)
--- NOTE | 2021-02-25 01:49 | CT ---
INDICATION: Chest pain TECHNIQUE: CT chest with i.v. contrast using pulmonary angiographic technique. Coronal and sagittal reformats were obtained. CONTRAST: 50 mL Isovue 370 COMPARISON: 02/19/2021 FINDINGS: Cardiovascular: The pulmonary arteries are unremarkable in enhancement with no evidence of acute pulmonary embolism. The heart has an unremarkable appearance and size. Ectasia of the ascending aorta is noted measuring 3.6 cm in maximal short axis diameter. Mediastinum: No mass or adenopathy seen. Lung: There is a 3 mm subpleural nodule in the posterior left lower lobe on image 98, series 602. It is too small to further characterize. Adjacent paraseptal emphysema in the left lower lobe is noted. Mild linear scarring is seen in the right middle lobe. Pleura and pericardium: No sign of pleural effusion seen. No significant pericardial effusion is present. Chest wall and axilla: No mass or adenopathy seen. Bone: Unremarkable for age. Upper abdomen: Moderate heterogeneous and geographic fatty infiltration of the liver is present, similar to prior examination. IMPRESSIONS: 1. No CT evidence of acute pulmonary emboli seen. 2. Ectasia of the ascending aorta is noted measuring 3.6 cm in maximal short axis diameter. Dictated by Kiran Flores MD @ 02/25/2021 1:48:42 AM Please note that all CT scans at this facility use dose modulation, iterative reconstruction, and/or weight-based dosing when appropriate to reduce radiation dose to as low as reasonably achievable. Dictated by: Kiran Flores MD @ 02/25/2021 01:48:48 (Electronically Signed)
--- NOTE | 2021-02-25 02:17 | EDM.PDOC ---
ED HPI GENERAL MEDICAL PROBLEM - General Chief Complaint: Chest Pain Stated Complaint: CHEST PAIN Time Seen by Provider: 02/24/21 23:30 - History of Present Illness INITIAL COMMENTS - FREE TEXT/NARRATIVE: CHIEF COMPLAINT(S): Left-sided chest pain HISTORY OF PRESENT ILLNESS: This is a 45-year-old woman with a past medical history of DVT and PE who comes to the emergency department with a chief complaint of left-sided chest pain. The patient states that prior to arrival she started to experience sharp left-sided chest pain which she rates as 9 out of 10. She denies any radiation of this pain. She denies any shortness of breath, diaphoresis, nausea or vomiting. She denies any history of CAD but states that she does have a history of pulmonary embolism and DVT. She states that this pain feels very similar. She has not yet tried anything for the pain. She states that the pain is exacerbated by increased deep breaths. She denies any lower extremity edema, abdominal pain. She denies any headache, numbness, tingling, weakness. She denies any syncope. She states that she is not on anticoagulation. REVIEW OF SYSTEMS: Constitutional: Denies fever, chills. Eyes: Denies eye pain Ears, Nose, Mouth, & Throat: Denies earache Cardiovascular: Positive for left-sided chest pain Respiratory: Denies shortness of breath Gastrointestinal: Denies Nausea, vomiting, diarrhea, hematochezia. Genitourinary: Denies hematuria Skin:Denies a rash MSK: Denies joint pain Neurological: Denies blurred vision Psychiatric: Denies depression PAST MEDICAL HISTORY: As per history of present illness and as reviewed below otherwise noncontributory. SURGICAL HISTORY: As per history of present illness and as reviewed below otherwise noncontributory. SOCIAL HISTORY: As per history of present illness and as reviewed below ot herwise noncontributory. FAMILY HISTORY: As per history of present illness and as reviewed below otherwise noncontributory. EXAMINATION OF ORGAN SYSTEMS/BODY AREAS: Constitutional: Blood pressure is 140/88, heart rate 93, respiratory rate 16 with an oxygen saturation 97% on room air. Temperature 37.3 General: Overall well-appearing woman who is in no acute distress Psychiatric: Appropriate mood and affect. Eyes: No scleral icterus or conjunctival erythema ENMT: Moist mucous membranes. No pharyngeal erythema Cardiovascular: Regular, rate, and rhythm. No gallops, murmurs, or rubs. Bilateral upper extremity pulses symmetric and intact. No peripheral edema. No JVD. Respiratory: Lungs clear to auscultation bilaterally. No wheezes, rales, or rhonchi. Gastrointestinal: Soft, non-tender, non-distended. Normoactive bowel sounds Genitourinary: No suprapubic tenderness Musculoskeletal: Normal range of motion. Skin: No lesions or abrasions. Neurological: Alert, GCS 15 MEDICAL DECISION MAKING AND COURSE IN THE ED WITH INTERPRETATION/REVIEW OF DIAGNOSTIC STUDIES: This is a 45 woman with a past medical history of PE and DVT who comes to the emergency department with acute left-sided chest pain which she describes as her prior PE. Given her prior PE will obtain an angiogram of the chest and a cardiac work-up. EKG did reveal signs of S1Q3T3 with right heart strain. The patient's vitals are stable at this time therefore no intervention will be needed. Laboratory: CBC reveals a leukocytosis of 13.29 with normal indices, macrocytic anemia with a MCV of 108.5 with a hemoglobin of 14.6 and 40.9. Thrombocytosis with a platelet count of 435. BMP reveals hypokalemia at 3.2 otherwise unremarkable. Magnesium is low at 1.1 troponin is negative. The radiological images were viewed by myself along with reading the report from the radiologist. Chest x-ray does not reveal any acute cardiopulmonary process. Angiogram of the chest does not reveal any evidence of acute pulmonary embolism. There is a 3 mm subpleural nodule and some emphysema in the left lower lobe. There is some scarring of the right middle lobe. On reevaluation the patient was reporting improvement in her chest pain. At this time I did discuss results with her. She did not know that she had a pulmonary nodule so I instructed her to follow-up with her primary care physician for monitoring. I did replenish the patient's potassium and magnesium. I did discuss with her about her electrolyte abnormalities and the patient states that she does drink alcohol. I did discuss with her to refrain from alcohol. She is to use Tylenol and Motrin for pain relief as I do believe this is musculoskeletal in nature. She is to follow-up with her primary care physician for further evaluation. She was amenable to discharge and had no further questions DISPOSITION: The patient was discharged home in stable condition. The patient will follow up with primary care physician within 3 to 5 days CONDITION: Fair PROCEDURES: None FINAL IMPRESSION(S)/DIAGNOSES: 1. Acute left-sided chest pain 2. Subpleural nodule Daniel Ledesma M.D. left sided chest pain Pain Score (Numeric/FACES): 9 - Related Data Allergies Allergy/AdvReac Type Severity Reaction Status Date / Time Penicillins Allergy Vomiting Verified 02/24/21 23:27 Home Meds: Home Meds Ondansetron [Zofran ODT] 4 mg PO Q6H PRN 08/10/20 [History] ALPRAZolam [Xanax] 0.5 mg PO ASDIRECTED PRN 02/18/21 [History] Acetaminophen/HYDROcodone [[place] 325-10 MG] 1 tab PO Q4H PRN #10 tab 02/20/21 [Rx] Ondansetron [Zofran ODT] 4 mg PO Q6H PRN #10 tab.dis 02/20/21 [Rx] Pantoprazole [ProTONIX] 40 mg PO DAILY #30 tab.cr 02/21/21 [Rx] Past Medical History HEENT History: Reports: Other (See Below) Other HEENT History: wears glasses Cardiovascular History: Reports: Blood Clots/VTE/DVT, Hypertension Other Cardiovascular History: hx of hypertension in the past- no medications now Respiratory History: Reports: PE Other Respiratory History: 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 Recurrent UTI's. 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 Musculoskeletal History: Reports: Fracture Other Musculoskeletal History: hx of fx back and toe- no hardware Neurological History: Reports: Other (See Below) Other Neuro History: hx of motion sickness and claustrophobia Psychiatric History: Reports: Anxiety Other Psychiatric History: occasionall takes Zanax Endocrine/Metabolic History: Reports: None Other Endocrine/Metabolic History: Anorexia Insulin Pump Model and Machinist Brake: None Hematologic History: Reports: None Other Hematologic History: sepsis Immunologic History: Reports: Other (See Below) Other Immunologic History: hx of sepsis x2 Oncologic (Cancer) History: Reports: None Dermatologic History: Reports: None Other Dermatologic History: DVT - Infectious Disease History Infectious Disease History: Reports: Chicken Pox, Measles Other Infectious Disease History: sepsis - Past Surgical History Head Surgeries/Procedures: Reports: None HEENT Surgical History: Reports: None Cardiovascular Surgical History: Reports: None Respiratory Surgical History: Reports: None GI Surgical History: Reports: Appendectomy, Colonoscopy Female Surgical History: Reports: Breast Biopsy Other Female Surgeries/Procedures: Right Breast Abcess Endocrine Surgical History: Reports: None Neurological Surgical History: Reports: None Musculoskeletal Surgical History: Reports: Arthroscopic Knee Other Musculoskeletal Surgeries/Procedures:: Right knee scope Oncologic Surgical History: Reports: None Dermatological Surgical History: Reports: None Social & Family History - Family History Family Medical History: No Pertinent Family History - Caffeine Use Caffeine Use: Reports: Coffee, Tea ED ROS GENERAL - Review of Systems Review Of Systems: See Below ED EXAM, GENERAL - Physical Exam Exam: See Below Course - Vital Signs Last Recorded V/S: Last Vital Signs Temp 37.3 C 02/24/21 23:27 Pulse 93 02/24/21 23:27 Resp 16 02/24/21 23:27 BP 140/88 02/24/21 23:27 Pulse Ox 97 02/24/21 23:27 - Orders/Labs/Meds Labs: Laboratory Tests 02/24/21 02/24/21 Range/Units 23:35 23:35 WBC 13.29 H (4.0-11.0) K/uL RBC 3.77 L (4.30-5.90) M/uL Hgb 14.6 (12.0-16.0) g/dL Hct 40.9 (36.0-46.0) % MCV 108.5 H (80.0-98.0) fL MCH 38.7 H (27.0-32.0) pg MCHC 35.7 (31.0-37.0) g/dL RDW Std Deviation 55.9 (28.0-62.0) fl RDW Coeff of [place] 14 (11.0-15.0) % Plt Count 435 H (150-400) K/uL MPV 9.60 (7.40-12.00) fL Neut % (Auto) 67.5 (48.0-80.0) % Lymph % (Auto) 22.3 (16.0-40.0) % [place] % (Auto) 9.6 (0.0-15.0) % Eos % (Auto) 0.5 (0.0-7.0) % Baso % (Auto) 0.1 (0.0-1.5) % Neut # (Auto) 9.0 H (1.4-5.7) K/uL Lymph # (Auto) 3.0 H (0.6-2.4) K/uL [place] # (Auto) 1.3 H (0.0-0.8) K/uL Eos # (Auto) 0.1 (0.0-0.7) K/uL Baso # (Auto) 0.0 (0.0-0.1) K/uL Nucleated RBC % 0.0 /100WBC Nucleated RBCs # 0 K/uL Sodium 143 (136-145) mmol/L Potassium 3.2 L (3.5-5.1) mmol/L Chloride 104 (98-107) mmol/L Carbon Dioxide 24.9 (21.0-32.0) mmol/L BUN 3 L (7.0-18.0) mg/dL Creatinine 0.7 (0.6-1.0) mg/dL Est Cr Clr Drug Dosing 82.69 mL/min Estimated GFR (MDRD) > 60.0 ml/min Glucose 112 H (74-106) mg/dL Calcium 8.8 (8.5-10.1) mg/dL Magnesium 1.1 L (1.8-2.4) mg/dL Troponin I < 0.050 (0.000-0.056) ng/mL Meds: Medications Discontinued Medications Generic Name Dose Route Start Last Admin Trade Name Freq PRN Reason Stop Dose Admin Acetaminophen 1,000 mg 02/25/21 02:46 02/25/21 02:52 Acetaminophen 500 Mg Tab PO 02/25/21 02:47 Not Given ONETIME ONE Aspirin 324 mg 02/24/21 23:30 02/24/21 23:44 Aspirin 81 Mg Tab.Chew PO 02/24/21 23:31 324 mg ONETIME ONE Administration Diphenhydramine HCl 50 mg 02/24/21 23:46 02/25/21 00:08 Diphenhydramine 50 Mg/Ml Sdv IVPUSH 02/24/21 23:47 50 mg ONETIME ONE Administration Magnesium Sulfate 2 gm in 50 mls @ 50 mls/hr 02/25/21 00:30 02/25/21 00:52 Magnesium Sulfate In Water 2 Gm/50 Ml IV 02/25/21 01:29 50 mls/hr NOW ONE Administration Iopamidol 50 ml 02/25/21 01:20 02/25/21 01:21 Iopamidol 755 Mg/Ml 500 Ml Multipack Bottle IVPUSH 02/25/21 01:21 50 ml ONETIME STA Administration Ketorolac Tromethamine 15 mg 02/25/21 02:18 02/25/21 02:39 Ketorolac 15 Mg/Ml Sdv IM 02/25/21 02:19 15 mg ONETIME ONE Administration Magnesium Sulfate 2 gm 02/25/21 00:15 Magnesium Sulfate (4.06 Meq/Ml) 5 Gm/10 Ml Sdv IV 02/25/21 00:16 ONETIME STA Methylprednisolone Sodium Succinate 125 mg 02/24/21 23:46 02/25/21 00:08 Methylprednisolone Sodium Succinate 125 Mg/2 Ml Sdv IVPUSH 02/24/21 23:47 125 mg ONETIME ONE Administration Potassium Chloride 40 meq 02/25/21 00:15 02/25/21 00:52 Potassium Chloride 10% 20 Meq/15 Ml Soln 30 Ml Ud Cup PO 02/25/21 00:16 40 meq ONETIME ONE Administration Departure - Departure Time of Disposition: 02:16 Disposition: Home, Self-Care 01 Condition: Fair Clinical Impression: Pulmonary nodule, Left-sided chest wall pain, Emphysema of left lung - Discharge Information *PRESCRIPTION DRUG MONITORING PROGRAM REVIEWED*: No *COPY OF PRESCRIPTION DRUG MONITORING REPORT IN PATIENT MELLY: No Instructions: Chest Wall Pain, [id number], Pulmonary Nodule, [id number] Referrals: Eben Odom DO [Primary Care Provider] - Forms: ED Department Discharge Additional Instructions: You were evaluated today on an emergent basis. At this time your work-up was negative. Your laboratory analysis did reveal some electrolyte abnormalities. I do recommend that you take a multivitamin including B12, thiamine, and folic a rodney. In regards to the pain on the left side this is likely due to musculoskeletal pain. I recommend the use of Tylenol and Motrin alternating over the next 2 days and then as needed after that. I do recommend that you follow-up with your primary care physician. Incidentally there was also a 3 mm subpleural nodule which is a lung nodule in your left lung. I do recommend that you follow-up with your primary care physician for further monitoring and evaluation. Please return for any new or worsening symptoms such as worsening chest pain, passing out, shortness of breath. Please use: Tylenol 500-1000mg every 6 hours (DO NOT TAKE MORE THAN 4000mg in 1 day) Ibuprofen 400mg every 6 hours (Take with food as it can cause ulcers, GI upset) Example schedule: 8:00 AM (Tylenol 500-1000mg) 11:00 AM (Ibuprofen 400mg) 2:00 PM (Tylenol 500-1000mg) 5:00 PM (Ibuprofen 400mg) In addition to Tylenol and Motrin you may use over the counter creams such as Voltaren Cream or Lidocaine Cream (Lidoderm) as needed 4 times a day for symptomatic relief. Ice the area 20 minutes 4 times per day [facility] [address] [place] [address] [place] [address] The patient is informed of any results of their evaluation and diagnostic workup and all questions are answered. They are given discharge instructions and return precautions. The patient is stable for discharge. The patient states they understand and agree with the plan and that they will return if their symptoms get worse or if they have any new concerns. The following information is given to patients seen in the emergency department who are being discharged to home. This information is to outline your options for follow-up care. We provide all patients seen in our emergency department with a follow-up referral. The need for follow-up, as well as the timing and circumstances, are variable depending upon the specifics of your emergency department visit. If you don't have a primary care physician on staff, we will provide you with a referral. We always advise you to contact your personal physician following an emergency department visit to inform them of the circumstance of the visit and for follow-up with them and/or the need for any referrals to a consulting specialist. The emergency department will also refer you to a specialist when appropriate. This referral assures that you have the opportunity for follow-up care with a specialist. All of these measure are taken in an effort to provide you with optimal care, which includes your follow-up. Under all circumstances we always encourage you to contact your private physician who remains a resource for coordinating your care. When calling for follow-up care, please make the office aware that this follow-up is from your recent emergency room visit. If for any reason you are refused follow-up, please contact the [facility] Emergency Department at and asked to speak to the emergency department charge nurse. Sepsis Event Note (ED) - Evaluation Sepsis Screening Result: No Definite Risk - Focused Exam Vital Signs: Vital Signs Temp Pulse Resp BP Pulse Ox 02/24/21 23:27 37.3 C 93 16 140/88 97
[2021-02-25] MEDS ORDERED: Ketorolac 15 MG/ML SDV IM ONE (02:18)
[2021-02-25] MEDS ORDERED: Acetaminophen 500 MG Tab PO ONE (02:46)
--- NOTE | 2021-02-25 03:10 | PCM.EKG ---
#1 Interpretation EKG Date: 02/24/21 Time: 23:26 Rhythm: NSR Rate (Beats/Min): 79 [place]: RAD-Right [place] Deviation P-Wave: Present QRS: Normal ST-T: Normal QT: Normal Comparison: No Change (08/05/20) EKG Interpretation Comments: Sinus rhythm with S1Q3T3 and T wave inversions leads V1-V6.
== END 2021-02-25 02:53 | disposition home or self-care (01) ==
LOC: MW.ED 23:24
DX: J43.9 Emphysema, unspecified (principal); R91.1 Solitary pulmonary nodule; I10 Essential (primary) hypertension; Z86.711 Personal history of pulmonary embolism; Z88.0 Allergy status to penicillin
CPT/HCPCS: 36415; 71045; 71275; 80048; 83735; 84484; 85025; 93005; 96365; 96372; 96375; 99285; A9270; J1200; J1885; J2930; J3475; Q9967; 93010; 99284

== ENCOUNTER 2021-07-16 11:35 | Emergency (ER) | payer SELFPAY ==
[2021-07-16 12:32] LABS: ACETAMINOPHEN <2.0 ug/mL; BLOOD UREA NITROGEN,BUN 6 mg/dL (7.0-18.0); CARBON DIOXIDE,CO2 24.1 mmol/L (21.0-32.0); CHLORIDE,CL 103 mmol/L (98-107); GLUCOSE RANDOM 143 mg/dL (74-106); POTASSIUM,K 2.9 mmol/L (3.5-5.1); SODIUM,NA 145 mmol/L (136-145)
--- NOTE | 2021-07-16 12:39 | CR ---
HISTORY: Syncope. TECHNIQUE: One view of the chest. COMPARISON: 02/25/2021. FINDINGS: Cardiac size and pulmonary vasculature are within normal limits. There is no acute lung infiltrate or pulmonary edema. No pneumothorax or pleural effusion. No acute bony abnormality. IMPRESSION: No acute disease. Dictated by Dima Gooden MD @ 07/16/2021 12:38:43 PM (Electronically Signed)
[2021-07-16] MEDS ORDERED: Magnesium Sulfate/Water 2 GM in Premix Bag 1 BAG IV ONE (12:44)
[2021-07-16] MEDS ORDERED: Potassium Chloride 10% 20 MEQ/15 ML Soln 30 ML UD Cup PO ONE (12:44)
[2021-07-16] MEDS ORDERED: Sodium Chloride 0.9% 1,000 ML IV SCH (12:45)
--- NOTE | 2021-07-16 13:05 | EDM.PDOC ---
ED HPI GENERAL MEDICAL PROBLEM - General Chief Complaint: Syncope Stated Complaint: EMS Time Seen by Provider: 07/16/21 11:37 - History of Present Illness INITIAL COMMENTS - FREE TEXT/NARRATIVE: CHIEF COMPLAINT(S): Flu HISTORY OF PRESENT ILLNESS: This is a 46-year-old woman with a past medical history of anorexia who presents to the emergency department with flu. The patient states that for approximately 4 days after the experiencing flulike symptoms. She states that she got the Hugo & Hugo vaccine on Thursday and she has been experiencing body aches, headaches and nausea. She states that she feels severely dehydrated. She states that she has not been able to eat or drink anything. She denies any vomiting. She denies any chest pain, shortness of breath, abdominal pain. She denies any trouble walking, speaking or swallowing. She states that she is in the emergency department because her called the ambulance because she would not wake up this morning. She denies any other symptoms. REVIEW OF SYSTEMS: Constitutional: Positive for weakness and fatigue. Denies fever, chills. Eyes: Denies eye pain Ears, Nose, Mouth, & Throat: Denies earache Cardiovascular: Denies chest pain Respiratory: Denies shortness of breath Gastrointestinal: Positive for nausea. Denies vomiting, diarrhea, medic easier, hematemesis, bilious emesis, melena Genitourinary: Denies hematuria Skin:Denies a rash MSK: Positive for body aches Neurological: Positive for headache. Denies trouble walking, speaking, swallowing Psychiatric: Denies depression PAST MEDICAL HISTORY: As per history of present illness and as reviewed below otherwise noncontributory. SURGICAL HISTORY: As per history of present illness and as reviewed below otherwise noncontributory. SOCIAL HISTORY: As per history of present illness and as reviewed below otherwise noncontributory. FAMILY HISTORY: As per history of present illness and as reviewed below otherwise noncontributory. EXAMINATION OF ORGAN SYSTEMS/BODY AREAS: Constitutional: Blood pressure was 97/58, heart rate 58, respiratory rate 18 with an oxygen saturation of 98% on room air. Temperature 36.8 General: Thin appearing woman who is in no acute distress Psychiatric: Appropriate mood and affect. Eyes: No scleral icterus or conjunctival erythema ENMT: Moist mucous membranes. No pharyngeal erythema Cardiovascular: Regular, rate, and rhythm. No gallops, murmurs, or rubs. Bilateral upper extremity pulses symmetric and intact. No peripheral edema. No JVD. Respiratory: Lungs clear to auscultation bilaterally. No wheezes, rales, or rhonchi. Gastrointestinal: Soft, non-tender, non-distended. Normoactive bowel sounds Genitourinary: No suprapubic tenderness Musculoskeletal: Normal range of motion. Skin: No lesions or abrasions. Neurological: Alert, GCS 15 strength and sensation grossly intact in upper and lower extremities bilaterally MEDICAL DECISION MAKING AND COURSE IN THE ED WITH INTERPRETATION/REVIEW OF DIAGNOSTIC STUDIES: This is a 46-year-old woman with a past medical history of anorexia who presents to the emergency department with weakness and what she describes as flulike symptoms after having the Hugo [employer] Hugo vaccine. At this time the patient's vitals are around her baseline however given her concern we will undergo laboratory analysis including CBC, CMP, troponin, hCG, urinalysis, urine drug screen and serum drug screen. Will obtain a Covid swab. Will obtain a chest x-ray for further evaluation. Laboratory: CBC reveals a leukocytosis of 13.12, macrocytic anemia with an MCV of 111.7, hemoglobin 14.8 hematocrit 40.9. INR is normal. CMP reveals hypokalemia at 2.9, hyperglycemia at 143, hypomagnesemia at 1.4, transaminitis with an AST of 563 and ALT of 205 and alkaline phosphatase of 262. Troponin is negative. hCG is negative. TSH is normal. Urinalysis reveals ketonuria with positive nitrite and bacteria. Interpretation: Negative given the patient is asymptomatic. Urine drug screen is negative. Serum drug screen reveals an elevated alcohol level of 198. Covid is negative. The radiological images were viewed by myself along with reading the report from the radiologist. Chest x-ray does not reveal acute cardiopulmonary process. Given the electrolyte abnormalities we did provide the patient with potassium and magnesium supplementation. At this time I did discuss results with the tu ent. This has been approximately 12 to 13 hours after her last drink and her alcohol level is still around 200. She states that this is what she normally drinks. I do believe that the patient's electrolyte abnormalities, transaminitis and her weakness are likely secondary to her alcohol use. I did encourage the patient to follow-up with her primary care physician for discussion regarding alcohol cessation. In addition I discussed with her that she should use [id number] multivitamins including thiamine. Patient's was at bedside and they were amenable to discharge and had no further questions. DISPOSITION: The patient was discharged home in stable condition. The patient will follow up with primary care physician in 3 to 5 days CONDITION: Fair PROCEDURES: None FINAL IMPRESSION(S)/DIAGNOSES: 1. Acute weakness likely secondary to alcohol intoxication 2. Acute hypokalemia likely secondary to alcohol use disorder 3. Acute hypomagnesemia likely secondary to alcohol use disorder 4. Acute alcoholic hepatitis 5. Acute ketonuria likely secondary to alcoholic ketoacidosis. Daniel Ledesma M.D. - Related Data Allergies Allergy/AdvReac Type Severity Reaction Status Date / Time Penicillins Allergy Vomiting Verified 07/16/21 11:42 Home Meds: Home Meds Ondansetron [Zofran ODT] 4 mg PO Q6H PRN 08/10/20 [History] ALPRAZolam [Xanax] 0.5 mg PO ASDIRECTED PRN 02/18/21 [History] Acetaminophen/HYDROcodone [[place] 325-10 MG] 1 tab PO Q4H PRN #10 tab 02/20/21 [Rx] Ondansetron [Zofran ODT] 4 mg PO Q6H PRN #10 tab.dis 02/20/21 [Rx] Pantoprazole [ProTONIX] 40 mg PO DAILY #30 tab.cr 02/21/21 [Rx] Past Medical History HEENT History: Reports: Other (See Below) Other HEENT History: wears glasses Cardiovascular History: Reports: Blood Clots/VTE/DVT, Hypertension Other Cardiovascular History: hx of hypertension in the past- no medications now Respiratory History: Reports: PE Other Respiratory History: 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 Recurrent UTI's. RN MOBILE History: Reports: None Musculoskeletal History: Reports: Fracture Other Musculoskeletal History: hx of fx back and toe- no hardware Neurological History: Reports: Other (See Below) Other Neuro History: hx of motion sickness and claustrophobia Psychiatric History: Reports: Anxiety Other Psychiatric History: occasionall takes Zanax Endocrine/Metabolic History: Reports: None Other Endocrine/Metabolic History: Anorexia Insulin Pump Model and Ladies Suit Operator: None Hematologic History: Reports: None Other Hematologic History: sepsis Immunologic History: Reports: Other (See Below) Other Immunologic History: hx of sepsis x2 Oncologic (Cancer) History: Reports: None Dermatologic History: Reports: None Other Dermatologic History: DVT - Infectious Disease History Infectious Disease History: Reports: Chicken Pox, Measles Other Infectious Disease History: sepsis - Past Surgical History Head Surgeries/Procedures: Reports: None HEENT Surgical History: Reports: None Cardiovascular Surgical History: Reports: None Respiratory Surgical History: Reports: None GI Surgical History: Reports: Appendectomy, Colonoscopy Female Surgical History: Reports: Breast Biopsy Other Female Surgeries/Procedures: Right Breast Abcess Endocrine Surgical History: Reports: None Neurological Surgical History: Reports: None Musculoskeletal Surgical History: Reports: Arthroscopic Knee Other Musculoskeletal Surgeries/Procedures:: Right knee scope Oncologic Surgical History: Reports: None Dermatological Surgical History: Reports: None Social & Family History - Family History Family Medical History: No Pertinent Family History - Tobacco Use Tobacco Use Status *Q: Current Every Day Tobacco User Years of Tobacco use: 30 Packs/Tins Daily: 0.5 - Caffeine Use Caffeine Use: Reports: None - Recreational Drug Use Recreational Drug Use: No ED ROS GENERAL - Review of Systems Review Of Systems: See Below ED EXAM, GENERAL - Physical Exam Exam: See Below Course - Vital Signs Last Recorded V/S: Last Vital Signs Temp 36.6 C 07/16/21 16:11 Pulse 62 07/16/21 16:11 Resp 18 07/16/21 16:11 BP 121/73 07/16/21 16:11 Pulse Ox 97 07/16/21 16:11 - Orders/Labs/Meds Labs: Laboratory Tests 07/16/21 07/16/21 07/16/21 Range/Units 11:32 11:40 11:40 WBC 13.12 H (4.0-11.0) K/uL RBC 3.66 L (4.30-5.90) M/uL Hgb 14.1 (12.0-16.0) g/dL Hct 40.9 (36.0-46.0) % MCV 111.7 H (80.0-98.0) fL MCH 38.5 H (27.0-32.0) pg MCHC 34.5 (31.0-37.0) g/dL RDW Std Deviation 66.5 H (28.0-62.0) fl RDW Coeff of Sobia 16 H (11.0-15.0) % Plt Count 213 (150-400) K/uL MPV 10.40 (7.40-12.00) fL Neut % (Auto) 72.3 (48.0-80.0) % Lymph % (Auto) 20.0 (16.0-40.0) % Steele % (Auto) 7.1 (0.0-15.0) % Eos % (Auto) 0.2 (0.0-7.0) % Baso % (Auto) 0.4 (0.0-1.5) % Neut # (Auto) 9.5 H (1.4-5.7) K/uL Lymph # (Auto) 2.6 H (0.6-2.4) K/uL Steele # (Auto) 0.9 H (0.0-0.8) K/uL Eos # (Auto) 0.0 (0.0-0.7) K/uL Baso # (Auto) 0.1 (0.0-0.1) K/uL Nucleated RBC % 0.0 /100WBC Nucleated RBCs # 0 K/uL INR Sodium 145 (136-145) mmol/L Potassium 2.9 L (3.5-5.1) mmol/L Chloride 103 (98-107) mmol/L Carbon Dioxide 24.1 (21.0-32.0) mmol/L BUN 6 L (7.0-18.0) mg/dL Creatinine 0.6 (0.6-1.0) mg/dL Est Cr Clr Drug Dosing 95.45 mL/min Estimated GFR (MDRD) > 60.0 ml/min Glucose 143 H (74-106) mg/dL POC Glucose 167 H (70-99) mg/dL Calcium 8.4 L (8.5-10.1) mg/dL Magnesium 1.4 L (1.8-2.4) mg/dL Total Bilirubin 0.6 (0.2-1.0) mg/dL AST 563 H (15-37) IU/L ALT 205 H (14-63) IU/L Alkaline Phosphatase 262 H (46-116) U/L Troponin I < 0.050 (0.000-0.056) ng/mL Total Protein 6.0 L (6.4-8.2) g/dL Albumin 2.7 L (3.4-5.0) g/dL Globulin 3.3 (2.6-4.0) g/dL Albumin/Globulin Ratio 0.8 L (0.9-1.6) TSH, Ultra Sensitive 0.67 (0.36-3.74) uIU/mL HCG, Qual (NEG) Urine Color Urine Appearance Urine pH (5.0-8.0) Ur Specific [place] (1.001-1.035) Urine Protein (NEGATIVE) mg/dL Urine Glucose (UA) (NEGATIVE) mg/dL Urine Ketones (NEGATIVE) mg/dL Urine Occult Blood (NEGATIVE) Urine Nitrite (NEGATIVE) Urine Bilirubin (NEGATIVE) Urine Urobilinogen (<2.0) EU/dL Ur Leukocyte Esterase (NEGATIVE) Urine RBC (0-2/HPF) Urine WBC (0-5/HPF) Ur Epithelial Cells (NONE-FEW) Urine Bacteria (NEGATIVE) Urine Mucus (NONE-MOD) Salicylates 7.3 (0-20) mg/dL Urine Opiates Screen (NEGATIVE) Ur Oxycodone Screen (NEGATIVE) Urine Methadone Screen (NEGATIVE) Acetaminophen <2.0 ug/mL Ur Barbiturates Screen (NEGATIVE) Ur Phencyclidine Scrn (NEGATIVE) Ur Amphetamine Screen (NEGATIVE) U Methamphetamines Scrn (NEGATIVE) U Benzodiazepines Scrn (NEGATIVE) U Cocaine Metab Screen (NEGATIVE) U Marijuana (THC) Screen (NEGATIVE) Ethyl Alcohol 198 mg/dL SARS-CoV-2 RNA (SD) (NEGATIVE) 07/16/21 07/16/21 07/16/21 Range/Units 11:40 11:40 12:40 WBC (4.0-11.0) K/uL RBC (4.30-5.90) M/uL Hgb (12.0-16.0) g/dL Hct (36.0-46.0) % MCV (80.0-98.0) fL MCH (27.0-32.0) pg MCHC (31.0-37.0) g/dL RDW Std Deviation (28.0-62.0) fl RDW Coeff of Sobia (11.0-15.0) % Plt Count (150-400) K/uL MPV (7.40-12.00) fL Neut % (Auto) (48.0-80.0) % Lymph % (Auto) (16.0-40.0) % Steele % (Auto) (0.0-15.0) % Eos % (Auto) (0.0-7.0) % Baso % (Auto) (0.0-1.5) % Neut # (Auto) (1.4-5.7) K/uL Lymph # (Auto) (0.6-2.4) K/uL Steele # (Auto) (0.0-0.8) K/uL Eos # (Auto) (0.0-0.7) K/uL Baso # (Auto) (0.0-0.1) K/uL Nucleated RBC % /100WBC Nucleated RBCs # K/uL INR 1.07 Sodium (136-145) mmol/L Potassium (3.5-5.1) mmol/L Chloride (98-107) mmol/L Carbon Dioxide (21.0-32.0) mmol/L BUN (7.0-18.0) mg/dL Creatinine (0.6-1.0) mg/dL Est Cr Clr Drug Dosing mL/min Estimated GFR (MDRD) ml/min Glucose (74-106) mg/dL POC Glucose (70-99) mg/dL Calcium (8.5-10.1) mg/dL Magnesium (1.8-2.4) mg/dL Total Bilirubin (0.2-1.0) mg/dL AST (15-37) IU/L ALT (14-63) IU/L Alkaline Phosphatase (46-116) U/L Troponin I (0.000-0.056) ng/mL Total Protein (6.4-8.2) g/dL Albumin (3.4-5.0) g/dL Globulin (2.6-4.0) g/dL Albumin/Globulin Ratio (0.9-1.6) TSH, Ultra Sensitive (0.36-3.74) uIU/mL HCG, Qual NEGATIVE (NEG) Urine Color Urine Appearance Urine pH (5.0-8.0) Ur Specific [place] (1.001-1.035) Urine Protein (NEGATIVE) mg/dL Urine Glucose (UA) (NEGATIVE) mg/dL Urine Ketones (NEGATIVE) mg/dL Urine Occult Blood (NEGATIVE) Urine Nitrite (NEGATIVE) Urine Bilirubin (NEGATIVE) Urine Urobilinogen (<2.0) EU/dL Ur Leukocyte Esterase (NEGATIVE) Urine RBC (0-2/HPF) Urine WBC (0-5/HPF) Ur Epithelial Cells (NONE-FEW) Urine Bacteria (NEGATIVE) Urine Mucus (NONE-MOD) Salicylates (0-20) mg/dL Urine Opiates Screen (NEGATIVE) Ur Oxycodone Screen (NEGATIVE) Urine Methadone Screen (NEGATIVE) Acetaminophen ug/mL Ur Barbiturates Screen (NEGATIVE) Ur Phencyclidine Scrn (NEGATIVE) Ur Amphetamine Screen (NEGATIVE) U Methamphetamines Scrn (NEGATIVE) U Benzodiazepines Scrn (NEGATIVE) U Cocaine Metab Screen (NEGATIVE) U Marijuana (THC) Screen (NEGATIVE) Ethyl Alcohol mg/dL SARS-CoV-2 RNA (SD) NEGATIVE (NEGATIVE) 07/16/21 07/16/21 Range/Units 15:50 15:50 WBC (4.0-11.0) K/uL RBC (4.30-5.90) M/uL Hgb (12.0-16.0) g/dL Hct (36.0-46.0) % MCV (80.0-98.0) fL MCH (27.0-32.0) pg MCHC (31.0-37.0) g/dL RDW Std Deviation (28.0-62.0) fl RDW Coeff of Sobia (11.0-15.0) % Plt Count (150-400) K/uL MPV (7.40-12.00) fL Neut % (Auto) (48.0-80.0) % Lymph % (Auto) (16.0-40.0) % Steele % (Auto) (0.0-15.0) % Eos % (Auto) (0.0-7.0) % Baso % (Auto) (0.0-1.5) % Neut # (Auto) (1.4-5.7) K/uL Lymph # (Auto) (0.6-2.4) K/uL Steele # (Auto) (0.0-0.8) K/uL Eos # (Auto) (0.0-0.7) K/uL Baso # (Auto) (0.0-0.1) K/uL Nucleated RBC % /100WBC Nucleated RBCs # K/uL INR Sodium (136-145) mmol/L Potassium (3.5-5.1) mmol/L Chloride (98-107) mmol/L Carbon Dioxide (21.0-32.0) mmol/L BUN (7.0-18.0) mg/dL Creatinine (0.6-1.0) mg/dL Est Cr Clr Drug Dosing mL/min Estimated GFR (MDRD) ml/min Glucose (74-106) mg/dL POC Glucose (70-99) mg/dL Calcium (8.5-10.1) mg/dL Magnesium (1.8-2.4) mg/dL Total Bilirubin (0.2-1.0) mg/dL AST (15-37) IU/L ALT (14-63) IU/L Alkaline Phosphatase (46-116) U/L Troponin I (0.000-0.056) ng/mL Total Protein (6.4-8.2) g/dL Albumin (3.4-5.0) g/dL Globulin (2.6-4.0) g/dL Albumin/Globulin Ratio (0.9-1.6) TSH, Ultra Sensitive (0.36-3.74) uIU/mL HCG, Qual (NEG) Urine Color YELLOW Urine Appearance HAZY Urine pH 6.0 (5.0-8.0) Ur Specific [place] >= 1.030 (1.001-1.035) Urine Protein NEGATIVE (NEGATIVE) mg/dL Urine Glucose (UA) NEGATIVE (NEGATIVE) mg/dL Urine Ketones 40 H (NEGATIVE) mg/dL Urine Occult Blood NEGATIVE (NEGATIVE) Urine Nitrite POSITIVE H (NEGATIVE) Urine Bilirubin NEGATIVE (NEGATIVE) Urine Urobilinogen 0.2 (<2.0) EU/dL Ur Leukocyte Esterase NEGATIVE (NEGATIVE) Urine RBC 0-2 (0-2/HPF) Urine WBC 1-3 (0-5/HPF) Ur Epithelial Cells FEW (NONE-FEW) Urine Bacteria 2+ H (NEGATIVE) Urine Mucus MODERATE (NONE-MOD) Salicylates (0-20) mg/dL Urine Opiates Screen NEGATIVE (NEGATIVE) Ur Oxycodone Screen NEGATIVE (NEGATIVE) Urine Methadone Screen NEGATIVE (NEGATIVE) Acetaminophen ug/mL Ur Barbiturates Screen NEGATIVE (NEGATIVE) Ur Phencyclidine Scrn NEGATIVE (NEGATIVE) Ur Amphetamine Screen NEGATIVE (NEGATIVE) U Methamphetamines Scrn NEGATIVE (NEGATIVE) U Benzodiazepines Scrn NEGATIVE (NEGATIVE) U Cocaine Metab Screen NEGATIVE (NEGATIVE) U Marijuana (THC) Screen NEGATIVE (NEGATIVE) Ethyl Alcohol mg/dL SARS-CoV-2 RNA (SD) (NEGATIVE) Meds: Medications Discontinued Medications Generic Name Dose Route Start Last Admin Trade Name Freq PRN Reason Stop Dose Admin Magnesium Sulfate 2 gm/ Premix 50 mls @ 12.5 mls/hr 07/16/21 12:44 07/16/21 13:16 IV 07/16/21 16:43 12.5 mls/hr ONETIME ONE Administration Sodium Chloride 1,000 mls @ 999 mls/hr 07/16/21 12:45 07/16/21 13:17 Normal Saline IV 999 mls/hr ASDIRECTED NEVA Administration Potassium Chloride 40 meq 07/16/21 12:44 07/16/21 13:16 Potassium Chloride 10% 20 Meq/15 Ml Soln 30 Ml Ud Cup PO 07/16/21 12:45 40 meq ONETIME ONE Administration Departure - Departure Time of Disposition: 16:11 Disposition: Home, Self-Care 01 Condition: Fair Clinical Impression: Alcohol intoxication, Alcoholic hepatitis, Hypokalemia, Hypomagnesemia - Discharge Information *PRESCRIPTION DRUG MONITORING PROGRAM REVIEWED*: No *COPY OF PRESCRIPTION DRUG MONITORING REPORT IN PATIENT MELLY: No Instructions: Hypomagnesemia, Hypokalemia, Alcohol Intoxication, [id number], Alcoholic Hepatitis Referrals: PCP,None [Primary Care Provider] - Forms: ED Department Discharge Additional Instructions: You were evaluated today on an emergent basis. At this time your labs did reveal that you have some inflammation in your liver likely secondary to your alcohol use. Your alcohol was significantly elevated even though you had stopped drinking last night. This is a significant amount of alcohol and I recommend you follow-up with your primary care physician for evaluation for possible alcohol rehabilitation. Given the inflammation in your liver if you do continue to drink alcohol this will likely affect your life and may even result in . I recommend that you use an [id number] multivitamin daily and take thiamine and B12. If you have any worsening symptoms I do recommend that you follow-up with the emergency department here. Otherwise follow-up with primary care in 2 to 3 days. [facility] [address] [place] [address] [facility] [address] [place] [id number] The patient is informed of any results of their evaluation and diagnostic workup and all questions are answered. They are given discharge instructions and return precautions. The patient is stable for discharge. The patient states they understand and agree with the plan and that they will return if their symptoms get worse or if they have any new concerns. The following information is given to patients seen in the emergency department who are being discharged to home. This information is to outline your options for follow-up care. We provide all patients seen in our emergency department with a follow-up referral. The need for follow-up, as well as the timing and circumstances, are variable depending upon the specifics of your emergency department visit. If you don't have a primary care physician on staff, we will provide you with a referral. We always advise you to contact your personal physician following an emergency department visit to inform them of the circumstance of the visit and for follow-up with them and/or the need for any referrals to a consulting specialist. The emergency department will also refer you to a specialist when appropriate. This referral assures that you have the opportunity for follow-up care with a specialist. All of these measure are taken in an effort to provide you with optimal care, which includes your follow-up. Under all circumstances we always encourage you to contact your private physician who remains a resource for coordinating your care. When calling for follow-up care, please make the office aware that this follow-up is from your recent emergency room visit. If for any reason you are refused follow-up, please contact the [facility] Emergency Department at and asked to speak to the emergency department charge nurse. Sepsis Event Note (ED) - Evaluation Sepsis Screening Result: No Definite Risk
--- NOTE | 2021-07-16 19:33 | PCM.EKG ---
#1 Interpretation EKG Date: 07/16/21 Time: 11:48 Rhythm: NSR Rate (Beats/Min): 41 [place]: Normal P-Wave: Present QRS: Normal ST-T: Normal (T wave inversion in V4-v6 unchanged) QT: Prolonged Comparison: No Change (02/24/21) EKG Interpretation Comments: Sinus Bradycardia with anterolateral T wave inversions unchaged from prior
== END 2021-07-16 16:11 | disposition home or self-care (01) ==
LOC: MW.ED 11:35
DX: K70.10 Alcoholic hepatitis without ascites (principal); F10.129 Alcohol abuse with intoxication, unspecified; E87.6 Hypokalemia; R82.4 Acetonuria; E83.42 Hypomagnesemia; I10 Essential (primary) hypertension; Z88.0 Allergy status to penicillin; Z79.899 Other long term (current) drug therapy; Z86.718 Personal history of other venous thrombosis and embolism; Z72.0 Tobacco use; Z20.822 Contact with and (suspected) exposure to COVID-19; Y90.6 Blood alcohol level of 120-199 mg/100 ml
CPT/HCPCS: 36415; 71045; 80053; 80143; 80179; 80305; 80307; 81001; 82947; 83735; 84443; 84484; 84703; 85025; 85610; 87635; 93005; 96365; 96366; 99285; A9270; J3475; J7030; U0002

== ENCOUNTER 2021-10-11 00:30 | Emergency (ER) | payer SELFPAY ==
[2021-10-11] MEDS ORDERED: Sodium Chloride 0.9% 2.5 ML Syringe FLUSH PRN (01:22)
[2021-10-11] MEDS ORDERED: Sodium Chloride 0.9% 10 ML Syringe FLUSH PRN (01:22)
[2021-10-11] MEDS ORDERED: Bisacodyl 5 MG Tab PO ONE (01:23)
[2021-10-11] MEDS ORDERED: Magnesium Citrate Solution 296 ML Bottle PO ONE ×2 (01:24→01:27)
[2021-10-11] MEDS ORDERED: Bisacodyl 10 MG Supp RECTAL ONE (01:24)
--- NOTE | 2021-10-11 02:03 | CT ---
Indication: Abdominal pain. Technique: Multiple contiguous axial images were obtained from the lung bases through the symphysis pubis without intravenous contrast enhancement. Please note that all CT scans at this facility use dose modulation, iterative reconstruction, and/or weight-based dosing when appropriate to reduce radiation dose to as low as reasonably achievable. Comparison: February 19, 2021. Findings: The lung bases are clear. No infiltrate, pleural effusion, or pneumothorax is identified. The heart is normal in size. Coronary artery calcifications are identified. Extensive fatty infiltration of the liver is identified at. There is relative sparing of the left lobe of the liver. The spleen, pancreas, adrenals, and kidneys are normal. No intrahepatic biliary ductal dilatation is identified. No hydronephrosis is identified. The liver measures 18 cm in maximum dimension. In the pelvis, the urinary bladder is normal. The uterus is normal. The small and large bowel are normal in caliber. Only a small amount of stool is identified within the colon. Mild colonic diverticulosis is identified. There is no evidence of diverticulitis. At the level of the ascending colon, thickening of the wall of the colon is identified. This is most consistent with a nonspecific colitis. The appendix is not clearly identified. No free fluid or free air is identified within the abdomen or pelvis. The aorta is normal in caliber. No lytic or blastic lesions of the spine are identified. Impression: Findings consistent with a nonspecific colitis involving the ascending colon. Diffuse fatty infiltration of the liver. Mild hepatomegaly. Please note that all CT scans at this facility use dose modulation, iterative reconstruction, and/or weight-based dosing when appropriate to reduce radiation dose to as low as reasonably achievable. Dictated by Nan Lanza MD @ 10/11/2021 2:02:05 AM (Electronically Signed)
[2021-10-11] MEDS ORDERED: Ondansetron 4 MG Tab.DIS PO ONE (02:05)
[2021-10-11 02:31] LABS: BLOOD UREA NITROGEN,BUN 4 mg/dL (7.0-18.0); CARBON DIOXIDE,CO2 24.2 mmol/L (21.0-32.0); CHLORIDE,CL 97 mmol/L (98-107); GLUCOSE RANDOM 75 mg/dL (74-106); POTASSIUM,K 3.3 mmol/L (3.5-5.1); SODIUM,NA 138 mmol/L (136-145)
--- NOTE | 2021-10-11 02:56 | EDM.PDOC ---
ED HPI GENERAL MEDICAL PROBLEM - General Chief Complaint: Gastrointestinal Problem Stated Complaint: SEVERE CONSTIPATION Time Seen by Provider: 10/11/21 00:31 - History of Present Illness INITIAL COMMENTS - FREE TEXT/NARRATIVE: HISTORY AND PHYSICAL: History of present illness: This is a 46-year-old female who presents ER today secondary to constipation times approximately 2 weeks. Patient reports that this is abnormal for her. Patient denies any recent fevers, shakes, chills, vomiting, diarrhea, dysuria, frequency, urgency. Patient tolerating p.o. solids and liquids well at home. Patient reports she is used multiple laxatives and enemas at home without any improvement with her bowel movements. Patient present she has an appointment this morning with her PCP but she can wait any longer. Review of systems: As per history of present illness and below otherwise all systems reviewed and negative. Past medical history: As per history of present illness and as reviewed below otherwise noncontributory. Surgical history: As per history of present illness and as reviewed below otherwise noncontributory. Social history: No reported history of drug abuse. Family history: As per history of present illness and as reviewed below otherwise noncontributory. Physical exam: This patient was seen and evaluated during the 2019 SARS-CoV-2 novel coronavirus pandemic period. Community viral transmission is ongoing at time of this encounter and the emergency department is operating under pandemic response procedures. Constitutional: Patient is oriented to person, place, and time. Appears well- developed and well-nourished. No distress. HEENT: Moist mucous membranes Head: Normocephalic and atraumatic Eyes: Right eye exhibits no discharge. Left eye exhibits no discharge. No scleral icterus Neck: Normal range of motion. No tracheal deviation present. Cardiovascular: Normal rate and regular rhythm. Pulmonary: Effort normal, no respiratory distress. Abd: Soft, nondistended, no rebound/guarding, no psoas or obturator signs, no tenderness at Mcberney's point, no Arroyo's sign. Pt does not present with an exam that would be consistent with an acute surgical abdomen at this time. Mild tenderness palpation left lower quadrant. Musculoskeletal: Normal range of motion Neurologic: Alert and oriented to person, place and time. Skin: [place], warm and dry. Psychiatric: Normal mood and affect. Behavior is normal. Judgment and thought content normal. Nursing note and vital signs have been reviewed Diagnostics: [] Therapeutics: [] Assessment and plan: 46-year-old female with a history of appendectomy who presents ER today with abdominal pain/bloatedness with constipation x2 weeks. Patient has used multiple stool softeners a day without any results. Patient's ER evaluation has been unr emarkable. Patient does have some elevated LFTs with fatty infiltration on the CT scan however no evidence of ductal dilatation. Patient has been given Dulcolax 2 tabs p.o., to [place] and a bottle of mag citrate to initiate bowel movement. Given the normal CT and unremarkable labs patient be discharged home to resume her outpatient follow-up for her constipation issues. Definitive disposition and diagnosis as appropriate pending reevaluation and review of above. - Related Data Allergies Allergy/AdvReac Type Severity Reaction Status Date / Time Penicillins Allergy Vomiting Verified 10/11/21 00:58 Home Meds: Home Meds Ondansetron [Zofran ODT] 4 mg PO Q6H PRN 08/10/20 [History] ALPRAZolam [Xanax] 0.5 mg PO ASDIRECTED PRN 02/18/21 [History] Acetaminophen/HYDROcodone [[place] 325-10 MG] 1 tab PO Q4H PRN #10 tab 02/20/21 [Rx] Ondansetron [Zofran ODT] 4 mg PO Q6H PRN #10 tab.dis 02/20/21 [Rx] Pantoprazole [ProTONIX] 40 mg PO DAILY #30 tab.cr 02/21/21 [Rx] Past Medical History HEENT History: Reports: Other (See Below) Other HEENT History: wears glasses Cardiovascular History: Reports: Blood Clots/VTE/DVT, Hypertension Other Cardiovascular History: hx of hypertension in the past- no medications now Respiratory History: Reports: PE Other Respiratory History: 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 Recurrent UTI's. GERM DRIER History: Reports: None Musculoskeletal History: Reports: Fracture Other Musculoskeletal History: hx of fx back and toe- no hardware Neurological History: Reports: Other (See Below) Other Neuro History: hx of motion sickness and claustrophobia Psychiatric History: Reports: Anxiety Other Psychiatric History: occasionall takes Zanax Endocrine/Metabolic History: Reports: None Other Endocrine/Metabolic History: Anorexia Insulin Pump Model and Metal Patternmaker: None Hematologic History: Reports: None Other Hematologic History: sepsis Immunologic History: Reports: Other (See Below) Other Immunologic History: hx of sepsis x2 Oncologic (Cancer) History: Reports: None Dermatologic History: Reports: None Other Dermatologic History: DVT - Infectious Disease History Infectious Disease History: Reports: Chicken Pox, Measles Other Infectious Disease History: sepsis - Past Surgical History Head Surgeries/Procedures: Reports: None HEENT Surgical History: Reports: None Cardiovascular Surgical History: Reports: None Respiratory Surgical History: Reports: None GI Surgical History: Reports: Appendectomy, Colonoscopy Female Surgical History: Reports: Breast Biopsy Other Female Surgeries/Procedures: Right Breast Abcess Endocrine Surgical History: Reports: None Neurological Surgical History: Reports: None Musculoskeletal Surgical History: Reports: Arthroscopic Knee Other Musculoskeletal Surgeries/Procedures:: Right knee scope Oncologic Surgical History: Reports: None Dermatological Surgical History: Reports: None Social & Family History - Family History Family Medical History: No Pertinent Family History - Caffeine Use Caffeine Use: Reports: None - Recreational Drug Use Recreational Drug Use: No ED ROS GENERAL - Review of Systems Review Of Systems: See Below ED EXAM, GENERAL - Physical Exam Exam: See Below Course - Vital Signs Last Recorded V/S: Last Vital Signs Temp Pulse 86 10/11/21 02:42 Resp 18 10/11/21 02:42 BP 117/74 10/11/21 02:42 Pulse Ox 96 10/11/21 02:42 - Orders/Labs/Meds Orders: Active Orders 24 hr Category Date Time Status Sodium Chloride 0.9% [Saline Flush] Med 10/11/21 01:22 Active 10 ml FLUSH ASDIRECTED PRN Sodium Chloride 0.9% [Saline Flush] Med 10/11/21 01:22 Active 2.5 ml FLUSH ASDIRECTED PRN Saline Lock Insert [OM.PC] Stat Oth 10/11/21 01:22 Ordered Medication Orders Sodium Chloride (Sodium Chloride 0.9% 10 Ml Syringe) 10 ml FLUSH ASDIRECTED PRN PRN Reason: Keep Vein Open Sodium Chloride (Sodium Chloride 0.9% 2.5 Ml Syringe) 2.5 ml FLUSH ASDIRECTED PRN PRN Reason: Keep Vein Open Labs: Laboratory Tests 10/11/21 10/11/21 Range/Units 01:53 01:53 WBC 13.34 H (4.0-11.0) K/uL RBC 3.74 L (4.30-5.90) M/uL Hgb 14.7 (12.0-16.0) g/dL Hct 41.9 (36.0-46.0) % MCV 112.0 H (80.0-98.0) fL MCH 39.3 H (27.0-32.0) pg MCHC 35.1 (31.0-37.0) g/dL RDW Std Deviation 55.8 (28.0-62.0) fl RDW Coeff of Sobia 14 (11.0-15.0) % Plt Count 187 (150-400) K/uL MPV 10.20 (7.40-12.00) fL Neut % (Auto) 78.0 (48.0-80.0) % Lymph % (Auto) 13.0 L (16.0-40.0) % [place] % (Auto) 8.6 (0.0-15.0) % Eos % (Auto) 0.2 (0.0-7.0) % Baso % (Auto) 0.2 (0.0-1.5) % Neut # (Auto) 10.4 H (1.4-5.7) K/uL Lymph # (Auto) 1.7 (0.6-2.4) K/uL [place] # (Auto) 1.2 H (0.0-0.8) K/uL Eos # (Auto) 0.0 (0.0-0.7) K/uL Baso # (Auto) 0.0 (0.0-0.1) K/uL Nucleated RBC % 0.0 /100WBC Nucleated RBCs # 0 K/uL Sodium 138 (136-145) mmol/L Potassium 3.3 L (3.5-5.1) mmol/L Chloride 97 L (98-107) mmol/L Carbon Dioxide 24.2 (21.0-32.0) mmol/L BUN 4 L (7.0-18.0) mg/dL Creatinine 0.8 (0.6-1.0) mg/dL Est Cr Clr Drug Dosing 62.25 mL/min Estimated GFR (MDRD) > 60.0 ml/min Glucose 75 (74-106) mg/dL Calcium 8.7 (8.5-10.1) mg/dL Total Bilirubin 1.4 H (0.2-1.0) mg/dL AST 267 H (15-37) IU/L ALT 121 H (14-63) IU/L Alkaline Phosphatase 507 H (46-116) U/L Total Protein 7.0 (6.4-8.2) g/dL Albumin 2.7 L (3.4-5.0) g/dL Globulin 4.3 H (2.6-4.0) g/dL Albumin/Globulin Ratio 0.6 L (0.9-1.6) Meds: Medications Generic Name Dose Route Start Last Admin Trade Name Freq PRN Reason Stop Dose Admin Sodium Chloride 10 ml 10/11/21 01:22 Sodium Chloride 0.9% 10 Ml Syringe FLUSH ASDIRECTED PRN Keep Vein Open Sodium Chloride 2.5 ml 10/11/21 01:22 Sodium Chloride 0.9% 2.5 Ml Syringe FLUSH ASDIRECTED PRN Keep Vein Open Discontinued Medications Generic Name Dose Route Start Last Admin Trade Name Freq PRN Reason Stop Dose Admin Bisacodyl 20 mg 10/11/21 01:23 10/11/21 01:50 Bisacodyl 5 Mg Tab PO 10/11/21 01:24 20 mg ONETIME ONE Administration Bisacodyl 20 mg 10/11/21 01:24 10/11/21 01:49 Bisacodyl 10 Mg Supp RECTAL 10/11/21 01:25 20 mg ONETIME ONE Administration Magnesium Citrate 235 ml 10/11/21 01:24 10/11/21 01:50 Magnesium Citrate Solution 296 Ml Bottle PO 10/11/21 01:25 235 ml ONETIME ONE Administration Magnesium Citrate 296 ml 10/11/21 01:27 10/11/21 01:52 Magnesium Citrate Solution 296 Ml Bottle PO 10/11/21 01:28 Not Given ONETIME ONE Ondansetron HCl 4 mg 10/11/21 02:05 10/11/21 02:09 Ondansetron 4 Mg Tab.Dis PO 10/11/21 02:06 4 mg ONETIME ONE Administration Departure - Departure Time of Disposition: 02:55 Disposition: Home, Self-Care 01 Condition: Good Clinical Impression: Constipation - Discharge Information Instructions: Constipation, Adult, [id number] Referrals: Eben Odom DO [Primary Care Provider] - Additional Instructions: Your seen and evaluated the ER today secondary to concerns regarding your constipation. Your CT scan of blood test did not reveal any severe cause for your constipation. You have been given Dulcolax tablets and suppositories here in the ED as well as a bottle of mag citrate to take. Please keep your appointment as scheduled with your doctor tomorrow for further evaluation, appropriate referrals and treatment of your constipation. Please return the ER if develop any new or concerning symptoms. The following information is given to patients seen in the emergency department who are being discharged to home. This information is to outline your options for follow-up care. We provide all patients seen in our emergency department with a follow-up referral. The need for follow-up, as well as the timing and circumstances, are variable depending upon the specifics of your emergency department visit. If you don't have a primary care physician on staff, we will provide you with a referral. We always advise you to contact your personal physician following an emergency department visit to inform them of the circumstance of the visit and for follow-up with them and/or the need for any referrals to a consulting specialist. The emergency department will also refer you to a specialist when appropriate. This referral assures that you have the opportunity for follow-up care with a specialist. All of these measure are taken in an effort to provide you with optimal care, which includes your follow-up. Under all circumstances we always encourage you to contact your private physician who remains a resource for coordinating your care. When calling for follow-up care, please make the office aware that this follow-up is from your recent emergency room visit. If for any reason you are refused follow-up, please contact the [facility] Emergency Department at and asked to speak to the emergency department charge nurse. [facility] - Primary Care [address] [place] [id number] [facility] [address] [place] [address] Sepsis Event Note (ED) - Evaluation Sepsis Screening Result: No Definite Risk - Focused Exam Vital Signs: Vital Signs Pulse Resp BP Pulse Ox 10/11/21 02:42 86 18 117/74 96 10/11/21 00:59 123 H 18 163/104 H 97 - My Orders Last 24 Hours: My Active Orders 10/11/21 01:22 Sodium Chloride 0.9% [Saline Flush] 10 ml FLUSH ASDIRECTED PRN Sodium Chloride 0.9% [Saline Flush] 2.5 ml FLUSH ASDIRECTED PRN Saline Lock Insert [OM.PC] Stat - Assessment/Plan Last 24 Hours: My Active Orders 10/11/21 01:22 Sodium Chloride 0.9% [Saline Flush] 10 ml FLUSH ASDIRECTED PRN Sodium Chloride 0.9% [Saline Flush] 2.5 ml FLUSH ASDIRECTED PRN Saline Lock Insert [OM.PC] Stat
== END 2021-10-11 02:59 | disposition home or self-care (01) ==
LOC: MW.ED 00:30
DX: K59.00 Constipation, unspecified (principal); I10 Essential (primary) hypertension; Z88.0 Allergy status to penicillin; Z79.899 Other long term (current) drug therapy
CPT/HCPCS: 36415; 74176; 80053; 85025; 99284; A9270

== ENCOUNTER 2021-10-11 09:13 | Emergency (ER) | payer SELFPAY ==
--- NOTE | 2021-10-11 09:35 | EDM.PDOC ---
ED HPI GENERAL MEDICAL PROBLEM - General Chief Complaint: Gastrointestinal Problem Stated Complaint: THROWING UP BLOOD Time Seen by Provider: 10/11/21 09:16 Source of Information: Reports: Patient History Limitations: Reports: No Limitations - History of Present Illness INITIAL COMMENTS - FREE TEXT/NARRATIVE: Is a 46-year-old female who presents for vomiting up blood. States she was here last night for constipation and was given enema and also had CT scan not showing obstruction and states that she has had a bowel movement today she has vomited noticed blood in it. She does not feel tired or weak and fatigue denies any blood in her stool denies abdominal pain denies any other complaints. Lowerabdomen Pain Score (Numeric/FACES): 9 - Related Data Allergies Allergy/AdvReac Type Severity Reaction Status Date / Time Penicillins Allergy Vomiting Verified 10/11/21 09:16 Home Meds: Home Meds Ondansetron [Zofran ODT] 4 mg PO Q6H PRN 08/10/20 [History] ALPRAZolam [Xanax] 0.5 mg PO ASDIRECTED PRN 02/18/21 [History] Famotidine 40 mg PO DAILY 10/11/21 [History] Promethazine [Phenergan] 25 mg PO Q6H PRN 10/11/21 [History] Past Medical History HEENT History: Reports: Other (See Below) Other HEENT History: wears glasses Cardiovascular History: Reports: Blood Clots/VTE/DVT, Hypertension Other Cardiovascular History: hx of hypertension in the past- no medications now Respiratory History: Reports: PE Other Respiratory History: 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 Recurrent UTI's. TRACK WORKER History: Reports: None Musculoskeletal History: Reports: Fracture Other Musculoskeletal History: hx of fx back and toe- no hardware Neurological History: Reports: Other (See Below) Other Neuro History: hx of motion sickness and claustrophobia Psychiatric History: Reports: Anxiety Other Psychiatric History: occasionall takes Zanax Endocrine/Metabolic History: Reports: None Other Endocrine/Metabolic History: Anorexia Insulin Pump Model and Duck Bill Operator: None Hematologic History: Reports: None Other Hematologic History: sepsis Immunologic History: Reports: Other (See Below) Other Immunologic History: hx of sepsis x2 Oncologic (Cancer) History: Reports: None Dermatologic History: Reports: None Other Dermatologic History: DVT - Infectious Disease History Infectious Disease History: Reports: Chicken Pox, Measles Other Infectious Disease History: sepsis - Past Surgical History Head Surgeries/Procedures: Reports: None HEENT Surgical History: Reports: None Cardiovascular Surgical History: Reports: None Respiratory Surgical History: Reports: None GI Surgical History: Reports: Appendectomy, Colonoscopy Female Surgical History: Reports: Breast Biopsy Other Female Surgeries/Procedures: Right Breast Abcess Endocrine Surgical History: Reports: None Neurological Surgical History: Reports: None Musculoskeletal Surgical History: Reports: Arthroscopic Knee Other Musculoskeletal Surgeries/Procedures:: Right knee scope Oncologic Surgical History: Reports: None Dermatological Surgical History: Reports: None Social & Family History - Family History Family Medical History: No Pertinent Family History - Tobacco Use Tobacco Use Status *Q: Current Every Day Tobacco User Years of Tobacco use: 30 Packs/Tins Daily: 1.5 - Caffeine Use Caffeine Use: Reports: Tea - Recreational Drug Use Recreational Drug Use: No ED ROS GENERAL - Review of Systems Review Of Systems: See Below Constitutional: Reports: No Symptoms HEENT: Reports: No Symptoms Respiratory: Reports: No Symptoms Cardiovascular: Reports: No Symptoms Endocrine: Reports: No Symptoms GI/Abdominal: Reports: Hematemesis : Reports: No Symptoms Musculoskeletal: Reports: No Symptoms Skin: Reports: No Symptoms Neurological: Reports: No Symptoms Psychiatric: Reports: No Symptoms Hematologic/Lymphatic: Reports: No Symptoms Immunologic: Reports: No Symptoms ED EXAM, GI/ABD - Physical Exam Exam: See Below Exam Limited By: No Limitations General Appearance: Alert, WD/WN, No Apparent Distress Eyes: Bilateral: EOMI Ears: Normal External Exam Head: Atraumatic Neck: Normal Inspection Respiratory/Chest: No Respiratory Distress, Lungs Clear, Normal Breath Sounds Cardiovascular: Normal Peripheral Pulses, Regular Rate, Rhythm GI/Abdominal Exam: Normal Bowel Sounds, Soft, Non-Tender Rectal (Female) Exam: Heme - Stool Back Exam: Normal Inspection Extremities: Normal Inspection, Normal Range of Motion Neurological: Alert, Oriented, Normal Cognition, Normal Gait Course - Vital Signs Last Recorded V/S: Last Vital Signs Temp 98.7 F 12/10/21 11:45 Pulse 82 10/11/21 11:45 Resp 18 10/11/21 11:45 BP 108/72 10/11/21 11:45 Pulse Ox 96 10/11/21 11:45 - Orders/Labs/Meds Labs: Laboratory Tests 10/11/21 10/11/21 10/11/21 Range/Units 09:30 09:30 09:30 WBC 14.09 H (4.0-11.0) K/uL RBC 3.66 L (4.30-5.90) M/uL Hgb 14.2 (12.0-16.0) g/dL Hct 40.5 (36.0-46.0) % MCV 110.7 H (80.0-98.0) fL MCH 38.8 H (27.0-32.0) pg MCHC 35.1 (31.0-37.0) g/dL RDW Std Deviation 55.6 (28.0-62.0) fl RDW Coeff of [place] 14 (11.0-15.0) % Plt Count 191 (150-400) K/uL MPV 10.30 (7.40-12.00) fL Neut % (Auto) 82.8 H (48.0-80.0) % Lymph % (Auto) 9.0 L (16.0-40.0) % [place] % (Auto) 7.9 (0.0-15.0) % Eos % (Auto) 0.1 (0.0-7.0) % Baso % (Auto) 0.2 (0.0-1.5) % Neut # (Auto) 11.7 H (1.4-5.7) K/uL Lymph # (Auto) 1.3 (0.6-2.4) K/uL [place] # (Auto) 1.1 H (0.0-0.8) K/uL Eos # (Auto) 0.0 (0.0-0.7) K/uL Baso # (Auto) 0.0 (0.0-0.1) K/uL Nucleated RBC % 0.0 /100WBC Nucleated RBCs # 0 K/uL INR 1.10 APTT 24.8 (18.6-31.3) SEC Sodium 136 (136-145) mmol/L Potassium 3.2 L (3.5-5.1) mmol/L Chloride 96 L (98-107) mmol/L Carbon Dioxide 21.6 (21.0-32.0) mmol/L BUN 4 L (7.0-18.0) mg/dL Creatinine 0.7 (0.6-1.0) mg/dL Est Cr Clr Drug Dosing 71.14 mL/min Estimated GFR (MDRD) > 60.0 ml/min Glucose 98 (74-106) mg/dL Calcium 8.7 (8.5-10.1) mg/dL Total Bilirubin 1.6 H (0.2-1.0) mg/dL AST 215 H (15-37) IU/L ALT 109 H (14-63) IU/L Alkaline Phosphatase 485 H (46-116) U/L Total Protein 6.9 (6.4-8.2) g/dL Albumin 2.7 L (3.4-5.0) g/dL Globulin 4.2 H (2.6-4.0) g/dL Albumin/Globulin Ratio 0.6 L (0.9-1.6) Blood Type Antibody Screen 10/11/21 Range/Units 09:56 WBC (4.0-11.0) K/uL RBC (4.30-5.90) M/uL Hgb (12.0-16.0) g/dL Hct (36.0-46.0) % MCV (80.0-98.0) fL MCH (27.0-32.0) pg MCHC (31.0-37.0) g/dL RDW Std Deviation (28.0-62.0) fl RDW Coeff of [place] (11.0-15.0) % Plt Count (150-400) K/uL MPV (7.40-12.00) fL Neut % (Auto) (48.0-80.0) % Lymph % (Auto) (16.0-40.0) % [place] % (Auto) (0.0-15.0) % Eos % (Auto) (0.0-7.0) % Baso % (Auto) (0.0-1.5) % Neut # (Auto) (1.4-5.7) K/uL Lymph # (Auto) (0.6-2.4) K/uL [place] # (Auto) (0.0-0.8) K/uL Eos # (Auto) (0.0-0.7) K/uL Baso # (Auto) (0.0-0.1) K/uL Nucleated RBC % /100WBC Nucleated RBCs # K/uL INR APTT (18.6-31.3) SEC Sodium (136-145) mmol/L Potassium (3.5-5.1) mmol/L Chloride (98-107) mmol/L Carbon Dioxide (21.0-32.0) mmol/L BUN (7.0-18.0) mg/dL Creatinine (0.6-1.0) mg/dL Est Cr Clr Drug Dosing mL/min Estimated GFR (MDRD) ml/min Glucose (74-106) mg/dL Calcium (8.5-10.1) mg/dL Total Bilirubin (0.2-1.0) mg/dL AST (15-37) IU/L ALT (14-63) IU/L Alkaline Phosphatase (46-116) U/L Total Protein (6.4-8.2) g/dL Albumin (3.4-5.0) g/dL Globulin (2.6-4.0) g/dL Albumin/Globulin Ratio (0.9-1.6) Blood Type A POSITIVE Antibody Screen NEGATIVE Meds: Medications Discontinued Medications Generic Name Dose Route Start Last Admin Trade Name Freq PRN Reason Stop Dose Admin Ondansetron HCl 4 mg 10/11/21 11:07 10/11/21 11:28 Ondansetron 4 Mg/2 Ml Sdv IVPUSH 10/11/21 11:08 4 mg ONETIME ONE Administration - Re-Assessments/Exams Free Text/Narrative Re-Assessment/Exam: 10/11/21 10:26 Patient guaiac is negative her hemoglobin is also stable. Patient also states she is now having bowel movements and feels a lot better. Will likely be discharged home. Departure - Departure Time of Disposition: 10:27 Disposition: Home, Self-Care 01 Condition: Good Clinical Impression: Hematemesis - Discharge Information *PRESCRIPTION DRUG MONITORING PROGRAM REVIEWED*: Not Applicable *COPY OF PRESCRIPTION DRUG MONITORING REPORT IN PATIENT MELLY: Not Applicable Instructions: Hematemesis Referrals: PCP,None [Primary Care Provider] - Forms: ED Department Discharge Additional Instructions: You were seen here today for vomiting of blood. Your hemoglobin level was normal he denies any blood in the stool this may have been due to you vomiting or have a small tear somewhere in your esophagus causing the blood to come. You currently are not profusely vomited up blood your vital signs are stable and you are now also having better bowel movements. We recommend you continue to watch this at home if the symptoms are worse please return to the ED otherwise follow- up to primary care physician. The following information is given to patients seen in the emergency department who are being discharged to home. This information is to outline your options for follow-up care. We provide all patients seen in our emergency department with a follow-up referral. The need for follow-up, as well as the timing and circumstances, are variable depending upon the specifics of your emergency department visit. If you don't have a primary care physician on staff, we will provide you with a referral. We always advise you to contact your personal physician following an emergency department visit to inform them of the circumstance of the visit and for follow-up with them and/or the need for any referrals to a consulting specialist. The emergency department will also refer you to a specialist when appropriate. This referral assures that you have the opportunity for follow-up care with a specialist. All of these measure are taken in an effort to provide you with optimal care, which includes your follow-up. Under all circumstances we always encourage you to contact your private physician who remains a resource for coordinating your care. When calling for follow-up care, please make the office aware that this follow-up is from your recent emergency room visit. If for any reason you are refused follow-up, please contact the [facility] Emergency Department at and asked to speak to the emergency department charge nurse. Please follow up with your primary care physician. If you do not have a primary care physician, see below: [facility] [address] [place] [id number] [facility] [address] [place] [id number] Sepsis Event Note (ED) - Evaluation Sepsis Screening Result: No Definite Risk - Focused Exam Vital Signs: Vital Signs Temp Pulse Resp BP Pulse Ox 10/11/21 11:45 98.7 F 82 18 108/72 96 10/11/21 10:43 99.0 F 97 18 106/70 97 10/11/21 09:17 98.2 F 73 18 156/91 H 96 - Assessment/Plan Plan: This is a 46-year-old female who was seen today for vomiting of blood. Patient stool guaiac is negative. Patient looks well on exam not tachy
[2021-10-11 10:02] LABS: BLOOD UREA NITROGEN,BUN 4 mg/dL (7.0-18.0); CARBON DIOXIDE,CO2 21.6 mmol/L (21.0-32.0); CHLORIDE,CL 96 mmol/L (98-107); GLUCOSE RANDOM 98 mg/dL (74-106); POTASSIUM,K 3.2 mmol/L (3.5-5.1); SODIUM,NA 136 mmol/L (136-145)
[2021-10-11] MEDS ORDERED: Ondansetron 4 MG/2 ML SDV IVPUSH ONE (11:07)
== END 2021-10-11 11:47 | disposition home or self-care (01) ==
LOC: MW.ED 09:13
DX: K92.0 Hematemesis (principal); I10 Essential (primary) hypertension; Z86.718 Personal history of other venous thrombosis and embolism; Z88.0 Allergy status to penicillin; Z72.0 Tobacco use
CPT/HCPCS: 36415; 80053; 85025; 85610; 85730; 86850; 86900; 86901; 96374; 99284; J2405

== ENCOUNTER 2021-10-16 20:16 | Emergency (ER) | payer SELFPAY ==
[2021-10-16] MEDS ORDERED: Sodium Chloride 0.9% 10 ML Syringe FLUSH PRN (21:48)
[2021-10-16] MEDS ORDERED: Sodium Chloride 0.9% 2.5 ML Syringe FLUSH PRN (21:48)
[2021-10-16] MEDS ORDERED: Ondansetron 4 MG/2 ML SDV IVPUSH ONE (21:48)
[2021-10-16] MEDS ORDERED: Sodium Chloride 0.9% 1,000 ML IV ONE (21:48)
--- NOTE | 2021-10-16 21:52 | EDM.PDOC ---
ED HPI GENERAL MEDICAL PROBLEM - General Chief Complaint: Gastrointestinal Problem Stated Complaint: VOMITING UP BLOOD Time Seen by Provider: 10/16/21 21:41 - History of Present Illness INITIAL COMMENTS - FREE TEXT/NARRATIVE: History of present illness: [] This patient with chronic constipation reports he cannot have BM for the last 2 days. She was here 5 days ago with constipation and hematemesis. She has nothing but blood with her efforts to have a bowel movement now but no solid stool. She was here 5 days ago with complaint of hematemesis and blood in her stool but her stool was heme-negative at that time. The patient had upper and lower GI recently. Patient symptoms were relatively well controlled with cathartic laxatives last time she was here 5 days ago. She had a good BM 5 days ago but has had trouble since. She has a history of diverticulosis diagnosed by her endoscopies. She is also been told she has an ulcer for which she is supposed to take famotidine but she is not taking it because her prescription ran out and apparently she was unaware that it is [id number]. Review of systems: As per history of present illness and below otherwise all systems reviewed and negative. Past medical history: As per history of present illness and as reviewed below otherwise noncontributory. Surgical history: As per history of present illness and as reviewed below otherwise noncontributory. Social history: No reported history of drug or alcohol abuse. Family history: As per history of present illness and as reviewed below otherwise noncontributory. Physical exam: Constitutional - well developed, well-nourished and in no acute distress HEENT - normocephalic, no evidence of trauma - external nose and mouth normal - no mass in neck and no JVD - mucosae moist EYES - full EOM, PERRL, no icterus - no evidence of inflammation, injection, or drainage Respiratory - no respiratory distress, equal bilateral expansion, lungs clear to auscultation and no abnormal lung sounds Cardiovascular - Regular Rhythm with S1 and S2 appreciated and no murmur, gallop or rub. GI - abdomen soft without distension or organomegaly - normal bowel sounds - no guard or rebound Rectal-perianal soft tissues there is hemorrhoidal tags that are hemostatic. The rectal vault is empty. The residue in the rectal vault is red and heme positive. Musculoskeletal no gross deformity of long bones or joints - no tenderness, swelling or edema Neurologic - Alert and oriented times four - CN II-XII grossly intact - motor sensory and coordination symmetrically normal Psychiatric - appropriate mood and affect with normal thought content Hematologic - No petechiae or purpura - mucosa appropriate color and sclera not pale - normal nail bed color and refill Integument - no rash or evidence of trauma - normal turgor Diagnostics: [] Therapeutics: [] Impression: [] Plan: [] Definitive disposition and diagnosis as appropriate pending reevaluation and review of above. Abdomen Pain Score (Numeric/FACES): 5 - Related Data Allergies Allergy/AdvReac Type Severity Reaction Status Date / Time Penicillins Allergy Vomiting Verified 10/16/21 21:34 Home Meds: Home Meds Ondansetron [Zofran ODT] 4 mg PO Q6H PRN 08/10/20 [History] ALPRAZolam [Xanax] 0.5 mg PO ASDIRECTED PRN 02/18/21 [History] Famotidine 40 mg PO DAILY 10/11/21 [History] Promethazine [Phenergan] 25 mg PO Q6H PRN 10/11/21 [History] Past Medical History HEENT History: Reports: Other (See Below) Other HEENT History: wears glasses Cardiovascular History: Reports: Blood Clots/VTE/DVT, Hypertension Other Cardiovascular History: hx of hypertension in the past- no medications now Respiratory History: Reports: PE Other Respiratory History: 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 Recurrent UTI's. STOVE INSTALLER History: Reports: None Musculoskeletal History: Reports: Fracture Other Musculoskeletal History: hx of fx back and toe- no hardware Neurological History: Reports: Other (See Below) Other Neuro History: hx of motion sickness and claustrophobia Psychiatric History: Reports: Anxiety Other Psychiatric History: occasionall takes Zanax Endocrine/Metabolic History: Reports: Other (See Below) Other Endocrine/Metabolic History: Anorexia Insulin Pump Model and Master Welder: None Hematologic History: Reports: Other (See Below) Other Hematologic History: sepsis Immunologic History: Reports: Other (See Below) Other Immunologic History: hx of sepsis x2 Oncologic (Cancer) History: Reports: None Dermatologic History: Reports: Other (See Below) Other Dermatologic History: DVT - Infectious Disease History Infectious Disease History: Reports: Chicken Pox, Measles Other Infectious Disease History: sepsis - Past Surgical History Head Surgeries/Procedures: Reports: None HEENT Surgical History: Reports: None Cardiovascular Surgical History: Reports: None Respiratory Surgical History: Reports: None GI Surgical History: Reports: Appendectomy, Colonoscopy Female Surgical History: Reports: Breast Biopsy Other Female Surgeries/Procedures: Right Breast Abcess Endocrine Surgical History: Reports: None Neurological Surgical History: Reports: None Musculoskeletal Surgical History: Reports: Arthroscopic Knee Other Musculoskeletal Surgeries/Procedures:: Right knee scope Oncologic Surgical History: Reports: None Dermatological Surgical History: Reports: None Social & Family History - Family History Family Medical History: No Pertinent Family History - Tobacco Use Second Hand Smoke Exposure: No - Caffeine Use Caffeine Use: Reports: Tea - Recreational Drug Use Recreational Drug Use: No ED ROS GENERAL - Review of Systems Review Of Systems: Comprehensive ROS is negative, except as noted in HPI. ED EXAM, GENERAL - Physical Exam Exam: See Below Free Text/Narrative:: My physical exam is in the HPI Course - Vital Signs Last Recorded V/S: Last Vital Signs Temp 36.6 C 10/16/21 21:31 Pulse 83 10/16/21 21:31 Resp 18 10/16/21 21:31 BP 116/82 10/16/21 21:31 Pulse Ox 97 10/16/21 21:31 - Orders/Labs/Meds Orders: Active Orders 24 hr Category Date Time Status Communication Order [RC] STAT Care 10/16/21 21:52 Active Sodium Chloride 0.9% [Saline Flush] Med 10/16/21 21:48 Active 10 ml FLUSH ASDIRECTED PRN Sodium Chloride 0.9% [Saline Flush] Med 10/16/21 21:48 Active 2.5 ml FLUSH ASDIRECTED PRN Saline Lock Insert [OM.PC] Stat Oth 10/16/21 21:48 Ordered Medication Orders Sodium Chloride (Sodium Chloride 0.9% 10 Ml Syringe) 10 ml FLUSH ASDIRECTED PRN PRN Reason: Keep Vein Open Sodium Chloride (Sodium Chloride 0.9% 2.5 Ml Syringe) 2.5 ml FLUSH ASDIRECTED PRN PRN Reason: Keep Vein Open Labs: Laboratory Tests 10/16/21 10/16/21 Range/Units 21:35 21:35 WBC 11.09 H (4.0-11.0) K/uL RBC 3.50 L (4.30-5.90) M/uL Hgb 13.7 (12.0-16.0) g/dL Hct 38.5 (36.0-46.0) % MCV 110.0 H (80.0-98.0) fL MCH 39.1 H (27.0-32.0) pg MCHC 35.6 (31.0-37.0) g/dL RDW Std Deviation 55.7 (28.0-62.0) fl RDW Coeff of S[place] 14 (11.0-15.0) % Plt Count 201 (150-400) K/uL MPV 10.30 (7.40-12.00) fL Neut % (Auto) 67.8 (48.0-80.0) % Lymph % (Auto) 18.8 (16.0-40.0) % [place] % (Auto) 12.4 (0.0-15.0) % Eos % (Auto) 0.5 (0.0-7.0) % Baso % (Auto) 0.5 (0.0-1.5) % Neut # (Auto) 7.5 H (1.4-5.7) K/uL Lymph # (Auto) 2.1 (0.6-2.4) K/uL [place] # (Auto) 1.4 H (0.0-0.8) K/uL Eos # (Auto) 0.1 (0.0-0.7) K/uL Baso # (Auto) 0.1 (0.0-0.1) K/uL Nucleated RBC % 0.0 /100WBC Nucleated RBCs # 0 K/uL Sodium 136 (136-145) mmol/L Potassium 3.2 L (3.5-5.1) mmol/L Chloride 95 L (98-107) mmol/L Carbon Dioxide 28.6 (21.0-32.0) mmol/L BUN 3 L (7.0-18.0) mg/dL Creatinine 0.6 (0.6-1.0) mg/dL Est Cr Clr Drug Dosing TNP Estimated GFR (MDRD) > 60.0 ml/min Glucose 78 (74-106) mg/dL Calcium 8.3 L (8.5-10.1) mg/dL Meds: Medications Generic Name Dose Route Start Last Admin Trade Name Freq PRN Reason Stop Dose Admin Sodium Chloride 10 ml 10/16/21 21:48 Sodium Chloride 0.9% 10 Ml Syringe FLUSH ASDIRECTED PRN Keep Vein Open Sodium Chloride 2.5 ml 10/16/21 21:48 Sodium Chloride 0.9% 2.5 Ml Syringe FLUSH ASDIRECTED PRN Keep Vein Open Discontinued Medications Generic Name Dose Route Start Last Admin Trade Name Freq PRN Reason Stop Dose Admin Sodium Chloride 1,000 mls @ 999 mls/hr 10/16/21 21:48 10/16/21 21:55 Normal Saline IV 10/16/21 22:48 999 mls/hr .Bolus ONE Administration Ondansetron HCl 4 mg 10/16/21 21:48 10/16/21 21:55 Ondansetron 4 Mg/2 Ml Sdv IVPUSH 10/16/21 21:49 4 mg ONETIME ONE Administration Departure - Departure Time of Disposition: 22:48 Disposition: Home, Self-Care 01 Condition: Good Clinical Impression: Constipation, Hematochezia - Discharge Information Instructions: Chronic Constipation, Gastrointestinal Bleeding Forms: ED Department Discharge Additional Instructions: Take magnesium citrate or senna which are [id number] whenever you need to have a bowel movement. Drink plenty of fluids with your Colace or Metamucil or MiraLAX. Make an appointment with the people who did your endoscopy and tell him that you bleeding again. Restart famotidine which is [id number]. [facility] - General Surgery Professional Building [address] [facility], [address] [place] [address] [facility] - Primary Care [address] [place] [id number] [id number] The following information is given to patients seen in the emergency department who are being discharged to home. This information is to outline your options for follow-up care. We provide all patients seen in our emergency department with a follow-up referral. The need for follow-up, as well as the timing and circumstances, are variable depending upon the specifics of your emergency department visit. If you don't have a primary care physician on staff, we will provide you with a referral. We always advise you to contact your personal physician following an emergency department visit to inform them of the circumstance of the visit and for follow-up with them and/or the need for any referrals to a consulting specialist. The emergency department will also refer you to a specialist when appropriate. T his referral assures that you have the opportunity for follow-up care with a specialist. All of these measure are taken in an effort to provide you with optimal care, which includes your follow-up. Under all circumstances we always encourage you to contact your private physician who remains a resource for coordinating your care. When calling for follow-up care, please make the office aware that this follow-up is from your recent emergency room visit. If for any reason you are refused follow-up, please contact the [facility] Emergency Department at and asked to speak to the emergency department charge nurse. Sepsis Event Note (ED) - Evaluation Sepsis Screening Result: No Definite Risk - Focused Exam Vital Signs: Vital Signs Temp Pulse Resp BP Pulse Ox 10/16/21 21:31 36.6 C 83 18 116/82 97 - My Orders Last 24 Hours: My Active Orders 10/16/21 21:48 Sodium Chloride 0.9% [Saline Flush] 10 ml FLUSH ASDIRECTED PRN Sodium Chloride 0.9% [Saline Flush] 2.5 ml FLUSH ASDIRECTED PRN Saline Lock Insert [OM.PC] Stat 10/16/21 21:52 Communication Order [RC] STAT - Assessment/Plan Last 24 Hours: My Active Orders 10/16/21 21:48 Sodium Chloride 0.9% [Saline Flush] 10 ml FLUSH ASDIRECTED PRN Sodium Chloride 0.9% [Saline Flush] 2.5 ml FLUSH ASDIRECTED PRN Saline Lock Insert [OM.PC] Stat 10/16/21 21:52 Communication Order [RC] STAT
[2021-10-16 22:14] LABS: BLOOD UREA NITROGEN,BUN 3 mg/dL (7.0-18.0); CARBON DIOXIDE,CO2 28.6 mmol/L (21.0-32.0); CHLORIDE,CL 95 mmol/L (98-107); GLUCOSE RANDOM 78 mg/dL (74-106); POTASSIUM,K 3.2 mmol/L (3.5-5.1); SODIUM,NA 136 mmol/L (136-145)
== END 2021-10-16 23:06 | disposition home or self-care (01) ==
LOC: MW.ED 20:16
DX: K92.1 Melena (principal); K59.00 Constipation, unspecified; I10 Essential (primary) hypertension; Z88.0 Allergy status to penicillin; Z79.899 Other long term (current) drug therapy
CPT/HCPCS: 36415; 80048; 85025; 96374; 99283; J2405; J7030

== ENCOUNTER 2022-03-18 19:04 | Emergency (ER) | payer SELFPAY ==
[2022-03-18 20:59] LABS: BLOOD UREA NITROGEN,BUN 8 mg/dL (7.0-18.0); CARBON DIOXIDE,CO2 27.2 mmol/L (21.0-32.0); CHLORIDE,CL 97 mmol/L (98-107); GLUCOSE RANDOM 115 mg/dL (74-106); POTASSIUM,K 3.5 mmol/L (3.5-5.1); SODIUM,NA 137 mmol/L (136-145)
[2022-03-18] MEDS ORDERED: cefTRIAXone 1 GM Vial IM ONE (21:22)
[2022-03-18] MEDS ORDERED: Lidocaine 1% PF 2 ML SDV INJECT ONE (21:29)
== END 2022-03-18 21:40 | disposition home or self-care (01) ==
LOC: MW.ED 19:04
DX: J18.9 Pneumonia, unspecified organism (principal); I11.0 Hypertensive heart disease with heart failure; I50.9 Heart failure, unspecified; F41.9 Anxiety disorder, unspecified; F17.210 Nicotine dependence, cigarettes, uncomplicated; Z88.0 Allergy status to penicillin; Z88.8 Allergy status to other drugs, medicaments and biological substances; Z79.899 Other long term (current) drug therapy
CPT/HCPCS: 36415; 71045; 80053; 84484; 84703; 85025; 93005; 96372; 99285; J0696

== ENCOUNTER 2022-05-04 00:15 | Emergency (ER) | payer SELFPAY ==
[2022-05-04 01:41] LABS: ACETAMINOPHEN <2.0 ug/mL; BLOOD UREA NITROGEN,BUN 4 mg/dL (7.0-18.0); CARBON DIOXIDE,CO2 28.3 mmol/L (21.0-32.0); CHLORIDE,CL 107 mmol/L (98-107); GLUCOSE RANDOM 92 mg/dL (74-106); POTASSIUM,K 3.5 mmol/L (3.5-5.1); SODIUM,NA 146 mmol/L (136-145)
[2022-05-04 01:47] LABS: ESTIMATED GFR 111 mL/min (>60)
[2022-05-04 04:13] LABS: ACETAMINOPHEN <2.0 ug/mL
[2022-05-04] MEDS ORDERED: Ondansetron 4 MG/2 ML SDV IVPUSH ONE (11:25)
[2022-05-04] MEDS ORDERED: Ondansetron 4 MG Tab PO ONE (11:29)
== END 2022-05-04 12:20 | disposition home or self-care (01) ==
LOC: MW.ED 00:15
DX: F32.9 Major depressive disorder, single episode, unspecified (principal); T43.3X2A Poisoning by phenothiazine antipsychotics and neuroleptics, intentional self-harm, initial encounter; F10.129 Alcohol abuse with intoxication, unspecified; I11.0 Hypertensive heart disease with heart failure; I50.9 Heart failure, unspecified; F17.210 Nicotine dependence, cigarettes, uncomplicated; Z88.0 Allergy status to penicillin; Z88.8 Allergy status to other drugs, medicaments and biological substances; Z20.822 Contact with and (suspected) exposure to COVID-19; Y90.8 Blood alcohol level of 240 mg/100 ml or more
CPT/HCPCS: 36415; 80053; 80143; 80179; 80305; 80307; 81003; 82140; 83690; 84443; 84703; 85025; 87635; 93005; 99285; A9270; 93010; U0002